=== PATIENT | male | born 1980 | race American Indian/Alaskan Native ===

== ENCOUNTER 2019-02-04 11:15 | Emergency (ER) | payer MEDICARE ==
[2019-02-04 11:25] VITALS: BP 133/70
--- NOTE | 2019-02-04 11:25 | Emergency Department Report ---
Blank Doc - Documentation Documentation: This is a 38-year-old male that presents with sore throat. Exam: ertyhema with thrush noted. This initial assessment/diagnostic orders/clinical plan/treatment(s) is/are subject to change based on patient's health status, clinical progression and re- assessment by fellow clinical providers in the ED. Further treatment and workup at subsequent clinical providers discretion. Patient/guardians urged not to elope from the ED as their condition may be serious if not clinically assessed and managed. Initial orders include: 1- Patient sent to [facility] for further evaluation and treatment 2- strep swab
--- NOTE | 2019-02-04 11:51 | Emergency Department Report ---
ED ENT HPI - General Chief complaint: Sore Throat Stated complaint: THROAT PAIN Time Seen by Provider: 02/04/19 11:23 Source: patient Mode of arrival: Ambulatory Limitations: No Limitations - History of Present Illness Initial comments: This is a 38-year-old male nontoxic, well in appearnce with no signs of distress presents to the ED with c/o sore throat. Patient denies any hoarness or drooling. Denies any fever, chills, headache, nausea, vomiting, chest pain or shortness of breathe. Denies any allergies or PMH. MD complaint: sore throat -: days(s) Location: throat Severity: mild Severity scale (0 -10): 8 Quality: aching Consistency: constant Improves with: none Worsens with: none Associated Symptoms: pain with swallowing, sore throat. denies: fever, cough, gum swelling, toothache, tinnitus, hearing loss, discharge from ear, rhinorrhea - Related Data Previous Rx's Medication Instructions Recorded Last Taken Type Amoxicillin [Amoxicillin TAB] 875 mg PO BID #20 tablet 02/04/19 Unknown Rx Nystatin 400,000 unit PO 4XD 7 Days 02/04/19 Unknown Rx oral.susp Allergies Allergy/AdvReac Type Severity Reaction Status Date / Time No Known Allergies Allergy Verified 02/04/19 11:19 ED Dental HPI - General Chief complaint: Sore Throat Stated complaint: THROAT PAIN Time Seen by Provider: 02/04/19 11:23 Source: patient Mode of arrival: Ambulatory Limitations: No Limitations - Related Data Previous Rx's Medication Instructions Recorded Last Taken Type Amoxicillin [Amoxicillin TAB] 875 mg PO BID #20 tablet 02/04/19 Unknown Rx Nystatin 400,000 unit PO 4XD 7 Days 02/04/19 Unknown Rx oral.susp Allergies Allergy/AdvReac Type Severity Reaction Status Date / Time No Known Allergies Allergy Verified 02/04/19 11:19 ED Review of Systems ROS: Stated complaint: THROAT PAIN Other details as noted in HPI Constitutional: denies: chills, fever Eyes: denies: eye pain, eye discharge, vision change ENT: throat pain. denies: ear pain Respiratory: denies: cough, shortness of breath, wheezing Cardiovascular: denies: chest pain, palpitations Endocrine: no symptoms reported Gastrointestinal: denies: abdominal pain, nausea, diarrhea Genitourinary: denies: urgency, dysuria Musculoskeletal: denies: back pain, joint swelling, arthralgia Skin: denies: rash, lesions Neurological: denies: headache, weakness, paresthesias Psychiatric: denies: anxiety, depression Hematological/Lymphatic: denies: easy bleeding, easy bruising ED Past Medical Hx - Past Medical History Previous Medical History?: No - Surgical History Past Surgical History?: No - Social History Smoking Status: Former Smoker Substance Use Type: None - Medications Home Medications: Home Medications Medication Instructions Recorded Confirmed Last Taken Type Amoxicillin [Amoxicillin TAB] 875 mg PO BID #20 tablet 02/04/19 Unknown Rx Nystatin 400,000 unit PO 4XD 7 Days 02/04/19 Unknown Rx oral.susp ED Physical Exam - General Limitations: No Limitations General appearance: alert, in no apparent distress - Head Head exam: Present: atraumatic, normocephalic - Expanded ENT Exam Expanded Ear exam: Present: normal external inspection Mouth exam: Present: normal external inspection, tongue normal. Absent: drooling, trismus, muffled voice Teeth exam: Present: normal inspection Throat exam: Positive: tonsillar erythema, other (Uvula midline. no abscess. Oral thrush noted.). Negative: tonsillomegaly, tonsillar exudate, R peritonsillar mass, L peritonsillar mass - Neck Neck exam: Present: normal inspection, full ROM. Absent: tenderness, meningismus, lymphadenopathy - Extremities Exam Extremities exam: Present: normal inspection, full ROM - Back Exam Back exam: Present: normal inspection, full ROM - Neurological Exam Neurological exam: Present: alert, oriented X3 - Psychiatric Psychiatric exam: Present: normal affect, normal mood - Skin Skin exam: Present: warm, dry, intact, normal color. Absent: rash ED Course Vital Signs 02/04/19 11:23 Temperature 98.5 F Pulse Rate 78 Blood Pressure 133/70 O2 Sat by Pulse 97 Oximetry - Reevaluation(s) Reevaluation #1: 02/04/19 11:48 Patient is speaking in full sentences with no signs of distress noted. ED Medical Decision Making - Medical Decision Making Patient was instructed to Follow-up with a primary care doctor in 3-5 days or if symptoms worsen and continue return to emergency room as soon as possible. At time of discharge, the patient does not seem toxic or ill in appearance. No acute signs of distress noted. Patient agrees to discharge treatment plan of care. No further questions noted by the patient. Critical care attestation.: If time is entered above; I have spent that time in minutes in the direct care of this critically ill patient, excluding procedure time. ED Disposition Clinical Impression: Oral thrush Pharyngitis Qualifiers: Pharyngitis/tonsillitis etiology: unspecified etiology Qualified Code(s): J02.9 - Acute pharyngitis, unspecified Disposition: TO HOME OR SELFCARE Is pt being admited?: No Does the pt Need Aspirin: No Condition: Stable Instructions: Nystatin (By mouth) Additional Instructions: Follow-up with a primary care doctor in 3-5 days or if symptoms worsen and continue return to emergency room as soon as possible. Prescriptions: Amoxicillin [Amoxicillin TAB] 875 mg PO BID #20 tablet Nystatin 400,000 unit PO 4XD 7 Days oral.susp Referrals: PRIMARY CARE, [Referring] - 3-5 Days EDY VILLA MD [Staff Physician] - 3-5 Days ANNABELLE SKINNER MD [Staff Physician] - 3-5 Days [facility] [Outside] - 3-5 Days [facility] [Outside] - 3-5 Days Forms: Work/School Release Form(ED)
== END 2019-02-04 12:08 | disposition home or self-care (01) ==
LOC: ED 11:15
DX: J02.9 Acute pharyngitis, unspecified (principal); B37.0 Candidal stomatitis
CPT/HCPCS: 87116; 87430; 99283

== ENCOUNTER 2019-04-30 10:46 | Inpatient (IN) | payer MEDICARE, OTHER ==
[2019-04-30] MEDS ORDERED: NACL 0.9% 1000 ML IV ONE (10:56)
--- NOTE | 2019-04-30 10:56 | Event Note ---
ED Screening Note ED Screening Note: hit l foot on dresser last week now with large wound chills now with severe r foot pain pmh none psh none rx none This initial assessment/diagnostic orders/clinical plan/treatment(s) is/are subject to change based on patients health status, clinical progression and re- assessment by fellow clinical providers in the ED. Further treatment and workup at subsequent clinical providers discretion. Patient/guardian urged not to elope from the ED as their condition may be serious if not clinically assessed and managed. Initial orders include:
[2019-04-30] MEDS ORDERED: BOOSTRIX IM ONE (10:59)
[2019-04-30] MEDS ORDERED: NORCO 5/325 PO ONE (11:00)
[2019-04-30] MEDS ORDERED: VANCOMYCIN PHARMACY TO DOSE IV SCH (11:00)
--- NOTE | 2019-04-30 11:20 | Emergency Department Report ---
ED Extremity Problem HPI - General Chief complaint: Extremity Injury, Lower Stated complaint: RT FOOT INJURY Time Seen by Provider: 04/30/19 10:54 Source: patient, family Mode of arrival: Ambulatory Limitations: No Limitations - History of Present Illness Initial comments: 38-year-old male presents to the ED with complaint of right foot injury. Patient states he hit his right foot on the dresser 1 week ago. He reports the foot became swollen, however did not notice any cuts on his foot. States there was no redness. Denies fever. Patient states he has been soaking the foot in Epsom salt but it has gotten worse. Patient has necrosis of the foot. Denies history of diabetes. Has no PCP. MD Complaint: extremity pain, extremity swelling -: week(s) (1) Location: right, other (foot) History of Same: No Quality: aching Consistency: constant Improves with: nothing Worsens with: weight bearing, walking, palpation Associated Symptoms: denies: fever - Related Data Home Medications Medication Instructions Recorded Confirmed Last Taken No Known Home Medications [No 04/30/19 04/30/19 Unknown Reported Home Medications] Allergies Allergy/AdvReac Type Severity Reaction Status Date / Time No Known Allergies Allergy Verified 02/04/19 11:19 ED Review of Systems ROS: Stated complaint: RT FOOT INJURY Other details as noted in HPI Comment: All other systems reviewed and negative Constitutional: denies: chills, fever Musculoskeletal: as per HPI, joint swelling ED Past Medical Hx - Past Medical History Previous Medical History?: No - Surgical History Past Surgical History?: No - Social History Smoking Status: Never Smoker Substance Use Type: None - Medications Home Medications: Home Medications Medication Instructions Recorded Confirmed Last Taken Type No Known Home Medications [No 04/30/19 04/30/19 Unknown History Reported Home Medications] ED Physical Exam - General Limitations: No Limitations General appearance: alert, in no apparent distress - Head Head exam: Present: atraumatic, normocephalic - Eye Eye exam: Present: normal appearance - ENT ENT exam: Present: mucous membranes moist - Neck Neck exam: Present: normal inspection - Respiratory Respiratory exam: Present: normal lung sounds bilaterally. Absent: respiratory distress - Cardiovascular Cardiovascular Exam: Present: normal rhythm, tachycardia - GI/Abdominal GI/Abdominal exam: Absent: distended - Extremities Exam Extremities exam: Present: other (right foot is swollen; anterior, lateral, and plantar aspects of 5th toe is black and necrotic; surrounding area that is boggy with fluid subcutaneously on plantar aspect; 4th toe is swollen with purulent discharge on the plantar aspect of the toe; foul smell present;DP pulse palpable and strong) - Neurological Exam Neurological exam: Present: alert, oriented X3 - Psychiatric Psychiatric exam: Present: normal affect, normal mood - Skin Skin exam: Present: warm, dry ED Course Vital Signs 04/30/19 04/30/19 04/30/19 10:54 11:54 13:00 Temperature 96.7 F L Pulse Rate 102 H 70 79 Respiratory 18 18 18 Rate Blood Pressure 119/75 Blood Pressure 133/70 122/74 [Left] O2 Sat by Pulse 95 97 97 Oximetry - Consultations Consultation #1: 04/30/19 12:45 Spoke w/ Dr Moreira fooot/ankle specialist. Aware of pt, will see. Consultation #2: 04/30/19 13:09 Dr Bingham, vascular, at bedside evaluating patient. ED Medical Decision Making - Lab Data Result diagrams: 04/30/19 11:20 04/30/19 11:20 - Radiology Data Radiology results: report reviewed, image reviewed - Medical Decision Making 38-year-old male who presents to ED with discoloration of right foot. Patient reports he hit his foot on a dresser one week ago, and it progressively turned dark. Patient has combination of dry gangrene and wet gangrene to the fourth and fifth toes, lateral right foot and plantar aspect of the right foot. Dr. Moreira, foot and ankle specialist, was consulted and is aware of the patient. He asked me to obtain vascular surgery consult. Dr. Bingham came down to see the patient. Vital signs normal. Patient is afebrile, wbc's normal, lactic acid is normal. Vancomycin and cefepime given. Labs unremarkable except for hyponatremia. Glucose is normal. Patient admitted to hospitalist, Dr. Pérez, for further management. - Differential Diagnosis gangrene, osteomyelitis Critical Care Time: Yes Critical care time in (mins) excluding proc time.: 35 Critical care attestation.: If time is entered above; I have spent that time in minutes in the direct care of this critically ill patient, excluding procedure time. Critical Care Time: 35 minutes ED Disposition Clinical Impression: Gangrene of right foot Disposition: -09 OP ADMIT IP TO THIS HOSP Is pt being admited?: Yes Condition: Stable Time of Disposition: 13:10
--- NOTE | 2019-04-30 11:32 | XRay Report ---
RIGHT FOOT, 3 views: History: Status post trauma to right fifth toe, draining, concern for osteopenia in There is moderate subcutaneous gas surrounding the right fifth toe. A cellulitis is certainly suspected. No obvious periostitis or bony destruction is identified on x-ray to confirm osteomyelitis. The remaining bony structures are within normal limits. No erosive joint pathology. IMPRESSION: Subcutaneous gas throughout the right fifth toe consistent with a cellulitis. No definitive findings of osteomyelitis on x-ray. If further evaluation is required, MRI right foot with contrast or triple phase bone scan could be considered.
[2019-04-30 11:42] LABS: Hematocrit 28.1 % (35.5-45.6); Hemoglobin 9.5 gm/dl (11.8-15.2); Mean Corpuscular HGB Conc 34 % (32-34); Mean Corpuscular Volume 84 fl (84-94); Platelet Count 402 K/mm3 (140-440); Red Blood Count 3.36 M/mm3 (3.65-5.03); Red Cell Distribution Width 15.3 % (13.2-15.2)
[2019-04-30] MEDS ORDERED: VANCOMYCIN 1,750 MG in NACL 0.9% 500 ML 500 ML IV ONE (12:00)
[2019-04-30 12:02] LABS: Alanine Aminotransferase 22 units/L (7-56); BUN/Creatinine Ratio 17; Blood Urea Nitrogen 17 mg/dL (9-20); Calcium 8.7 mg/dL (8.4-10.2); Hemolysis Index 0
[2019-04-30] MEDS ORDERED: MAXIPIME/NS 1 GM/100 ML 1 GM/100 ML BAG IV ONE (12:06)
[2019-04-30 12:20] LABS: Anisocytosis 1+; Eosinophils % (Manual) 0 % (0.0-4.3); Ovalocytes 1+; Platelet Estimate Consistent w Auto; Poikilocytosis 1+; Tear Drop Cells Few; Total Cells Counted 100
--- NOTE | 2019-04-30 13:27 | Consultation ---
History of Present Illness - Reason for Consult Consult date: 04/30/19 Right 5th toe gangrene - History of Present Illness Patient with a history of hitting toe on an end table 1 week ago with p rogression of discoloration presents to the ER with gangrene of the right fifth toe as well as the lateral aspect of the right fourth toe extending to the metatarsal heads. Dry gangrene distally with wet gangrene proximally. The margins are well demarcated. The patient has an easily palpable dorsalis pedis and posterior tibial artery on both feet. His right foot is diffusely edematous and warm without exudates. The patient states that he has no history of IV drug abuse. Medications and Allergies Allergies Allergy/AdvReac Type Severity Reaction Status Date / Time No Known Allergies Allergy Verified 02/04/19 11:19 Home Medications Medication Instructions Recorded Confirmed Last Taken Type No Known Home Medications [No 04/30/19 04/30/19 Unknown History Reported Home Medications] Active Meds: Active Medications Vancomycin HCl 1,750 mg/ (Sodium Chloride) 535 mls @ 333 mls/hr IV ONCE ONE; Protocol Stop: 04/30/19 13:36 Last Admin: 04/30/19 12:22 Dose: 333 mls/hr Documented by: Vancomycin HCl 1,250 mg/ (Sodium Chloride) 275 mls @ 166.667 mls/hr IV Q12HR S Review of Systems All systems: negative Exam - Constitutional Vitals: Temp Pulse Resp BP Pulse Ox 96.7 F L 102 H 18 119/75 95 04/30/19 10:54 04/30/19 10:54 04/30/19 10:54 04/30/19 10:54 04/30/19 10:54 General appearance: Present: no acute distress - EENT Eyes: Present: PERRL, EOM intact ENT: hearing intact - Neck Neck: Present: supple, normal ROM - Respiratory Respiratory effort: normal - Cardiovascular Rhythm: regular - Extremities Extremities: abnormal - Abdominal General gastrointestinal: Present: deferred Male genitourinary: Present: deferred - Rectal Rectal Exam: deferred - Psychiatric Psychiatric: appropriate mood/affect, cooperative Results - Labs CBC & Chem 7: 04/30/19 11:20 04/30/19 11:20 Labs: Abnormal lab results 04/30/19 04/30/19 Range/Units 11:20 11:20 WBC 3.7 L (4.5-11.0) K/mm3 RBC 3.36 L (3.65-5.03) M/mm3 Hgb 9.5 L (11.8-15.2) gm/dl Hct 28.1 L (35.5-45.6) % RDW 15.3 H (13.2-15.2) % Monocytes % (Manual) 12.0 H (0.0-7.3) % Basophils % (Manual) 2.0 H (0.0-1.8) % Lymphocytes # (Manual) 0.6 L (1.2-5.4) K/mm3 Sodium 130 L (137-145) mmol/L Chloride 90.4 L (98-107) mmol/L Glucose 116 H (75-100) mg/dL Alkaline Phosphatase 720 H (35-129) units/L Albumin 3.0 L (3.9-5) g/dL Assessment and Plan Patient presenting with right fifth and lateral right fourth toe gangrene. He has no underlying diabetes or disease state consistent with microvascular disease. His x-ray demonstrates no fracture of his toe however, subcutaneous emphysema is present involving the right fifth phalanx. The gas does not appear to extend to the metatarsal. Would recommend arterial duplex with ABIs however, would expect this to be normal. Additionally, will order a CTA of the abdomen and pelvis with runoff to the feet. Given the distribution of the gangrene, it appears to be embolic in nature. The patient will most likely require surgical amputation of the fifth toe. It is uncertain at the fourth toe is viable given the distribution of the gangrene along the lateral aspect. ER consulted Dr. Moreira.
--- NOTE | 2019-04-30 15:27 | Vascular Lab Report ---
PROCEDURE: VL ARTERIAL DUPLEX LE BILAT TECHNIQUE: Duplex Doppler ultrasound of either bilateral lower extremity arteries or arterial bypass grafts was performed with image documentation. HISTORY: gangrenous foot COMPARISONS: None . FINDINGS: RIGHT LOWER EXTREMITY: Arterial waveforms: Triphasic . Thrombus: None . Stenosis: None . Color signal: Normal . Significant segmental velocity differential: None . Arterial bypass graft: Not present .Stenosis: None . LEFT LOWER EXTREMITY: Arterial waveforms: Triphasic . Thrombus: None . Stenosis: None . Color signal: Normal . Significant segmental velocity differential: None . Arterial bypass graft: Not present .Stenosis: None . IMPRESSION: No evidence of significant arterial insufficiency in the lower extremities. This document is electronically signed by Josselin Taylor MD., April 30 2019 03:24:50 PM ET
--- NOTE | 2019-04-30 16:28 | Cat Scan Report ---
PROCEDURE: CT ANGIO ABD/FEMORAL ABD AORTA HISTORY: right 5th toe gangrene FINDINGS: Contrast-enhanced CT angiography of the abdomen, pelvis and both legs was performed following the int ravenous administration of iodinated contrast. Data was reformatted into sagittal and coronal planes. ABDOMEN: The abdominal aorta is normal in size. The celiac axis, superior mesenteric artery and inferior mesen teric artery are all patent. There are 2 left renal arteries and single right renal artery, all of which are widely patent. The visualized portion of the liver appears unremarkable. Most the spleen is excluded from the exam. No focal pancreatic lesion is seen. The gallbladder is distended but is otherwise unremarkable. The kidneys are not included in their entirety on the examination. The visualized portion of the kidn eys is unremarkable. Both kidneys excrete the injected contrast. The adrenal glands are excluded from the exam. CTA PELVIS: The right and left common iliac, external iliac, internal iliac and common femoral arteries are widel y patent. There is a normal appendix. There is no evidence of diverticulitis. The urinary bladder is within nor mal limits. CTA right leg: The right superficial femoral, deep femoral, popliteal, anterior tibial, posterior tibial and peronea l arteries appear widely patent. There is a patent dorsalis pedis and a patent medial plantar arch. CTA left leg: The left superficial femoral, deep femoral, popliteal, anterior tibial, posterior tibia l and peroneal arteries are widely patent. There is a patent dorsalis pedis and patent medial plantar arch. IMPRESSION: CTA ABDOMEN: The mesenteric arterial vasculature and renal arterial vasculature are widely patent Pelvis: The pelvic arterial vasculature is widely patent CTA right le vessel runoff to the right ankle CTA left le vessel runoff to the left ankle This document is electronically signed by Tulio Gee MD., April 30 2019 04:27:03 PM ET
[2019-04-30] MEDS ORDERED: IBUPROFEN PO PRN (20:03)
[2019-04-30] MEDS ORDERED: REGLAN IV PRN (20:03)
[2019-04-30] MEDS ORDERED: SODIUM CHLORIDE FLUSH SYRINGE 10 ML IV PRN (20:03)
[2019-04-30] MEDS ORDERED: ZOFRAN IV PRN (20:03)
[2019-04-30] MEDS: NACL 0.9% 1000 ML 1,000 ML IV SCH (20:38)
[2019-04-30] MEDS: SODIUM CHLORIDE FLUSH SYRINGE 10 ML IV SCH ×2 (20:39→22:54)
[2019-04-30] MEDS ORDERED: VANCOMYCIN 1,250 MG in NACL 0.9% 250ML 250 ML IV SCH (22:00)
[2019-04-30] MEDS: CLEOCIN 900 MG/50 mL 900 MG/50 ML BAG IV SCH (22:49)
[2019-04-30] MEDS: PEPCID IV SCH (22:51)
[2019-04-30 23:12] LABS: Bilirubin,Urine NEG (Negative); Blood,Urine SM (Negative); Color,Urine Yellow (Yellow); Mucus,Urine FEW /HPF
[2019-04-30 23:20] LABS: Amphetamine Screen,Urine PRESUMPTIVE NEGATIVE; Benzodiazepines Screen,Urine PRESUMPTIVE NEGATIVE; Cocaine Screen,Urine PRESUMPTIVE NEGATIVE; Methadone Screen,Urine PRESUMPTIVE NEGATIVE; Opiate Screen,Urine PRESUMPTIVE NEGATIVE
[2019-04-30 23:52] LABS: Cannabinoid Screen,Urine PRESUMPTIVE POSITIVE
[2019-05-01] MEDS: CLEOCIN 900 MG/50 mL 900 MG/50 ML BAG IV SCH ×2 (05:16→13:14)
--- NOTE | 2019-05-01 07:31 | History and Physical Report ---
History of Present Illness Date of examination: 04/30/19 Date of admission: 04/30/19 13:11 Chief complaint: Rt foot discoloration History of present illness: 38-year-old male presents to the ED with complaint of right foot injury. Patient states he hit his right foot on the dresser 1 week ago with progression of discoloration presents to the ER with gangrene of the right fifth toe as well as the lateral aspect of the right fourth toe extending to the distal foot. Dry gangrene distally with wet gangrene proximally. The margins are well demarcated. His right foot is diffusely edematous and warm without exudates. The patient states that he has no history of IV drug abuse.Not a smoker Past Medical History Previous Medical History?: No Surgical History Past Surgical History?: No Social History Smoking Status: Never Smoker Substance Use Type: None Medications Home Medications: Home Medications Medication Instructions Recorded Confirmed Last Taken Type No Known Home Medications [No 04/30/19 04/30/19 Unknown History Reported Home Medications] Review of Systems ROS: Stated complaint: RT FOOT INJURY Other details as noted in HPI Comment: All other systems reviewed and negative Constitutional: denies: chills, fever Musculoskeletal: as per HPI, joint swelling Medications and Allergies Allergies Allergy/AdvReac Type Severity Reaction Status Date / Time No Known Allergies Allergy Verified 02/04/19 11:19 Home Medications Medication Instructions Recorded Confirmed Last Taken Type No Known Home Medications [No 04/30/19 04/30/19 Unknown History Reported Home Medications] Active Meds: Active Medications Acetaminophen (Tylenol) 650 mg PO Q4H PRN PRN Reason: Pain MILD(1-3)/Fever >100.5/TERRY Famotidine (Pepcid) 20 mg IV BID MARIPOSA Last Admin: 04/30/19 22:51 Dose: 20 mg Documented by: Hydromorphone HCl (Dilaudid) 0.5 mg IV Q3H PRN PRN Reason: Pain , Severe (7-10) Sodium Chloride (Nacl 0.9% 1000 Ml) 1,000 mls @ 75 mls/hr IV DIRECT MARIPOSA Last Admin: 04/30/19 20:38 Dose: 75 mls/hr Documented by: Clindamycin HCl (Cleocin 900 Mg/50 Ml) 900 mg in 50 mls @ 100 mls/hr IV Q8HR MARIPOSA; Protocol Last Admin: 05/01/19 05:16 Dose: 100 mls/hr Documented by: Ibuprofen (Ibuprofen) 600 mg PO Q6H PRN PRN Reason: Pain, Mild (1-3) Metoclopramide HCl (Reglan) 10 mg IV Q6H PRN PRN Reason: Nausea And Vomiting Ondansetron HCl (Zofran) 4 mg IV Q8H PRN PRN Reason: Nausea And Vomiting Oxycodone/Acetaminophen (Percocet 5/325) 1 tab PO Q6H PRN PRN Reason: Pain, Moderate (4-6) Sodium Chloride (Sodium Chloride Flush Syringe 10 Ml) 10 ml IV BID [facility] Last Admin: 04/30/19 22:54 Dose: Not Given Documented by: Sodium Chloride (Sodium Chloride Flush Syringe 10 Ml) 10 ml IV PRN PRN PRN Reason: LINE FLUSH Exam - Constitutional Vitals: Temp Pulse Resp BP Pulse Ox 97.5 F L 91 H 18 128/79 93 05/01/19 05:48 05/01/19 05:48 05/01/19 05:48 05/01/19 05:48 05/01/19 05:48 General appearance: Present: no acute distress, well-nourished - EENT Eyes: Present: PERRL ENT: hearing intact, clear oral mucosa - Neck Neck: Present: supple, normal ROM - Respiratory Respiratory effort: normal Respiratory: bilateral: CTA - Cardiovascular Heart rate: 78 Rhythm: regular Heart Sounds: Present: S1 & S2. Absent: rub, click - Extremities Extremities: no ischemia, pulses intact, pulses symmetrical, No edema, abnormal (Rt foot gangrene changes involving Rt 5th toe and Rt 4th toe partially.) Peripheral Pulses: within normal limits - Abdominal General gastrointestinal: Present: soft, non-tender, non-distended, normal bowel sounds Male genitourinary: Present: normal - Rectal Rectal Exam: deferred - Integumentary Integumentary: Present: clear, warm, dry - Musculoskeletal Musculoskeletal: gait normal, strength equal bilaterally - Psychiatric Psychiatric: appropriate mood/affect, intact judgment & insight - Neurologic Neurologic: CNII-XII intact, moves all extremities - Allied Health Allied health notes reviewed: nursing, case management Results - Labs CBC & Chem 7: 04/30/19 11:20 04/30/19 11:20 Labs: Laboratory Last Values WBC 3.7 K/mm3 (4.5-11.0) L 04/30/19 11:20 RBC 3.36 M/mm3 (3.65-5.03) L 04/30/19 11:20 Hgb 9.5 gm/dl (11.8-15.2) L 04/30/19 11:20 Hct 28.1 % (35.5-45.6) L 04/30/19 11:20 MCV 84 fl (84-94) 04/30/19 11:20 MCH 28 pg (28-32) 04/30/19 11:20 MCHC 34 % (32-34) 04/30/19 11:20 RDW 15.3 % (13.2-15.2) H 04/30/19 11:20 Plt Count 402 K/mm3 (140-440) 04/30/19 11:20 Add Manual Diff Complete 04/30/19 11:20 Total Counted 100 04/30/19 11:20 Seg Neuts % (Manual) 70.0 % (40.0-70.0) 04/30/19 11:20 1.0 % 04/30/19 11:20 15.0 % (13.4-35.0) 04/30/19 11:20 Reactive Lymphs % (Man) 0 % 04/30/19 11:20 12.0 % (0.0-7.3) H 04/30/19 11:20 0 % (0.0-4.3) 04/30/19 11:20 2.0 % (0.0-1.8) H 04/30/19 11:20 0 % 04/30/19 11:20 0 % 04/30/19 11:20 0 % 04/30/19 11:20 0 % 04/30/19 11:20 Nucleated RBC % Not Reportable 04/30/19 11:20 Seg Neutrophils # Man 2.6 K/mm3 (1.8-7.7) 04/30/19 11:20 Band Neutrophils # 0.0 K/mm3 04/30/19 11:20 0.6 K/mm3 (1.2-5.4) L 04/30/19 11:20 Abs React Lymphs (Man) 0.0 K/mm3 04/30/19 11:20 0.4 K/mm3 (0.0-0.8) 04/30/19 11:20 0.0 K/mm3 (0.0-0.4) 04/30/19 11:20 0.1 K/mm3 (0.0-0.1) 04/30/19 11:20 0.0 K/mm3 04/30/19 11:20 0.0 K/mm3 04/30/19 11:20 0.0 K/mm3 04/30/19 11:20 Blast Cells # 0.0 K/mm3 04/30/19 11:20 WBC Morphology Not Reportable 04/30/19 11:20 Hypersegmented Neuts Not Reportable 04/30/19 11:20 Hyposegmented Neuts Not Reportable 04/30/19 11:20 Hypogranular Neuts Not Reportable 04/30/19 11:20 Not Reportable 04/30/19 11:20 Not Reportable 04/30/19 11:20 Not Reportable 04/30/19 11:20 Not Reportable 04/30/19 11:20 Not Reportable 04/30/19 11:20 Not Reportable 04/30/19 11:20 Consistent w auto 04/30/19 11:20 Not Reportable 04/30/19 11:20 Plt Clumps, EDTA Not Reportable 04/30/19 11:20 Not Reportable 04/30/19 11:20 Not Reportable 04/30/19 11:20 Not Reportable 04/30/19 11:20 Plt Morphology Comment Not Reportable 04/30/19 11:20 RBC Morphology Not Reportable 04/30/19 11:20 Dimorphic RBCs Not Reportable 04/30/19 11:20 Not Reportable 04/30/19 11:20 Not Reportable 04/30/19 11:20 1+ 04/30/19 11:20 1+ 04/30/19 11:20 Not Reportable 04/30/19 11:20 Not Reportable 04/30/19 11:20 Not Reportable 04/30/19 11:20 Not Reportable 04/30/19 11:20 Not Reportable 04/30/19 11:20 Not Reportable 04/30/19 11:20 Few 04/30/19 11:20 1+ 04/30/19 11:20 Not Reportable 04/30/19 11:20 Not Reportable 04/30/19 11:20 Not Reportable 04/30/19 11:20 Not Reportable 04/30/19 11:20 Not Reportable 04/30/19 11:20 Not Reportable 04/30/19 11:20 Not Reportable 04/30/19 11:20 Acanthocytes (Spur) Not Reportable 04/30/19 11:20 Rouleaux Not Reportable 04/30/19 11:20 Not Reportable 04/30/19 11:20 Not Reportable 04/30/19 11:20 Not Reportable 04/30/19 11:20 Not Reportable 04/30/19 11:20 Hem Pathologist Commnt No 04/30/19 11:20 Sodium 130 mmol/L (137-145) L 04/30/19 11:20 Potassium 4.3 mmol/L (3.6-5.0) 04/30/19 11:20 Chloride 90.4 mmol/L (98-107) L 04/30/19 11:20 Carbon Dioxide 25 mmol/L (22-30) 04/30/19 11:20 19 mmol/L 04/30/19 11:20 BUN 17 mg/dL (9-20) 04/30/19 11:20 1.0 mg/dL (0.8-1.5) 04/30/19 11:20 Estimated GFR > 60 ml/min 04/30/19 11:20 17 % 04/30/19 11:20 Glucose 116 mg/dL (75-100) H 04/30/19 11:20 5.8 % (4-6) 04/30/19 11:20 Lactic Acid 0.70 mmol/L (0.7-2.0) 04/30/19 16:19 Calcium 8.7 mg/dL (8.4-10.2) 04/30/19 11:20 0.40 mg/dL (0.1-1.2) 04/30/19 11:20 AST 37 units/L (5-40) 04/30/19 11:20 ALT 22 units/L (7-56) 04/30/19 11:20 720 units/L (35-129) H 04/30/19 11:20 8.1 g/dL (6.3-8.2) 04/30/19 11:20 3.0 g/dL (3.9-5) L 04/30/19 11:20 0.6 % 04/30/19 11:20 Yellow (Yellow) 04/30/19 23:00 Clear (Clear) 04/30/19 23:00 6.0 (5.0-7.0) 04/30/19 23:00 Ur Specific [place] 1.032 (1.003-1.030) H 04/30/19 23:00 100 mg/dl mg/dL (Negative) 04/30/19 23:00 Neg mg/dL (Negative) 04/30/19 23:00 Neg mg/dL (Negative) 04/30/19 23:00 Sm (Negative) 04/30/19 23:00 Neg (Negative) 04/30/19 23:00 Neg (Negative) 04/30/19 23:00 4.0 mg/dL (<2.0) 04/30/19 23:00 Ur Leukocyte Esterase Neg (Negative) 04/30/19 23:00 4.0 /HPF (0.0-6.0) 04/30/19 23:00 10.0 /HPF (0.0-6.0) 04/30/19 23:00 Few /HPF 04/30/19 23:00 Presumptive negative 04/30/19 23:00 Presumptive negative 04/30/19 23:00 Ur Barbiturates Screen Presumptive negative 04/30/19 23:00 Ur Phencyclidine Scrn Presumptive negative 04/30/19 23:00 Ur Amphetamines Screen Presumptive negative 04/30/19 23:00 U Benzodiazepines Scrn Presumptive negative 04/30/19 23:00 Presumptive negative 04/30/19 23:00 U Marijuana (THC) Screen Presumptive positive 04/30/19 23:00 Disclamer 04/30/19 23:00 - Imaging and Cardiology Imaging and Cardiology: Rt Foot xray IMPRESSION: Subcutaneous gas throughout the right fifth toe consistent with a cellulitis. No definitive findings of osteomyelitis on x-ray. If further evaluation is required, MRI right foot with contrast or triple phase bone scan could be considered. CTA Abdomen with run off IMPRESSION: CTA ABDOMEN: The mesenteric arterial vasculature and renal arterial vasculature are widely patent Pelvis: The pelvic arterial vasculature is widely patent CTA right le vessel runoff to the right ankle CTA left le vessel runoff to the left ankle This document is electronically signed by Tulio Gee MD., April 30 2019 04:27:03 PM ET Transcribed By: MIKA Arterial duplex Mike IMPRESSION: No evidence of significant arterial insufficiency in the lower extremities. Assessment and Plan Advance Directives: Yes (Full code) VTE prophylaxis?: Chemical Plan of care discussed with patient/family: Yes - Patient Problems (1) Gangrene of right foot Current Visit: Yes Status: Acute Plan to address problem: IV Clindamycin started ID consult requested IR consult requested Patient is not a smoker Embolic in nature?? (2) Cellulitis and abscess of foot Current Visit: Yes Status: Acute Plan to address problem: IV abx for now (3) Anemia Current Visit: Yes Status: Chronic Qualifiers: Anemia type: unspecified type Qualified Code(s): D64.9 - Anemia, unspecified Plan to address problem: Anemia w/u (4) Mild tetrahydrocannabinol (THC) abuse Current Visit: Yes Status: Chronic Plan to address problem: Counselled (5) DVT prophylaxis Current Visit: Yes Status: Acute Plan to address problem: On Lovenox
[2019-05-01 07:52] LABS: Hematocrit 23.5 % (35.5-45.6); Hemoglobin 7.9 gm/dl (11.8-15.2); Mean Corpuscular HGB Conc 34 % (32-34); Mean Corpuscular Volume 82 fl (84-94); Platelet Count 326 K/mm3 (140-440); Red Blood Count 2.85 M/mm3 (3.65-5.03); Red Cell Distribution Width 14.8 % (13.2-15.2)
[2019-05-01 08:17] LABS: Alanine Aminotransferase 22 units/L (7-56); Albumin 2.5 g/dL (3.9-5); BUN/Creatinine Ratio 14; Blood Urea Nitrogen 13 mg/dL (9-20); Calcium 7.9 mg/dL (8.4-10.2); Hemolysis Index 0
--- NOTE | 2019-05-01 09:12 | Progress Note ---
Assessment and Plan We will obtain a CTA of the chest to determine if there is any additional source. If none is found, the patient may need a cardiac consult and echocardiogram. The patient has excellent arterial flow in to his foot and will heal any surgical procedure. Subjective Date of service: 05/01/19 Principal diagnosis: right fourth and fifth toe gangrene Interval history: Patient with right fourth and fifth toe gangrene. A CTA of the abdomen and pelvis and vascular ultrasound review. The patient is essentially wide open arterial vasculature. There is no flow to the fifth digit with continuous emphysema around the fifth phalanges. Objective - Constitutional Vitals: Vital Signs - 12hr 04/30/19 05/01/19 23:49 05:48 Temperature 102.9 F H 97.5 F L Pulse Rate 87 91 H Respiratory 18 18 Rate Blood Pressure 129/72 128/79 O2 Sat by Pulse 95 93 Oximetry General appearance: Present: no acute distress - EENT Eyes: EOM intact ENT: hearing intact - Neck Neck: supple, normal ROM - Respiratory Respiratory effort: normal - Breasts Breasts: deferred Extremities: abnormal - Gastrointestinal General gastrointestinal: Present: deferred Rectal Exam: deferred - Genitourinary Male genitourinary: deferred - Neurologic Neurologic: no focal deficits - Psychiatric Psychiatric: appropriate mood/affect, cooperative - Labs CBC & Chem 7: 05/01/19 07:15 05/01/19 07:15 Labs: Abnormal lab results 04/30/19 04/30/19 04/30/19 Range/Units 11:20 11:20 23:00 WBC 3.7 L (4.5-11.0) K/mm3 RBC 3.36 L (3.65-5.03) M/mm3 Hgb 9.5 L (11.8-15.2) gm/dl Hct 28.1 L (35.5-45.6) % MCV (84-94) fl RDW 15.3 H (13.2-15.2) % Monocytes % (Manual) 12.0 H (0.0-7.3) % Basophils % (Manual) 2.0 H (0.0-1.8) % Lymphocytes # (Manual) 0.6 L (1.2-5.4) K/mm3 Sodium 130 L (137-145) mmol/L Chloride 90.4 L (98-107) mmol/L Glucose 116 H (75-100) mg/dL Calcium (8.4-10.2) mg/dL Alkaline Phosphatase 720 H (35-129) units/L Albumin 3.0 L (3.9-5) g/dL Ur Specific [place] 1.032 H (1.003-1.030) 05/01/19 05/01/19 Range/Units 07:15 07:15 WBC 3.5 L (4.5-11.0) K/mm3 RBC 2.85 L (3.65-5.03) M/mm3 Hgb 7.9 L (11.8-15.2) gm/dl Hct 23.5 L (35.5-45.6) % MCV 82 L (84-94) fl RDW (13.2-15.2) % Monocytes % (Manual) (0.0-7.3) % Basophils % (Manual) (0.0-1.8) % Lymphocytes # (Manual) (1.2-5.4) K/mm3 Sodium 133 L (137-145) mmol/L Chloride 96.0 L (98-107) mmol/L Glucose 102 H (75-100) mg/dL Calcium 7.9 L (8.4-10.2) mg/dL Alkaline Phosphatase 568 H (35-129) units/L Albumin 2.5 L (3.9-5) g/dL Ur Specific [place] (1.003-1.030) Medications & Allergies - Medications Allergies/Adverse Reactions: Allergies No Known Allergies Allergy (Verified 02/04/19 11:19) Home Medications: Home Medications Medication Instructions Recorded Confirmed Last Taken Type No Known Home Medications [No 04/30/19 04/30/19 Unknown History Reported Home Medications] Active Medications: Generic Name Dose Route Start Last Admin Trade Name Freq PRN Reason Stop Dose Admin Acetaminophen 650 mg 04/30/19 20:03 Tylenol PO Q4H PRN Pain MILD(1-3)/Fever >100.5/TERRY Famotidine 20 mg 04/30/19 22:00 04/30/19 22:51 Pepcid IV 20 mg BID MARIPOSA Administration Hydromorphone HCl 0.5 mg 04/30/19 20:03 Dilaudid IV Q3H PRN Pain , Severe (7-10) Sodium Chloride 1,000 mls @ 75 mls/hr 04/30/19 21:00 04/30/19 20:38 Nacl 0.9% 1000 Ml IV 75 mls/hr DIRECT MARIPOSA Administration Clindamycin HCl 900 mg in 50 mls @ 100 mls/hr 04/30/19 22:00 05/01/19 05:16 Cleocin 900 Mg/50 Ml IV 100 mls/hr Q8HR MARIPOSA Administration Protocol Ibuprofen 600 mg 04/30/19 20:03 Ibuprofen PO Q6H PRN Pain, Mild (1-3) Metoclopramide HCl 10 mg 04/30/19 20:03 Reglan IV Q6H PRN Nausea And Vomiting Ondansetron HCl 4 mg 04/30/19 20:03 Zofran IV Q8H PRN Nausea And Vomiting Oxycodone/Acetaminophen 1 tab 04/30/19 20:03 Percocet 5/325 PO Q6H PRN Pain, Moderate (4-6) Sodium Chloride 10 ml 04/30/19 22:00 04/30/19 22:54 Sodium Chloride Flush Syringe 10 Ml IV Not Given BID MARIPOSA Sodium Chloride 10 ml 04/30/19 20:03 Sodium Chloride Flush Syringe 10 Ml IV PRN PRN LINE FLUSH
--- NOTE | 2019-05-01 09:12 | Progress Note ---
Assessment and Plan Assessment and plan: patient is 38-year-old male presents to the ED with complaint of right foot injury. Patient states he hit his right foot on the dresser 1 week ago with progression of discoloration presents to the ER with gangrene of the right fifth toe as well as the lateral aspect of the right fourth toe extending to the distal foot. Dry gangrene distally with wet gangrene proximally. The margins are well demarcated. His right foot is diffusely edematous and warm without exudates. The patient states that he has no history of IV drug abuse.Not a smoker Right foot cellulitis, gangrene On iv Abx Consult ID Gangrene toes right foot Bilat infiltrates on CXR Pneumonia versus pulm edema will get BNP, Echo Hyponatremia Repeat in am marijuana use Full code status History Interval history: Right foot swelling, pain, discoloration Hospitalist Physical - Physical exam Narrative exam: Gen: Not in acute distress, lying in bed, HEENT: Normocephalic, atraumatic Neck: supple, no JVD Heart: S1 and S2 reg, no murmurs, rubs or gallop Lungs: Bilateral crackles, no wheeze Abd: soft, mild tender lower abdomen, normal BS Ext: Right foot covered with dressing, Neuro: Awake,alert, oriented x 3, moves all ext, non focal Psych:Normal mood - Constitutional Vitals: Temp Pulse Resp BP Pulse Ox 97.5 F L 91 H 18 128/79 93 05/01/19 05:48 05/01/19 05:48 05/01/19 05:48 05/01/19 05:48 05/01/19 05:48 General appearance: Present: no acute distress Results - Labs CBC & Chem 7: 05/02/19 07:14 05/02/19 07:14 Labs: Laboratory Last Values WBC 3.5 K/mm3 (4.5-11.0) L 05/01/19 07:15 RBC 2.85 M/mm3 (3.65-5.03) L 05/01/19 07:15 Hgb 7.9 gm/dl (11.8-15.2) L 05/01/19 07:15 Hct 23.5 % (35.5-45.6) L 05/01/19 07:15 MCV 82 fl (84-94) L 05/01/19 07:15 MCH 28 pg (28-32) 05/01/19 07:15 MCHC 34 % (32-34) 05/01/19 07:15 RDW 14.8 % (13.2-15.2) 05/01/19 07:15 Plt Count 326 K/mm3 (140-440) 05/01/19 07:15 Add Manual Diff Complete 04/30/19 11:20 Total Counted 100 04/30/19 11:20 Seg Neuts % (Manual) 70.0 % (40.0-70.0) 04/30/19 11:20 1.0 % 04/30/19 11:20 15.0 % (13.4-35.0) 04/30/19 11:20 Reactive Lymphs % (Man) 0 % 04/30/19 11:20 12.0 % (0.0-7.3) H 04/30/19 11:20 0 % (0.0-4.3) 04/30/19 11:20 2.0 % (0.0-1.8) H 04/30/19 11:20 0 % 04/30/19 11:20 0 % 04/30/19 11:20 0 % 04/30/19 11:20 0 % 04/30/19 11:20 Nucleated RBC % Not Reportable 04/30/19 11:20 Seg Neutrophils # Man 2.6 K/mm3 (1.8-7.7) 04/30/19 11:20 Band Neutrophils # 0.0 K/mm3 04/30/19 11:20 0.6 K/mm3 (1.2-5.4) L 04/30/19 11:20 Abs React Lymphs (Man) 0.0 K/mm3 04/30/19 11:20 0.4 K/mm3 (0.0-0.8) 04/30/19 11:20 0.0 K/mm3 (0.0-0.4) 04/30/19 11:20 0.1 K/mm3 (0.0-0.1) 04/30/19 11:20 0.0 K/mm3 04/30/19 11:20 0.0 K/mm3 04/30/19 11:20 0.0 K/mm3 04/30/19 11:20 Blast Cells # 0.0 K/mm3 04/30/19 11:20 WBC Morphology Not Reportable 04/30/19 11:20 Hypersegmented Neuts Not Reportable 04/30/19 11:20 Hyposegmented Neuts Not Reportable 04/30/19 11:20 Hypogranular Neuts Not Reportable 04/30/19 11:20 Not Reportable 04/30/19 11:20 Not Reportable 04/30/19 11:20 Not Reportable 04/30/19 11:20 Not Reportable 04/30/19 11:20 Not Reportable 04/30/19 11:20 Not Reportable 04/30/19 11:20 Consistent w auto 04/30/19 11:20 Not Reportable 04/30/19 11:20 Plt Clumps, EDTA Not Reportable 04/30/19 11:20 Not Reportable 04/30/19 11:20 Not Reportable 04/30/19 11:20 Not Reportable 04/30/19 11:20 Plt Morphology Comment Not Reportable 04/30/19 11:20 RBC Morphology Not Reportable 04/30/19 11:20 Dimorphic RBCs Not Reportable 04/30/19 11:20 Not Reportable 04/30/19 11:20 Not Reportable 04/30/19 11:20 1+ 04/30/19 11:20 1+ 04/30/19 11:20 Not Reportable 04/30/19 11:20 Not Reportable 04/30/19 11:20 Not Reportable 04/30/19 11:20 Not Reportable 04/30/19 11:20 Not Reportable 04/30/19 11:20 Not Reportable 04/30/19 11:20 Few 04/30/19 11:20 1+ 04/30/19 11:20 Not Reportable 04/30/19 11:20 Not Reportable 04/30/19 11:20 Not Reportable 04/30/19 11:20 Not Reportable 04/30/19 11:20 Not Reportable 04/30/19 11:20 Not Reportable 04/30/19 11:20 Not Reportable 04/30/19 11:20 Acanthocytes (Spur) Not Reportable 04/30/19 11:20 Rouleaux Not Reportable 04/30/19 11:20 Not Reportable 04/30/19 11:20 Not Reportable 04/30/19 11:20 Not Reportable 04/30/19 11:20 Not Reportable 04/30/19 11:20 Hem Pathologist Commnt No 04/30/19 11:20 Sodium 133 mmol/L (137-145) L 05/01/19 07:15 Potassium 3.9 mmol/L (3.6-5.0) 05/01/19 07:15 Chloride 96.0 mmol/L (98-107) L 05/01/19 07:15 Carbon Dioxide 24 mmol/L (22-30) 05/01/19 07:15 17 mmol/L 05/01/19 07:15 BUN 13 mg/dL (9-20) 05/01/19 07:15 0.9 mg/dL (0.8-1.5) 05/01/19 07:15 Estimated GFR > 60 ml/min 05/01/19 07:15 14 % 05/01/19 07:15 Glucose 102 mg/dL (75-100) H 05/01/19 07:15 5.8 % (4-6) 04/30/19 11:20 Lactic Acid 0.70 mmol/L (0.7-2.0) 04/30/19 16:19 Calcium 7.9 mg/dL (8.4-10.2) L 05/01/19 07:15 0.40 mg/dL (0.1-1.2) 05/01/19 07:15 AST 34 units/L (5-40) 05/01/19 07:15 ALT 22 units/L (7-56) 05/01/19 07:15 568 units/L (35-129) H 05/01/19 07:15 6.6 g/dL (6.3-8.2) 05/01/19 07:15 2.5 g/dL (3.9-5) L 05/01/19 07:15 0.6 % 05/01/19 07:15 Yellow (Yellow) 04/30/19 23:00 Clear (Clear) 04/30/19 23:00 6.0 (5.0-7.0) 04/30/19 23:00 Ur Specific [place] 1.032 (1.003-1.030) H 04/30/19 23:00 100 mg/dl mg/dL (Negative) 04/30/19 23:00 Neg mg/dL (Negative) 04/30/19 23:00 Neg mg/dL (Negative) 04/30/19 23:00 Sm (Negative) 04/30/19 23:00 Neg (Negative) 04/30/19 23:00 Neg (Negative) 04/30/19 23:00 4.0 mg/dL (<2.0) 04/30/19 23:00 Ur Leukocyte Esterase Neg (Negative) 04/30/19 23:00 4.0 /HPF (0.0-6.0) 04/30/19 23:00 10.0 /HPF (0.0-6.0) 04/30/19 23:00 Few /HPF 04/30/19 23:00 Presumptive negative 04/30/19 23:00 Presumptive negative 04/30/19 23:00 Ur Barbiturates Screen Presumptive negative 04/30/19 23:00 Ur Phencyclidine Scrn Presumptive negative 04/30/19 23:00 Ur Amphetamines Screen Presumptive negative 04/30/19 23:00 U Benzodiazepines Scrn Presumptive negative 04/30/19 23:00 Presumptive negative 04/30/19 23:00 U Marijuana (THC) Screen Presumptive positive 04/30/19 23:00 Disclamer 04/30/19 23:00 Active Medications - Current Medications Current Medications: Generic Name Dose Route Start Last Admin Trade Name Freq PRN Reason Stop Dose Admin Acetaminophen 650 mg 04/30/19 20:03 Tylenol PO Q4H PRN Pain MILD(1-3)/Fever >100.5/TERRY Famotidine 20 mg 04/30/19 22:00 04/30/19 22:51 Pepcid IV 20 mg BID MARIPOSA Administration Hydromorphone HCl 0.5 mg 04/30/19 20:03 Dilaudid IV Q3H PRN Pain , Severe (7-10) Sodium Chloride 1,000 mls @ 75 mls/hr 04/30/19 21:00 04/30/19 20:38 Nacl 0.9% 1000 Ml IV 75 mls/hr DIRECT MARIPOSA Administration Clindamycin HCl 900 mg in 50 mls @ 100 mls/hr 04/30/19 22:00 05/01/19 05:16 Cleocin 900 Mg/50 Ml IV 100 mls/hr Q8HR MARIPOSA Administration Protocol Ibuprofen 600 mg 04/30/19 20:03 Ibuprofen PO Q6H PRN Pain, Mild (1-3) Metoclopramide HCl 10 mg 04/30/19 20:03 Reglan IV Q6H PRN Nausea And Vomiting Ondansetron HCl 4 mg 04/30/19 20:03 Zofran IV Q8H PRN Nausea And Vomiting Oxycodone/Acetaminophen 1 tab 04/30/19 20:03 Percocet 5/325 PO Q6H PRN Pain, Moderate (4-6) Sodium Chloride 10 ml 04/30/19 22:00 04/30/19 22:54 Sodium Chloride Flush Syringe 10 Ml IV Not Given BID [facility] Sodium Chloride 10 ml 04/30/19 20:03 Sodium Chloride Flush Syringe 10 Ml IV PRN PRN LINE FLUSH
[2019-05-01 09:53] LABS: Eosinophils # (Auto) 0.1 K/mm3 (0.0-0.4); Eosinophils % (Auto) 1.8 % (0.0-4.3); Monocytes # (Auto) 0.2 K/mm3 (0.0-0.8); Monocytes % (Auto) 5.6 % (0.0-7.3)
[2019-05-01] MEDS: PEPCID IV SCH ×2 (09:53→21:46)
[2019-05-01] MEDS: SODIUM CHLORIDE FLUSH SYRINGE 10 ML IV SCH (09:54)
[2019-05-01] MEDS: TYLENOL PO PRN (10:14)
[2019-05-01] MEDS: DILAUDID IV PRN ×2 (10:16→22:09)
[2019-05-01] MEDS: NACL 0.9% 1000 ML 1,000 ML IV SCH ×2 (10:22→21:58)
[2019-05-01 12:06] LABS: Band Neutrophils # (Manual) 0.1 K/mm3; Basophils % (Manual) 0 % (0.0-1.8); Eosinophils % (Manual) 0 % (0.0-4.3); Hypochromasia 1+; Total Cells Counted 100
[2019-05-01 12:07] LABS: Platelet Estimate Consistent w Auto; Tear Drop Cells Few
--- NOTE | 2019-05-01 14:48 | XRay Report ---
PROCEDURE: XR CHEST 1V AP TECHNIQUE: Chest radiograph, AP portable upright view. HISTORY: Cough. COMPARISONS: None currently available. FINDINGS: Cardiac silhouette is within normal limits. Prominent bilateral pulmonary markings with airspace opacities. Worse on the left. Focal ill-defined opacity in the left retrocardiac region. No pneumothorax. No effusion. There are no suspicious osseous lesions. IMPRESSION: * Suspect pulmonary vascular congestion with edema. Differential diagnosis includes acute pneumonia and pneumonitis. This document is electronically signed by Waldo Hart MD., May 01 2019 02:47:07 PM ET
[2019-05-01] MEDS: HEPARIN SUB-Q SCH ×2 (16:36→21:46)
--- NOTE | 2019-05-01 17:22 | Consultation ---
History of Present Illness - Reason for Consult Consult date: 05/01/19 R foot cellulitis and gangrene Requesting physician: YADI JACKSON - History of Present Illness The patient is a 38-year-old male with no significant past medical history. He states that he hit his right foot to the dresser about a week ago. Following this, the foot started getting swollen as well and his is fourth and fifth toe started turning dark. He tried to self treat this by soaking the foot in Epsom salts and also applying some kind of alcohol solution that he obtained from [place]. With it getting worse with fevers and pain, he came to the emergency room yesterday and was hospitalized. He was noted to have findings concerning for gangrene of the fifth toe. Vascular surgery was consulted, CTA abdomen with bilateral lower extremity runoff was ordered and was unremarkable. Surgery is also been consulted for possible amputation. ID was consulted for antibiotic recommendations. He has been having fever along with pain in his right foot. MAXIMUM TEMPERATURE here has been 103.1F. Occasionally smokes some illicit substances, denies any IV drug use. Denies any MSM behavior. Refusing HIV test. History of STD. Drinks alcohol occasionally Review of Systems: General: + for fever HEENT: no new visual disturbance Respiratory: No cough, sputum, hemoptysis or shortness of breath Cardiovascular: No chest pain, syncope Gastrointestinal: No nausea, vomiting or diarrhea Genitourinary: No dysuria or hematuria Musculoskeletal: No new or worsening neck pain or back pain Neurologic: No headaches, seizures Hematologic: No easy bruising or bleeding Endocrine: No night sweats or acute weight loss Skin: negative for rash, jaundice Psychiatric: No suicidal or homicidal ideation Past History Past Medical History: No medical history Family history: no significant family history Medications and Allergies Allergies Allergy/AdvReac Type Severity Reaction Status Date / Time No Known Allergies Allergy Verified 02/04/19 11:19 Home Medications Medication Instructions Recorded Confirmed Last Taken Type No Known Home Medications [No 04/30/19 04/30/19 Unknown History Reported Home Medications] Active Meds: Active Medications Acetaminophen (Tylenol) 650 mg PO Q4H PRN PRN Reason: Pain MILD(1-3)/Fever >100.5/TERRY Last Admin: 05/01/19 10:14 Dose: 650 mg Documented by: Famotidine (Pepcid) 20 mg IV BID [facility] Last Admin: 05/01/19 09:53 Dose: 20 mg Documented by: Heparin Sodium (Porcine) (Heparin) 5,000 unit SUB-Q Q8HR [facility] Last Admin: 05/01/19 16:36 Dose: 5,000 unit Documented by: Hydromorphone HCl (Dilaudid) 0.5 mg IV Q3H PRN PRN Reason: Pain , Severe (7-10) Last Admin: 05/01/19 10:16 Dose: 0.5 mg Documented by: Sodium Chloride (Nacl 0.9% 1000 Ml) 1,000 mls @ 75 mls/hr IV DIRECT [facility] Last Admin: 05/01/19 10:22 Dose: 75 mls/hr Documented by: Clindamycin HCl (Cleocin 900 Mg/50 Ml) 900 mg in 50 mls @ 100 mls/hr IV Q8HR [facility]; Protocol Last Admin: 05/01/19 13:14 Dose: 100 mls/hr Documented by: Ibuprofen (Ibuprofen) 600 mg PO Q6H PRN PRN Reason: Pain, Mild (1-3) Metoclopramide HCl (Reglan) 10 mg IV Q6H PRN PRN Reason: Nausea And Vomiting Ondansetron HCl (Zofran) 4 mg IV Q8H PRN PRN Reason: Nausea And Vomiting Oxycodone/Acetaminophen (Percocet 5/325) 1 tab PO Q6H PRN PRN Reason: Pain, Moderate (4-6) Sodium Chloride (Sodium Chloride Flush Syringe 10 Ml) 10 ml IV BID [facility] Last Admin: 05/01/19 09:54 Dose: 10 ml Documented by: Sodium Chloride (Sodium Chloride Flush Syringe 10 Ml) 10 ml IV PRN PRN PRN Reason: LINE FLUSH Physical Examination - Physical Exam Narrative exam: Physical Exam: Constitutional: Alert, cooperative. No acute distress Head, Ears, Nose: Normocephalic, atraumatic. External ears, nose normal Eyes: Conjunctivae/corneas clear. No icterus. No ptosis. Neck: Supple, no meningeal signs Oral: dentition fair, no thrush Cardiovascular: S1, S2 normal. Respiratory: Good air entry, clear to auscultation bilaterally GI: Soft, non-tender; bowel sounds normal. No peritoneal signs Musculoskeletal: R foot with swelling, warmth and tenderness, 5th toe with gangrene and foul smell, 4th toe with swelling. Skin: No rash or abscess Hem/Lymphatic: No palpable cervical or supraclavicular nodes. No lymphangitis Psych: Mood ok. Affect normal Neurological: Awake, alert, oriented. No gross abnormality - Constitutional Vitals: Vital Signs Temp Pulse Resp BP Pulse Ox 99.3 F 74 20 122/74 95 05/01/19 12:05 05/01/19 12:05 05/01/19 12:05 05/01/19 12:05 05/01/19 12:05 Temperature -Last 24 Hours Temperature 99.3 F Temperature 103.1 F Temperature 97.5 F Temperature 102.9 F Results - Labs CBC & Chem 7: 05/01/19 07:15 05/01/19 07:15 Labs: Abnormal lab results 04/30/19 05/01/19 05/01/19 Range/Units 23:00 07:15 07:15 WBC 3.5 L (4.5-11.0) K/mm3 RBC 2.85 L (3.65-5.03) M/mm3 Hgb 7.9 L (11.8-15.2) gm/dl Hct 23.5 L (35.5-45.6) % MCV 82 L (84-94) fl Seg Neutrophils % 79.3 H (40.0-70.0) % Monocytes % (Manual) 20.0 H (0.0-7.3) % Lymphocytes # (Manual) 0.5 L (1.2-5.4) K/mm3 Sodium 133 L (137-145) mmol/L Chloride 96.0 L (98-107) mmol/L Glucose 102 H (75-100) mg/dL Calcium 7.9 L (8.4-10.2) mg/dL Alkaline Phosphatase 568 H (35-129) units/L Albumin 2.5 L (3.9-5) g/dL Ur Specific [place] 1.032 H (1.003-1.030) - Imaging and Cardiology Chest x-ray: report reviewed, image reviewed (Chest x-ray shows diffuse bilateral air space opacities) Assessment and Plan Imaging: Arterial duplex was negative for significant arterial insufficiency X-ray of the right foot showed subcutaneous gas throughout the right fifth toe. Cultures: 04/30/2019 blood culture: Negative A/P: 38-year-old male with no significant past medical history, admitted with: 1) Right foot cellulitis with gangrene of the 5th toe: ?traumatic in etiology. Xray with evidence of gas. Surgery has been consulted for possible amputation. Patient not diabetic. Vascular surgery also evaluated, no arterial insufficiency noted on imaging studies. 2) Sepsis secondary to above. 3) CXR with b/l airspace disease: no respiratory symptoms. ?pneumonia. Continue abx. Recs: Treat empirically with IV cefepime, Flagyl and vancomycin Clinically, no concern for necrotizing fasciitis Agree with surgical consultation to eval for amputation of the toe Cooper Smith MD [facility] C: [phone] O: [phone] F: [phone]
[2019-05-01] MEDS: FLAGYL 500 MG/100 ML 500 MG/100 ML BAG IV SCH ×2 (19:29→21:58)
[2019-05-01] MEDS: PERCOCET 5/325 PO PRN (19:33)
--- NOTE | 2019-05-01 20:32 | Cat Scan Report ---
PROCEDURE: CT ANGIO CHEST TECHNIQUE: Computerized tomographic angiography of the chest was performed after the IV injection of iodinated nonionic contrast including image processing. The image data was postprocessed using 2-di mensional multiplanar reformatted (MPR) and 3-dimensional (MIP and/or volume rendered) techniques. Au tomated exposure control, adjustment of mA and/or kV according to patient size, or iterative reconstr uction dose optimization techniques were utilized. CT DOSE LENGTH PRODUCT: 534.1 mGycm HISTORY: 5th toe embolism COMPARISONS: CXR 05/01/2019 . FINDINGS: Heart and pericardium: Normal. Thoracic aorta: Normal. Pulmonary vasculature: Normal. Lymph nodes: No enlarged thoracic lymph nodes. Lungs: There are numerous diffuse patchy groundglass infiltrates present in all lobes of both lungs. The right middle lobe is partially spared. Areas of tree-in-bud formation are noted. Findings sugges t infection, likely atypical infection such as viral or atypical bacterial. Bacterial is not entirely excluded. Hypersensitivity pneumonitis is also not excluded. Pleural space: No effusion, thickening, or pneumothorax. Musculoskeletal structures: No significant abnormality. Upper abdominal structures: No significant abnormality. IMPRESSION: 1. No evidence for pulmonary embolism 2. Diffuse patchy asymmetric groundglass opacities bilaterally. Findings are strongly suggestive of i nfection. Bacterial, atypical bacterial, viral be considered. This document is electronically signed by Chelsea Victoria MD., May 01 2019 08:31:11 PM ET
[2019-05-01] MEDS: MAXIPIME/NS 2 GM/100 ML 2 GM/100 ML BAG IV SCH (21:49)
[2019-05-02] MEDS: PERCOCET 5/325 PO PRN ×2 (00:25→10:42)
[2019-05-02] MEDS: SODIUM CHLORIDE FLUSH SYRINGE 10 ML IV SCH ×3 (00:25→21:49)
[2019-05-02] MEDS: DILAUDID IV PRN ×3 (05:39→21:56)
[2019-05-02] MEDS: HEPARIN SUB-Q SCH ×3 (05:44→21:49)
[2019-05-02] MEDS: FLAGYL 500 MG/100 ML 500 MG/100 ML BAG IV SCH ×3 (05:48→21:48)
[2019-05-02 07:43] LABS: Hematocrit 23.4 % (35.5-45.6); Mean Corpuscular HGB Conc 34 % (32-34); Mean Corpuscular Volume 82 fl (84-94); Platelet Count 341 K/mm3 (140-440); Red Blood Count 2.85 M/mm3 (3.65-5.03); Red Cell Distribution Width 14.8 % (13.2-15.2)
[2019-05-02 08:03] LABS: BUN/Creatinine Ratio 15; Blood Urea Nitrogen 12 mg/dL (9-20); Calcium 7.9 mg/dL (8.4-10.2); Hemolysis Index 0
[2019-05-02] MEDS: PEPCID IV SCH ×2 (10:36→21:49)
[2019-05-02] MEDS: MAXIPIME/NS 2 GM/100 ML 2 GM/100 ML BAG IV SCH ×2 (10:36→21:48)
--- NOTE | 2019-05-02 11:20 | Progress Note ---
Assessment and Plan Cultures: 04/30/2019 blood culture: Negative A/P: 38-year-old male with no significant past medical history, admitted with: 1) Right foot cellulitis with gangrene of the 5th toe: ?traumatic in etiology. Xray with evidence of gas. Surgery has been consulted for possible amputation. Patient not diabetic. Arterial duplex was negative for significant arterial insufficiency. Vascular on board. X-ray of the right foot showed subcutaneous gas throughout the right fifth toe. 2) Sepsis secondary to above. 3) CXR with b/l airspace disease: no respiratory symptoms. ?pneumonia. Continue abx. 4) Elevated alk phos: ?bone related. Monitor for now. AST, ALT and bilirubin are normal. 5) New fever: Fever noted on 05/01/19 103.1. etiology most likely 5th toe gangrene. low grade fever continuing Recs: Continue Cefepime 2 gm IV every 12 hours, D2 Contiinue Flagyl 500mg every 8 hours, D2 Continue Vancomycin PK consult follow-up surgical evaluation for 5th toe amputation [facility] M: [phone] O:[phone] Subjective Date of service: 05/02/19 Principal diagnosis: right fourth and fifth toe gangrene Interval history: Patient seen and examined. Sitting up in bed. Denies right 5th toe pain. low grade fever. Objective - Exam Narrative Exam: Constitutional: Alert, cooperative. No acute distress Head, Ears, Nose: Normocephalic, atraumatic. External ears, nose normal Eyes: Conjunctivae/corneas clear. No icterus. No ptosis. Neck: Supple, no meningeal signs Oral: dentition fair, no thrush Cardiovascular: S1, S2 normal. Respiratory: Good air entry, clear to auscultation bilaterally GI: Soft, non-tender; bowel sounds normal. No peritoneal signs Musculoskeletal: R foot with swelling, warmth and tenderness, 5th toe with gangrene and foul smell, 4th toe with swelling. Skin: No rash or abscess Hem/Lymphatic: No palpable cervical or supraclavicular nodes. No lymphangitis Psych: Mood ok. Affect normal Neurological: Awake, alert, oriented. No gross abnormality - Constitutional Vitals: Vital Signs Temp Pulse Resp BP Pulse Ox 100.2 F H 80 18 130/80 97 05/02/19 04:49 05/02/19 04:49 05/02/19 04:49 05/02/19 04:49 05/02/19 04:49 Temperature -Last 24 Hours Temperature 100.2 F Temperature 99.6 F Temperature 100.0 F Temperature 99.3 F - Labs CBC & Chem 7: 05/02/19 07:14 05/02/19 07:14 Labs: Abnormal lab results 05/01/19 05/02/19 05/02/19 Range/Units 07:15 07:14 07:14 WBC 3.2 L (4.5-11.0) K/mm3 RBC 2.85 L (3.65-5.03) M/mm3 Hgb 8.0 L (11.8-15.2) gm/dl Hct 23.4 L (35.5-45.6) % MCV 82 L (84-94) fl Monocytes % (Manual) 20.0 H (0.0-7.3) % Lymphocytes # (Manual) 0.5 L (1.2-5.4) K/mm3 Sodium 132 L (137-145) mmol/L Chloride 94.5 L (98-107) mmol/L Glucose 114 H (75-100) mg/dL Calcium 7.9 L (8.4-10.2) mg/dL
[2019-05-02] MEDS ORDERED: VANCOMYCIN PHARMACY TO DOSE IV SCH (12:00)
[2019-05-02] MEDS: ROBITUSSIN PO PRN (12:05)
[2019-05-02] MEDS ORDERED: VANCOMYCIN 1,750 MG in NACL 0.9% 500 ML 500 ML IV ONE (12:15)
--- NOTE | 2019-05-02 16:06 | Progress Note ---
Assessment and Plan Assessment and plan: patient is 38-year-old male presents to the ED with complaint of right foot injury. Patient states he hit his right foot on the dresser 1 week ago with progression of discoloration presents to the ER with gangrene of the right fifth toe as well as the lateral aspect of the right fourth toe extending to the distal foot. Dry gangrene distally with wet gangrene proximally. The margins are well demarcated. His right foot is diffusely edematous and warm without exudates. The patient states that he has no history of IV drug abuse.Not a smoker Sepsis due to right foot cellulitis, gangrene and bilateral pneumonia. present on admission Now on Cefepime and Vancomycin Right foot cellulitis, gangrene On iv Abx- Cefepime and Vancomycin ID Physician following Gangrene toes right foot On iv Abx Dr. Bingham following fever due to sepsis Leukopenia Follow Bilat infiltrates on CXR, ground glass appearance on CT Most likely Pneumonia versus pulm edema BNP normal Echo EF 45-50%. Will consult cardiology consulted Pulm Hyponatremia Repeat in am marijuana use Full code status History Interval history: Right foot swelling, pain, discoloration cough Hospitalist Physical - Physical exam Narrative exam: Gen: Not in acute distress, lying in bed, HEENT: Normocephalic, atraumatic Neck: supple, no JVD Heart: S1 and S2 reg, no murmurs, rubs or gallop Lungs: Bilateral crackles, no wheeze Abd: soft, mild tender lower abdomen, normal BS Ext: Right foot covered with dressing, Neuro: Awake,alert, oriented x 3, moves all ext, non focal Psych:Normal mood - Constitutional Vitals: Temp Pulse Resp BP Pulse Ox 102.8 F H 85 20 129/77 96 05/02/19 11:55 05/02/19 11:55 05/02/19 11:55 05/02/19 11:55 05/02/19 11:55 General appearance: Present: no acute distress Results - Labs CBC & Chem 7: 05/02/19 07:14 05/02/19 07:14 Labs: Laboratory Last Values WBC 3.2 K/mm3 (4.5-11.0) L 05/02/19 07:14 RBC 2.85 M/mm3 (3.65-5.03) L 05/02/19 07:14 Hgb 8.0 gm/dl (11.8-15.2) L 05/02/19 07:14 Hct 23.4 % (35.5-45.6) L 05/02/19 07:14 MCV 82 fl (84-94) L 05/02/19 07:14 MCH 28 pg (28-32) 05/02/19 07:14 MCHC 34 % (32-34) 05/02/19 07:14 RDW 14.8 % (13.2-15.2) 05/02/19 07:14 Plt Count 341 K/mm3 (140-440) 05/02/19 07:14 Gates % (Auto) 5.6 % (0.0-7.3) 05/01/19 07:15 Eos % (Auto) 1.8 % (0.0-4.3) 05/01/19 07:15 [place] # 0.2 K/mm3 (0.0-0.8) 05/01/19 07:15 Eos # 0.1 K/mm3 (0.0-0.4) 05/01/19 07:15 Baso # 0.0 K/mm3 (0.0-0.1) 05/01/19 07:15 Add Manual Diff Complete 05/01/19 07:15 Total Counted 100 05/01/19 07:15 Seg Neutrophils % 79.3 % (40.0-70.0) H 05/01/19 07:15 Seg Neuts % (Manual) 64.0 % (40.0-70.0) 05/01/19 07:15 2.0 % 05/01/19 07:15 14.0 % (13.4-35.0) 05/01/19 07:15 Reactive Lymphs % (Man) 0 % 05/01/19 07:15 20.0 % (0.0-7.3) H 05/01/19 07:15 0 % (0.0-4.3) 05/01/19 07:15 0 % (0.0-1.8) 05/01/19 07:15 0 % 05/01/19 07:15 0 % 05/01/19 07:15 0 % 05/01/19 07:15 0 % 05/01/19 07:15 Nucleated RBC % Not Reportable 05/01/19 07:15 Seg Neutrophils # 2.5 K/mm3 (1.8-7.7) 05/01/19 07:15 Seg Neutrophils # Man 2.2 K/mm3 (1.8-7.7) 05/01/19 07:15 Band Neutrophils # 0.1 K/mm3 05/01/19 07:15 0.5 K/mm3 (1.2-5.4) L 05/01/19 07:15 Abs React Lymphs (Man) 0.0 K/mm3 05/01/19 07:15 0.7 K/mm3 (0.0-0.8) 05/01/19 07:15 0.0 K/mm3 (0.0-0.4) 05/01/19 07:15 0.0 K/mm3 (0.0-0.1) 05/01/19 07:15 0.0 K/mm3 05/01/19 07:15 0.0 K/mm3 05/01/19 07:15 0.0 K/mm3 05/01/19 07:15 Blast Cells # 0.0 K/mm3 05/01/19 07:15 WBC Morphology Not Reportable 05/01/19 07:15 Hypersegmented Neuts Not Reportable 05/01/19 07:15 Hyposegmented Neuts Not Reportable 05/01/19 07:15 Hypogranular Neuts Not Reportable 05/01/19 07:15 Not Reportable 05/01/19 07:15 Not Reportable 05/01/19 07:15 Not Reportable 05/01/19 07:15 Not Reportable 05/01/19 07:15 Not Reportable 05/01/19 07:15 Not Reportable 05/01/19 07:15 Consistent w auto 05/01/19 07:15 Not Reportable 05/01/19 07:15 Plt Clumps, EDTA Not Reportable 05/01/19 07:15 Not Reportable 05/01/19 07:15 Not Reportable 05/01/19 07:15 Not Reportable 05/01/19 07:15 Plt Morphology Comment Not Reportable 05/01/19 07:15 RBC Morphology Not Reportable 05/01/19 07:15 Dimorphic RBCs Not Reportable 05/01/19 07:15 Not Reportable 05/01/19 07:15 1+ 05/01/19 07:15 Not Reportable 05/01/19 07:15 Not Reportable 05/01/19 07:15 Not Reportable 05/01/19 07:15 Not Reportable 05/01/19 07:15 Not Reportable 05/01/19 07:15 Not Reportable 05/01/19 07:15 Not Reportable 05/01/19 07:15 Not Reportable 05/01/19 07:15 Few 05/01/19 07:15 Not Reportable 05/01/19 07:15 Not Reportable 05/01/19 07:15 Not Reportable 05/01/19 07:15 Not Reportable 05/01/19 07:15 Not Reportable 05/01/19 07:15 Not Reportable 05/01/19 07:15 Not Reportable 05/01/19 07:15 Few 05/01/19 07:15 Acanthocytes (Spur) Not Reportable 05/01/19 07:15 Rouleaux Not Reportable 05/01/19 07:15 Not Reportable 05/01/19 07:15 Not Reportable 05/01/19 07:15 Not Reportable 05/01/19 07:15 Not Reportable 05/01/19 07:15 Hem Pathologist Commnt No 05/01/19 07:15 Sodium 132 mmol/L (137-145) L 05/02/19 07:14 Potassium 3.8 mmol/L (3.6-5.0) 05/02/19 07:14 Chloride 94.5 mmol/L (98-107) L 05/02/19 07:14 Carbon Dioxide 25 mmol/L (22-30) 05/02/19 07:14 16 mmol/L 05/02/19 07:14 BUN 12 mg/dL (9-20) 05/02/19 07:14 0.8 mg/dL (0.8-1.5) 05/02/19 07:14 Estimated GFR > 60 ml/min 05/02/19 07:14 15 % 05/02/19 07:14 Glucose 114 mg/dL (75-100) H 05/02/19 07:14 5.8 % (4-6) 04/30/19 11:20 Lactic Acid 0.70 mmol/L (0.7-2.0) 04/30/19 16:19 Calcium 7.9 mg/dL (8.4-10.2) L 05/02/19 07:14 0.40 mg/dL (0.1-1.2) 05/01/19 07:15 AST 34 units/L (5-40) 05/01/19 07:15 ALT 22 units/L (7-56) 05/01/19 07:15 568 units/L (35-129) H 05/01/19 07:15 NT-Pro-B Natriuret Pep 297.9 pg/mL (0-450) 05/01/19 15:48 6.6 g/dL (6.3-8.2) 05/01/19 07:15 2.5 g/dL (3.9-5) L 05/01/19 07:15 0.6 % 05/01/19 07:15 Yellow (Yellow) 04/30/19 23:00 Clear (Clear) 04/30/19 23:00 6.0 (5.0-7.0) 04/30/19 23:00 Ur Specific [place] 1.032 (1.003-1.030) H 04/30/19 23:00 100 mg/dl mg/dL (Negative) 04/30/19 23:00 Neg mg/dL (Negative) 04/30/19 23:00 Neg mg/dL (Negative) 04/30/19 23:00 Sm (Negative) 04/30/19 23:00 Neg (Negative) 04/30/19 23:00 Neg (Negative) 04/30/19 23:00 4.0 mg/dL (<2.0) 04/30/19 23:00 Ur Leukocyte Esterase Neg (Negative) 04/30/19 23:00 4.0 /HPF (0.0-6.0) 04/30/19 23:00 10.0 /HPF (0.0-6.0) 04/30/19 23:00 Few /HPF 04/30/19 23:00 Presumptive negative 04/30/19 23:00 Presumptive negative 04/30/19 23:00 Ur Barbiturates Screen Presumptive negative 04/30/19 23:00 Ur Phencyclidine Scrn Presumptive negative 04/30/19 23:00 Ur Amphetamines Screen Presumptive negative 04/30/19 23:00 U Benzodiazepines Scrn Presumptive negative 04/30/19 23:00 Presumptive negative 04/30/19 23:00 U Marijuana (THC) Screen Presumptive positive 04/30/19 23:00 Disclamer 04/30/19 23:00 Active Medications - Current Medications Current Medications: Generic Name Dose Route Start Last Admin Trade Name Freq PRN Reason Stop Dose Admin Acetaminophen 650 mg 04/30/19 20:03 05/01/19 10:14 Tylenol PO 650 mg Q4H PRN Administration Pain MILD(1-3)/Fever >100.5/TERRY Famotidine 20 mg 04/30/19 22:00 05/02/19 10:36 Pepcid IV 20 mg BID [facility] Administration Guaifenesin 200 mg 05/02/19 09:15 05/02/19 12:05 Robitussin PO 200 mg Q4H PRN Administration Cough Heparin Sodium (Porcine) 5,000 unit 05/01/19 16:00 05/02/19 13:01 Heparin SUB-Q 5,000 unit Q8HR [facility] Administration Hydromorphone HCl 0.5 mg 04/30/19 20:03 05/02/19 14:51 Dilaudid IV 0.5 mg Q3H PRN Administration Pain , Severe (7-10) Sodium Chloride 1,000 mls @ 75 mls/hr 04/30/19 21:00 05/01/19 21:58 Nacl 0.9% 1000 Ml IV 75 mls/hr DIRECT [facility] Administration Cefepime HCl 2 gm in 100 mls @ 200 mls/hr 05/01/19 22:00 05/02/19 10:36 Maxipime/Ns 2 Gm/100 Ml IV 200 mls/hr Q12HR [facility] Administration Protocol Metronidazole 500 mg in 100 mls @ 100 mls/hr 05/01/19 18:00 05/02/19 13:01 Flagyl 500 Mg/100 Ml IV 100 mls/hr Q8HR [facility] Administration Protocol Vancomycin HCl 1,250 mg/ 275 mls @ 166.667 mls/hr 05/03/19 01:00 Sodium Chloride IV Q12H [facility] Ibuprofen 600 mg 04/30/19 20:03 05/02/19 12:16 Ibuprofen PO 600 mg Q6H PRN Administration Pain, Mild (1-3) Metoclopramide HCl 10 mg 04/30/19 20:03 Reglan IV Q6H PRN Nausea And Vomiting Ondansetron HCl 4 mg 04/30/19 20:03 Zofran IV Q8H PRN Nausea And Vomiting Oxycodone/Acetaminophen 1 tab 04/30/19 20:03 05/02/19 10:42 Percocet 5/325 PO 1 tab Q6H PRN Administration Pain, Moderate (4-6) Sodium Chloride 10 ml 04/30/19 22:00 05/02/19 10:37 Sodium Chloride Flush Syringe 10 Ml IV 10 ml BID [facility] Administration Sodium Chloride 10 ml 04/30/19 20:03 Sodium Chloride Flush Syringe 10 Ml IV PRN PRN LINE FLUSH
[2019-05-03] MEDS: VANCOMYCIN 1,250 MG in NACL 0.9% 250ML 250 ML IV SCH ×2 (01:23→13:12)
[2019-05-03] MEDS: ROBITUSSIN PO PRN ×2 (01:27→18:05)
[2019-05-03] MEDS: DILAUDID IV PRN ×3 (03:59→22:07)
[2019-05-03] MEDS: HEPARIN SUB-Q SCH ×3 (05:22→21:18)
[2019-05-03] MEDS: FLAGYL 500 MG/100 ML 500 MG/100 ML BAG IV SCH ×3 (05:22→21:18)
[2019-05-03] MEDS: TYLENOL PO PRN (05:31)
[2019-05-03 07:22] LABS: Hematocrit 24.6 % (35.5-45.6); Hemoglobin 8.4 gm/dl (11.8-15.2); Mean Corpuscular HGB Conc 34 % (32-34); Mean Corpuscular Volume 82 fl (84-94); Platelet Count 345 K/mm3 (140-440); Red Blood Count 3.01 M/mm3 (3.65-5.03); Red Cell Distribution Width 14.8 % (13.2-15.2)
[2019-05-03 07:53] LABS: BUN/Creatinine Ratio 17; Blood Urea Nitrogen 12 mg/dL (9-20); Calcium 7.9 mg/dL (8.4-10.2); Hemolysis Index 0
[2019-05-03] MEDS: MAXIPIME/NS 2 GM/100 ML 2 GM/100 ML BAG IV SCH ×2 (09:36→21:19)
[2019-05-03] MEDS: PEPCID IV SCH ×2 (09:36→21:18)
[2019-05-03] MEDS: SODIUM CHLORIDE FLUSH SYRINGE 10 ML IV SCH ×2 (09:37→21:18)
--- NOTE | 2019-05-03 10:42 | Progress Note ---
Assessment and Plan Cultures: 04/30/2019 blood: no growth 05/01/2019 sputum : contaminated A/P: 38-year-old male with no significant past medical history, admitted with: 1) Right foot cellulitis with gangrene of the 5th toe: ?traumatic in etiology. Xray with evidence of gas. Surgery has been consulted for possible amputation. Patient not diabetic. Arterial duplex was negative for significant arterial in sufficiency. Vascular on board. X-ray of the right foot showed subcutaneous gas throughout the right fifth toe. 2) Sepsis secondary to above. 3) CXR with b/l airspace disease: no respiratory symptoms. ?pneumonia. Continue abx. 4) Elevated alk phos: ?bone related. Monitor for now. AST, ALT and bilirubin are normal. 5) New fever: continuing. etiology most likely 5th toe gangrene. low grade fe marce continuing Recs: Continue Cefepime 2 gm IV every 12 hours, D3 Contiinue Flagyl 500mg every 8 hours, D3 Continue Vancomycin PK consult follow-up surgical evaluation for 5th toe amputation [facility] M: [phone] O:[phone] Subjective Date of service: 05/03/19 Principal diagnosis: right fourth and fifth toe gangrene Interval history: Patient seen and examined. Sitting up in bed. Denies right 5th toe pain. +Fever Objective - Exam Narrative Exam: Constitutional: Alert, cooperative. No acute distress Head, Ears, Nose: Normocephalic, atraumatic. External ears, nose normal Eyes: Conjunctivae/corneas clear. No icterus. No ptosis. Neck: Supple, no meningeal signs Oral: dentition fair, no thrush Cardiovascular: S1, S2 normal. Respiratory: Good air entry, clear to auscultation bilaterally GI: Soft, non-tender; bowel sounds normal. No peritoneal signs Musculoskeletal: R foot with swelling, warmth and tenderness, 5th toe with gangrene and foul smell, 4th toe with swelling. Skin: No rash or abscess Hem/Lymphatic: No palpable cervical or supraclavicular nodes. No lymphangitis Psych: Mood ok. Affect normal Neurological: Awake, alert, oriented. No gross abnormality - Constitutional Vitals: Vital Signs Temp Pulse Resp BP Pulse Ox 102.0 F H 94 H 18 140/73 84 05/03/19 04:24 05/03/19 04:24 05/03/19 05:31 05/03/19 04:24 05/03/19 04:24 Temperature -Last 24 Hours Temperature 102.0 F Temperature 98.3 F Temperature 102.8 F - Labs CBC & Chem 7: 05/03/19 06:56 05/03/19 06:56 Labs: Abnormal lab results 05/03/19 05/03/19 Range/Units 06:56 06:56 WBC 2.6 L (4.5-11.0) K/mm3 RBC 3.01 L (3.65-5.03) M/mm3 Hgb 8.4 L (11.8-15.2) gm/dl Hct 24.6 L (35.5-45.6) % MCV 82 L (84-94) fl Sodium 134 L (137-145) mmol/L Chloride 96.4 L (98-107) mmol/L Creatinine 0.7 L (0.8-1.5) mg/dL Glucose 102 H (75-100) mg/dL Calcium 7.9 L (8.4-10.2) mg/dL
--- NOTE | 2019-05-03 11:16 | Consultation ---
History of Present Illness Consult date: 05/03/19 Requesting physician: CLARISA AGUIRRE Consult reason: other (cardiomyopathy ) History of present illness: The pt is a 38-year-old male with no significant past medical history who presented on 04/30 with c/o right 5th toe pain after stumping his toe on a night stand. He was subsequently found to have right foot cellulitis with gangrene of the 5th toe and suspected sepsis. He underwent tte which showed EF 45-50%, mild LVH, LA mildly dilated, RV mild to mod dilated, RA mod to severely dilated, mild MR, mild to mod TR. Cardiology has been consulted for further evaluation of mild LV dysfunction. Pt denies any cardiac complaints, including chest pain, palpitations, n/v, diaphoresis, dizziness or syncope. He denies any prior cardiac issues. Past History Past Medical History: No medical history Family history: no significant family history Medications and Allergies Allergies Allergy/AdvReac Type Severity Reaction Status Date / Time No Known Allergies Allergy Verified 02/04/19 11:19 Home Medications Medication Instructions Recorded Confirmed Last Taken Type No Known Home Medications [No 04/30/19 04/30/19 Unknown History Reported Home Medications] Active Meds: Active Medications Acetaminophen (Tylenol) 650 mg PO Q4H PRN PRN Reason: Pain MILD(1-3)/Fever >100.5/TERRY Last Admin: 05/03/19 05:31 Dose: 650 mg Documented by: Famotidine (Pepcid) 20 mg IV BID [facility] Last Admin: 05/03/19 09:36 Dose: 20 mg Documented by: Guaifenesin (Robitussin) 200 mg PO Q4H PRN PRN Reason: Cough Last Admin: 05/03/19 01:27 Dose: 200 mg Documented by: Heparin Sodium (Porcine) (Heparin) 5,000 unit SUB-Q Q8HR [facility] Last Admin: 05/03/19 05:22 Dose: 5,000 unit Documented by: Hydromorphone HCl (Dilaudid) 0.5 mg IV Q3H PRN PRN Reason: Pain , Severe (7-10) Last Admin: 05/03/19 03:59 Dose: 0.5 mg Documented by: Sodium Chloride (Nacl 0.9% 1000 Ml) 1,000 mls @ 75 mls/hr IV DIRECT [facility] Last Admin: 05/01/19 21:58 Dose: 75 mls/hr Documented by: Cefepime HCl (Maxipime/Ns 2 Gm/100 Ml) 2 gm in 100 mls @ 200 mls/hr IV Q12HR [facility]; Protocol Last Admin: 05/03/19 09:36 Dose: 200 mls/hr Documented by: Metronidazole (Flagyl 500 Mg/100 Ml) 500 mg in 100 mls @ 100 mls/hr IV Q8HR [facility]; Protocol Last Admin: 05/03/19 05:22 Dose: 100 mls/hr Documented by: Vancomycin HCl 1,250 mg/ (Sodium Chloride) 275 mls @ 166.667 mls/hr IV Q12H [facility] Last Admin: 05/03/19 01:23 Dose: 166.667 mls/hr Documented by: Ibuprofen (Ibuprofen) 600 mg PO Q6H PRN PRN Reason: Pain, Mild (1-3) Last Admin: 05/02/19 12:16 Dose: 600 mg Documented by: Metoclopramide HCl (Reglan) 10 mg IV Q6H PRN PRN Reason: Nausea And Vomiting Ondansetron HCl (Zofran) 4 mg IV Q8H PRN PRN Reason: Nausea And Vomiting Oxycodone/Acetaminophen (Percocet 5/325) 1 tab PO Q6H PRN PRN Reason: Pain, Moderate (4-6) Last Admin: 05/02/19 10:42 Dose: 1 tab Documented by: Sodium Chloride (Sodium Chloride Flush Syringe 10 Ml) 10 ml IV BID [facility] Last Admin: 05/03/19 09:37 Dose: 10 ml Documented by: Sodium Chloride (Sodium Chloride Flush Syringe 10 Ml) 10 ml IV PRN PRN PRN Reason: LINE FLUSH Review of Systems Constitutional: no weight loss, no weight gain Ears, nose, mouth and throat: no ear pain, no nose pain, no sinus pressure, no sinus pain Cardiovascular: no chest pain, no orthopnea, no palpitations, no rapid/irregular heart beat, no edema, no syncope, no lightheadedness, no shortness of breath, no dyspnea on exertion, no high blood pressure, no leg edema, no decreased exercise tolerance Respiratory: no cough, no shortness of breath, no dyspnea on exertion, no congestion, no pain on inspiration Gastrointestinal: no abdominal pain, no nausea, no vomiting, no diarrhea, no constipation, no change in bowel habits Genitourinary Male: no dysuria, no hematuria, no flank pain, no discharge, no urinary frequency, no urinary hesitancy Musculoskeletal: no neck stiffness, no neck pain, no shooting arm pain, no arm numbness/tingling, no low back pain, no shooting leg pain Integumentary: other (right foot cellulitis, right toe wound) Neurological: no head injury, no paralysis, no weakness, no parathesias, no numbness, no tingling, no seizures, no syncope Psychiatric: no anxiety Endocrine: no cold intolerance, no heat intolerance Hematologic/Lymphatic: no easy bruising, no easy bleeding Allergic/Immunologic: no urticaria, no wheezing Physical Examination Vital Signs Temp Pulse Resp BP Pulse Ox 96.7 F L 102 H 18 119/75 95 04/30/19 10:54 04/30/19 10:54 04/30/19 10:54 04/30/19 10:54 04/30/19 10:54 General appearance: no acute distress HEENT: Positive: PERRL, Normocephaly, Mucus Membranes Moist Neck: Positive: neck supple, trachea midline Cardiac: Positive: Reg Rate and Rhythm, S1/S2 Lungs: Positive: Decreased Breath Sounds Neuro: Positive: Grossly Intact Abdomen: Positive: Soft. Negative: Tender Extremities: Present: Other (RLE in dressing) Results 05/03/19 06:56 05/03/19 06:56 CBC 05/03/19 Range/Units 06:56 WBC 2.6 L (4.5-11.0) K/mm3 RBC 3.01 L (3.65-5.03) M/mm3 Hgb 8.4 L (11.8-15.2) gm/dl Hct 24.6 L (35.5-45.6) % Plt Count 345 (140-440) K/mm3 Comprehensive Metabolic Panel 05/03/19 Range/Units 06:56 Sodium 134 L (137-145) mmol/L Potassium 3.7 (3.6-5.0) mmol/L Chloride 96.4 L (98-107) mmol/L Carbon Dioxide 24 (22-30) mmol/L BUN 12 (9-20) mg/dL Creatinine 0.7 L (0.8-1.5) mg/dL Glucose 102 H (75-100) mg/dL Calcium 7.9 L (8.4-10.2) mg/dL - Imaging and Cardiology Echo: report reviewed EKG: report reviewed, image reviewed EKG interpretations - Telemetry EKG Rhythm: Sinus Rhythm - EKG Sinus rhythms and dysrhythmias: sinus rhythm Assessment and Plan Pt with RLE cellulitis and gangrene. He underwent tte which showed EF 45-50%, mild LVH, LA mildly dilated, RV mild to mod dilated, RA mod to severely dilated, mild MR, mild to mod TR. He has no current cardiac complaints and no known prior cardiac issues. No current apparent acute cardiac issues. Cont to monitor on telemetry. No plans for any additional cardiac w/u at this time. The patient has been seen in conjunction with Dr. Dick who agrees with the assessment and plan of care. - Patient Problems (1) Cellulitis and abscess of foot Current Visit: Yes Status: Acute (2) Gangrene of right foot Current Visit: Yes Status: Acute (3) Asymptomatic LV dysfunction Current Visit: Yes Status: Acute (4) Tricuspid regurgitation Current Visit: Yes Status: Chronic
[2019-05-03] MEDS: PERCOCET 5/325 PO PRN (13:21)
--- NOTE | 2019-05-03 14:05 | Progress Note ---
Assessment and Plan - Patient Problems (1) Acute respiratory failure Current Visit: Yes Status: Acute Plan to address problem: Acute respiratory failure at present unsure of exact etiology. Patient has CT scan which showed groundglass appearance. Chest x-ray showed pulmonary edema versus infection. At this time will give short trial of Lasix. Does not appear to be secondary to pneumonia. We'll follow-up chest x-ray after short trial of Lasix 20 mg IV every 12. Pulmonology consult pending. She'll be secondary to underlying sepsis as well. (2) Cellulitis and abscess of foot Current Visit: Yes Status: Acute (3) Gangrene of right foot Current Visit: Yes Status: Acute Plan to address problem: Surgical evaluation of gangrene. (4) Sepsis Current Visit: Yes Status: Acute Plan to address problem: Patient's septic secondary to gangrene and ischemia right foot. Patient currently on cefepime and Vanco. Blood cultures no growth so far. History Interval history: 38-year-old male status post right foot injury found to have gangrene of the fifth digit and lateral expect the right foot. Patient Hospital course complicated by acute hypoxic respiratory failure over p.m. requiring oxygen. Since that's stable after 2 L O2. Hospitalist Physical - Constitutional Vitals: Temp Pulse Resp BP Pulse Ox 98.4 F 76 20 139/83 100 05/03/19 13:10 05/03/19 13:10 05/03/19 13:10 05/03/19 13:10 05/03/19 13:10 General appearance: Present: no acute distress - EENT Eyes: Present: PERRL, EOM intact ENT: hearing intact, clear oral mucosa, dentition normal, no oropharyngeal erythema, no poor dentition, no thrush, no edentulous - Neck Neck: Present: supple, normal ROM. Absent: rigidity, enlarged thyroid, masses or JVD, cervical LAD - Respiratory Respiratory: negative: rhonchi (bilateral rhonchi.) - Cardiovascular Rhythm: regular - Extremities Extremities: no ischemia, pulses intact, pulses symmetrical, No edema, normal temperature, normal color, Full ROM Peripheral Pulses: within normal limits - Abdominal General gastrointestinal: soft, non-tender, non-distended, normal bowel sounds, no hepatomegaly, no splenomegaly, no mass - Integumentary Integumentary: Present: clear, warm, dry - Psychiatric Psychiatric: appropriate mood/affect, intact judgment & insight, memory intact - Neurologic Neurologic: CNII-XII intact Results - Labs CBC & Chem 7: 05/03/19 06:56 05/03/19 06:56 Labs: Laboratory Last Values WBC 2.6 K/mm3 (4.5-11.0) L 05/03/19 06:56 RBC 3.01 M/mm3 (3.65-5.03) L 05/03/19 06:56 Hgb 8.4 gm/dl (11.8-15.2) L 05/03/19 06:56 Hct 24.6 % (35.5-45.6) L 05/03/19 06:56 MCV 82 fl (84-94) L 05/03/19 06:56 MCH 28 pg (28-32) 05/03/19 06:56 MCHC 34 % (32-34) 05/03/19 06:56 RDW 14.8 % (13.2-15.2) 05/03/19 06:56 Plt Count 345 K/mm3 (140-440) 05/03/19 06:56 [place] % (Auto) 5.6 % (0.0-7.3) 05/01/19 07:15 Eos % (Auto) 1.8 % (0.0-4.3) 05/01/19 07:15 [place] # 0.2 K/mm3 (0.0-0.8) 05/01/19 07:15 Eos # 0.1 K/mm3 (0.0-0.4) 05/01/19 07:15 Baso # 0.0 K/mm3 (0.0-0.1) 05/01/19 07:15 Add Manual Diff Complete 05/01/19 07:15 Total Counted 100 05/01/19 07:15 Seg Neutrophils % 79.3 % (40.0-70.0) H 05/01/19 07:15 Seg Neuts % (Manual) 64.0 % (40.0-70.0) 05/01/19 07:15 2.0 % 05/01/19 07:15 14.0 % (13.4-35.0) 05/01/19 07:15 Reactive Lymphs % (Man) 0 % 05/01/19 07:15 20.0 % (0.0-7.3) H 05/01/19 07:15 0 % (0.0-4.3) 05/01/19 07:15 0 % (0.0-1.8) 05/01/19 07:15 0 % 05/01/19 07:15 0 % 05/01/19 07:15 0 % 05/01/19 07:15 0 % 05/01/19 07:15 Nucleated RBC % Not Reportable 05/01/19 07:15 Seg Neutrophils # 2.5 K/mm3 (1.8-7.7) 05/01/19 07:15 Seg Neutrophils # Man 2.2 K/mm3 (1.8-7.7) 05/01/19 07:15 Band Neutrophils # 0.1 K/mm3 05/01/19 07:15 0.5 K/mm3 (1.2-5.4) L 05/01/19 07:15 Abs React Lymphs (Man) 0.0 K/mm3 05/01/19 07:15 0.7 K/mm3 (0.0-0.8) 05/01/19 07:15 0.0 K/mm3 (0.0-0.4) 05/01/19 07:15 0.0 K/mm3 (0.0-0.1) 05/01/19 07:15 0.0 K/mm3 05/01/19 07:15 0.0 K/mm3 05/01/19 07:15 0.0 K/mm3 05/01/19 07:15 Blast Cells # 0.0 K/mm3 05/01/19 07:15 WBC Morphology Not Reportable 05/01/19 07:15 Hypersegmented Neuts Not Reportable 05/01/19 07:15 Hyposegmented Neuts Not Reportable 05/01/19 07:15 Hypogranular Neuts Not Reportable 05/01/19 07:15 Not Reportable 05/01/19 07:15 Not Reportable 05/01/19 07:15 Not Reportable 05/01/19 07:15 Not Reportable 05/01/19 07:15 Not Reportable 05/01/19 07:15 Not Reportable 05/01/19 07:15 Consistent w auto 05/01/19 07:15 Not Reportable 05/01/19 07:15 Plt Clumps, EDTA Not Reportable 05/01/19 07:15 Not Reportable 05/01/19 07:15 Not Reportable 05/01/19 07:15 Not Reportable 05/01/19 07:15 Plt Morphology Comment Not Reportable 05/01/19 07:15 RBC Morphology Not Reportable 05/01/19 07:15 Dimorphic RBCs Not Reportable 05/01/19 07:15 Not Reportable 05/01/19 07:15 1+ 05/01/19 07:15 Not Reportable 05/01/19 07:15 Not Reportable 05/01/19 07:15 Not Reportable 05/01/19 07:15 Not Reportable 05/01/19 07:15 Not Reportable 05/01/19 07:15 Not Reportable 05/01/19 07:15 Not Reportable 05/01/19 07:15 Not Reportable 05/01/19 07:15 Few 05/01/19 07:15 Not Reportable 05/01/19 07:15 Not Reportable 05/01/19 07:15 Not Reportable 05/01/19 07:15 Not Reportable 05/01/19 07:15 Not Reportable 05/01/19 07:15 Not Reportable 05/01/19 07:15 Not Reportable 05/01/19 07:15 Few 05/01/19 07:15 Acanthocytes (Spur) Not Reportable 05/01/19 07:15 Rouleaux Not Reportable 05/01/19 07:15 Not Reportable 05/01/19 07:15 Not Reportable 05/01/19 07:15 Not Reportable 05/01/19 07:15 Not Reportable 05/01/19 07:15 Hem Pathologist Commnt No 05/01/19 07:15 Sodium 134 mmol/L (137-145) L 05/03/19 06:56 Potassium 3.7 mmol/L (3.6-5.0) 05/03/19 06:56 Chloride 96.4 mmol/L (98-107) L 05/03/19 06:56 Carbon Dioxide 24 mmol/L (22-30) 05/03/19 06:56 17 mmol/L 05/03/19 06:56 BUN 12 mg/dL (9-20) 05/03/19 06:56 0.7 mg/dL (0.8-1.5) L 05/03/19 06:56 Estimated GFR > 60 ml/min 05/03/19 06:56 17 % 05/03/19 06:56 Glucose 102 mg/dL (75-100) H 05/03/19 06:56 POC Glucose 92 (70-105) 05/03/19 07:52 5.8 % (4-6) 04/30/19 11:20 Lactic Acid 0.70 mmol/L (0.7-2.0) 04/30/19 16:19 Calcium 7.9 mg/dL (8.4-10.2) L 05/03/19 06:56 0.40 mg/dL (0.1-1.2) 05/01/19 07:15 AST 34 units/L (5-40) 05/01/19 07:15 ALT 22 units/L (7-56) 05/01/19 07:15 568 units/L (35-129) H 05/01/19 07:15 NT-Pro-B Natriuret Pep 297.9 pg/mL (0-450) 05/01/19 15:48 6.6 g/dL (6.3-8.2) 05/01/19 07:15 2.5 g/dL (3.9-5) L 05/01/19 07:15 0.6 % 05/01/19 07:15 Yellow (Yellow) 04/30/19 23:00 Clear (Clear) 04/30/19 23:00 6.0 (5.0-7.0) 04/30/19 23:00 Ur Specific [place] 1.032 (1.003-1.030) H 04/30/19 23:00 100 mg/dl mg/dL (Negative) 04/30/19 23:00 Neg mg/dL (Negative) 04/30/19 23:00 Neg mg/dL (Negative) 04/30/19 23:00 Sm (Negative) 04/30/19 23:00 Neg (Negative) 04/30/19 23:00 Neg (Negative) 04/30/19 23:00 4.0 mg/dL (<2.0) 04/30/19 23:00 Ur Leukocyte Esterase Neg (Negative) 04/30/19 23:00 4.0 /HPF (0.0-6.0) 04/30/19 23:00 10.0 /HPF (0.0-6.0) 04/30/19 23:00 Few /HPF 04/30/19 23:00 Presumptive negative 04/30/19 23:00 Presumptive negative 04/30/19 23:00 Ur Barbiturates Screen Presumptive negative 04/30/19 23:00 Ur Phencyclidine Scrn Presumptive negative 04/30/19 23:00 Ur Amphetamines Screen Presumptive negative 04/30/19 23:00 U Benzodiazepines Scrn Presumptive negative 04/30/19 23:00 Presumptive negative 04/30/19 23:00 U Marijuana (THC) Screen Presumptive positive 04/30/19 23:00 Disclamer 04/30/19 23:00 - Imaging and Cardiology Chest x-ray: image reviewed CT scan - chest: image reviewed Active Medications - Current Medications Current Medications: Generic Name Dose Route Start Last Admin Trade Name Freq PRN Reason Stop Dose Admin Acetaminophen 650 mg 04/30/19 20:03 05/03/19 05:31 Tylenol PO 650 mg Q4H PRN Administration Pain MILD(1-3)/Fever >100.5/TERRY Famotidine 20 mg 04/30/19 22:00 05/03/19 09:36 Pepcid IV 20 mg BID [facility] Administration Furosemide 20 mg 05/03/19 18:00 Lasix IV 0600,1800 [facility] Guaifenesin 200 mg 05/02/19 09:15 05/03/19 01:27 Robitussin PO 200 mg Q4H PRN Administration Cough Heparin Sodium (Porcine) 5,000 unit 05/01/19 16:00 05/03/19 13:22 Heparin SUB-Q 5,000 unit Q8HR [facility] Administration Hydromorphone HCl 0.5 mg 04/30/19 20:03 05/03/19 03:59 Dilaudid IV 0.5 mg Q3H PRN Administration Pain , Severe (7-10) Sodium Chloride 1,000 mls @ 75 mls/hr 04/30/19 21:00 05/01/19 21:58 Nacl 0.9% 1000 Ml IV 75 mls/hr DIRECT [facility] Administration Cefepime HCl 2 gm in 100 mls @ 200 mls/hr 05/01/19 22:00 05/03/19 09:36 Maxipime/Ns 2 Gm/100 Ml IV 200 mls/hr Q12HR [facility] Administration Protocol Metronidazole 500 mg in 100 mls @ 100 mls/hr 05/01/19 18:00 05/03/19 13:21 Flagyl 500 Mg/100 Ml IV 100 mls/hr Q8HR [facility] Administration Protocol Vancomycin HCl 1,250 mg/ 275 mls @ 166.667 mls/hr 05/03/19 01:00 05/03/19 13:12 Sodium Chloride IV 166.667 mls/hr Q12H [facility] Administration Ibuprofen 600 mg 04/30/19 20:03 05/02/19 12:16 Ibuprofen PO 600 mg Q6H PRN Administration Pain, Mild (1-3) Metoclopramide HCl 10 mg 04/30/19 20:03 Reglan IV Q6H PRN Nausea And Vomiting Ondansetron HCl 4 mg 04/30/19 20:03 Zofran IV Q8H PRN Nausea And Vomiting Oxycodone/Acetaminophen 1 tab 04/30/19 20:03 05/03/19 13:21 Percocet 5/325 PO 1 tab Q6H PRN Administration Pain, Moderate (4-6) Sodium Chloride 10 ml 04/30/19 22:00 05/03/19 09:37 Sodium Chloride Flush Syringe 10 Ml IV 10 ml BID [facility] Administration Sodium Chloride 10 ml 04/30/19 20:03 Sodium Chloride Flush Syringe 10 Ml IV PRN PRN LINE FLUSH
[2019-05-03] MEDS: K-DUR PO SCH (18:03)
[2019-05-03] MEDS: LASIX IV SCH (18:03)
[2019-05-04 00:58] LABS: Hematocrit 23.5 % (35.5-45.6); Hemoglobin 7.9 gm/dl (11.8-15.2); Mean Corpuscular HGB Conc 34 % (32-34); Mean Corpuscular Volume 82 fl (84-94); Platelet Count 377 K/mm3 (140-440); Red Blood Count 2.86 M/mm3 (3.65-5.03); Red Cell Distribution Width 14.9 % (13.2-15.2)
[2019-05-04] MEDS: VANCOMYCIN 1,250 MG in NACL 0.9% 250ML 250 ML IV SCH ×3 (01:14→19:02)
[2019-05-04] MEDS: PERCOCET 5/325 PO PRN ×2 (01:22→20:28)
[2019-05-04 01:53] LABS: Basophils % (Manual) 0 % (0.0-1.8); Eosinophils % (Manual) 0 % (0.0-4.3); Total Cells Counted 100
[2019-05-04 01:56] LABS: Hypochromasia 1+; Large Platelets 1+; Ovalocytes 1+
[2019-05-04 01:57] LABS: Anisocytosis 1+; Platelet Estimate Consistent w Auto
[2019-05-04] MEDS: HEPARIN SUB-Q SCH ×3 (05:03→23:00)
[2019-05-04] MEDS: FLAGYL 500 MG/100 ML 500 MG/100 ML BAG IV SCH ×3 (05:03→23:00)
[2019-05-04] MEDS: TYLENOL PO PRN ×2 (05:16→13:15)
[2019-05-04] MEDS: LASIX IV SCH ×2 (06:56→19:13)
[2019-05-04 10:01] LABS: Hematocrit 24.9 % (35.5-45.6); Hemoglobin 8.3 gm/dl (11.8-15.2); Mean Corpuscular HGB Conc 34 % (32-34); Mean Corpuscular Volume 83 fl (84-94); Platelet Count 427 K/mm3 (140-440); Red Blood Count 3.01 M/mm3 (3.65-5.03); Red Cell Distribution Width 14.9 % (13.2-15.2)
[2019-05-04] MEDS: MAXIPIME/NS 2 GM/100 ML 2 GM/100 ML BAG IV SCH ×2 (10:05→23:00)
[2019-05-04 10:16] LABS: BUN/Creatinine Ratio 17; Blood Urea Nitrogen 12 mg/dL (9-20); Calcium 8.5 mg/dL (8.4-10.2); Hemolysis Index 2
--- NOTE | 2019-05-04 10:34 | Consultation ---
History of Present Illness Consult date: 05/04/19 Chief complaint: Gangrenous right 5th toe - History of present illness History of present illness: 38 yo non-diabetic male who recently hit his right foot on some furniture. He has no h/o PVD or IVDA. He has no h/o cardiac disease or arrhythmias. Pt has been evaluated by Vascular surgery and Cardiology and no source of his right 5th toe gangrene has been identified. Past History Past Medical History: No medical history Family history: no significant family history Medications and Allergies Allergies Allergy/AdvReac Type Severity Reaction Status Date / Time No Known Allergies Allergy Verified 02/04/19 11:19 Home Medications Medication Instructions Recorded Confirmed Last Taken Type No Known Home Medications [No 04/30/19 04/30/19 Unknown History Reported Home Medications] Active Meds: Active Medications Acetaminophen (Tylenol) 650 mg PO Q4H PRN PRN Reason: Pain MILD(1-3)/Fever >100.5/TERRY Last Admin: 05/04/19 05:16 Dose: 650 mg Documented by: Famotidine (Pepcid) 20 mg IV BID [facility] Last Admin: 05/03/19 21:18 Dose: 20 mg Documented by: Furosemide (Lasix) 20 mg IV 0600,1800 [facility] Last Admin: 05/04/19 06:56 Dose: 20 mg Documented by: Guaifenesin (Robitussin) 200 mg PO Q4H PRN PRN Reason: Cough Last Admin: 05/03/19 18:05 Dose: 200 mg Documented by: Heparin Sodium (Porcine) (Heparin) 5,000 unit SUB-Q Q8HR [facility] Last Admin: 05/04/19 05:03 Dose: 5,000 unit Documented by: Hydromorphone HCl (Dilaudid) 0.5 mg IV Q3H PRN PRN Reason: Pain , Severe (7-10) Last Admin: 05/03/19 22:07 Dose: 0.5 mg Documented by: Sodium Chloride (Nacl 0.9% 1000 Ml) 1,000 mls @ 75 mls/hr IV DIRECT [facility] Last Admin: 05/01/19 21:58 Dose: 75 mls/hr Documented by: Cefepime HCl (Maxipime/Ns 2 Gm/100 Ml) 2 gm in 100 mls @ 200 mls/hr IV Q12HR [facility]; Protocol Last Admin: 05/03/19 21:19 Dose: 200 mls/hr Documented by: Metronidazole (Flagyl 500 Mg/100 Ml) 500 mg in 100 mls @ 100 mls/hr IV Q8HR [facility]; Protocol Last Admin: 05/04/19 05:03 Dose: 100 mls/hr Documented by: Vancomycin HCl 1,250 mg/ (Sodium Chloride) 275 mls @ 166.667 mls/hr IV Q12H [facility] Last Admin: 05/04/19 01:14 Dose: 166.667 mls/hr Documented by: Ibuprofen (Ibuprofen) 600 mg PO Q6H PRN PRN Reason: Pain, Mild (1-3) Last Admin: 05/02/19 12:16 Dose: 600 mg Documented by: Metoclopramide HCl (Reglan) 10 mg IV Q6H PRN PRN Reason: Nausea And Vomiting Ondansetron HCl (Zofran) 4 mg IV Q8H PRN PRN Reason: Nausea And Vomiting Oxycodone/Acetaminophen (Percocet 5/325) 1 tab PO Q6H PRN PRN Reason: Pain, Moderate (4-6) Last Admin: 05/04/19 01:22 Dose: 1 tab Documented by: Potassium Chloride (K-Dur) 20 meq PO QDAY [facility] Last Admin: 05/03/19 18:03 Dose: 20 meq Documented by: Sodium Chloride (Sodium Chloride Flush Syringe 10 Ml) 10 ml IV BID [facility] Last Admin: 05/03/19 21:18 Dose: 10 ml Documented by: Sodium Chloride (Sodium Chloride Flush Syringe 10 Ml) 10 ml IV PRN PRN PRN Reason: LINE FLUSH Trimethoprim/Sulfamethoxazole (Bactrim Ds) 2 each PO Q8HR [facility] Review of Systems All systems: negative (none) Exam Vital Signs Temp Pulse Resp BP Pulse Ox 96.7 F L 102 H 18 119/75 95 04/30/19 10:54 04/30/19 10:54 04/30/19 10:54 04/30/19 10:54 04/30/19 10:54 - General physical appearance Positive: well developed, well nourished, no distress - Eyes Positive: PERRL, normal occular movement - ENT Positive: normal pinna, normal nares, normal mucosa, no hearing loss, no congestion - Neck Positive: no masses, no bruits, trachea midline, no venous distension - Respiratory Positive: normal expansion, normal respiratory effort, clear to auscultation - Cardiovascular Rhythm: regular Heart Sounds: Present: S1 & S2. Absent: rub, click - Extremities Extremity abnormal: other (Right distal 5th toe with dry gangrene. Right proximal 5th toe and foot with slightly wet gangrene. The gangrenous process also involves the lateral aspect of the right 4th toe.) - Breasts Breasts: deferred - Abdomen Abdomen: Present: soft, bowel sounds normal. Absent: tender, distended Hernia: none - Genitourinary Male Genitourinary: deferred - Neurologic Neurologic: alert and oriented to time, place and person, motor strength and sensation are grossly intact - Musculoskeletal normal gait, normal posture - Psychiatric Psychiatric: appropriate mood/affect, intact judgment & insight Results - Labs 05/04/19 09:30 05/04/19 09:30 Abnormal lab results 05/04/19 05/04/19 05/04/19 Range/Units 00:23 09:30 09:30 WBC 3.2 L 2.8 L (4.5-11.0) K/mm3 RBC 2.86 L 3.01 L (3.65-5.03) M/mm3 Hgb 7.9 L 8.3 L (11.8-15.2) gm/dl Hct 23.5 L 24.9 L (35.5-45.6) % MCV 82 L 83 L (84-94) fl Seg Neuts % (Manual) 80.0 H (40.0-70.0) % Lymphocytes % (Manual) 12.0 L (13.4-35.0) % Nucleated RBC % 1.0 H (0.0-0.9) % Lymphocytes # (Manual) 0.4 L (1.2-5.4) K/mm3 Sodium 135 L (137-145) mmol/L Potassium 3.5 L (3.6-5.0) mmol/L Chloride 94.6 L (98-107) mmol/L Creatinine 0.7 L (0.8-1.5) mg/dL Glucose 101 H (75-100) mg/dL Diabetes panel 05/04/19 Range/Units 09:30 Sodium 135 L (137-145) mmol/L Potassium 3.5 L (3.6-5.0) mmol/L Chloride 94.6 L (98-107) mmol/L Carbon Dioxide 29 (22-30) mmol/L BUN 12 (9-20) mg/dL Creatinine 0.7 L (0.8-1.5) mg/dL Glucose 101 H (75-100) mg/dL Calcium 8.5 (8.4-10.2) mg/dL Calcium panel 05/04/19 Range/Units 09:30 Calcium 8.5 (8.4-10.2) mg/dL Pituitary panel 05/04/19 Range/Units 09:30 Sodium 135 L (137-145) mmol/L Potassium 3.5 L (3.6-5.0) mmol/L Chloride 94.6 L (98-107) mmol/L Carbon Dioxide 29 (22-30) mmol/L BUN 12 (9-20) mg/dL Creatinine 0.7 L (0.8-1.5) mg/dL Glucose 101 H (75-100) mg/dL Calcium 8.5 (8.4-10.2) mg/dL Adrenal panel 05/04/19 Range/Units 09:30 Sodium 135 L (137-145) mmol/L Potassium 3.5 L (3.6-5.0) mmol/L Chloride 94.6 L (98-107) mmol/L Carbon Dioxide 29 (22-30) mmol/L BUN 12 (9-20) mg/dL Creatinine 0.7 L (0.8-1.5) mg/dL Glucose 101 H (75-100) mg/dL Calcium 8.5 (8.4-10.2) mg/dL Assessment and Plan 1) Gangrene of right 5th toe/distal foot and lateral aspect of right 4th toe as well. 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
--- NOTE | 2019-05-04 10:39 | Progress Note ---
Assessment and Plan Cultures: 04/30/2019 blood: no growth 05/01/2019 sputum : contaminated A/P: 38-year-old male with no significant past medical history, admitted with: 1) Right foot cellulitis with gangrene of the 5th toe: ?traumatic in etiology. likely wet gangrene after trauma. Suspect polymicrobial infection including Pseudomonas and anaerobes. Wound culture in progress. Xray with evidence of gas. Surgery has been consulted for possible amputation. Patient not diabetic. Arterial duplex was negative for significant arterial insufficiency. Vascular on board. X-ray of the right foot showed subcutaneous gas throughout the right fifth toe. 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 Will obtain deep wound cultures. Dr. Sharma following. 2) Sepsis secondary to above. 3) CXR with b/l airspace disease: no respiratory symptoms. ?pneumonia. Continue abx. 4) Elevated alk phos: ?bone related. Monitor for now. AST, ALT and bilirubin are normal. 5) Fever: continuing. Noted fever spike 102.2. etiology most likely 5th toe gangrene vs early stage HIV. 6) ?HIV: preliminary screening for HIV reactive, patient currently refusing confirmatory test. ?Stated that he would think about it. Fully educated at bedside regarding preliminary screening and HIV disease process. Recs: Continue Cefepime 2 gm IV every 12 hours, D3 Contiinue Flagyl 500mg every 8 hours, D3 Continue Vancomycin PK consult, D2 Continue Bactrim DS 2 tabs PO TID -Preliminary screen for HIV reactive, patient currently refusing confirmatory test. follow up LDH and PJP DFA appreciate Dr. Sharma obtaining wound cultures [facility] M: [phone] O:[phone] Subjective Date of service: 05/04/19 Principal diagnosis: right fourth and fifth toe gangrene Interval history: Patient seen and examined. Sitting up in bed. Denies right 5th toe pain. Fevers continuing. Objective - Exam Narrative Exam: Constitutional: Alert, cooperative. No acute distress Head, Ears, Nose: Normocephalic, atraumatic. External ears, nose normal Eyes: Conjunctivae/corneas clear. No icterus. No ptosis. Neck: Supple, no meningeal signs Oral: dentition fair, no thrush Cardiovascular: S1, S2 normal. Respiratory: Good air entry, clear to auscultation bilaterally GI: Soft, non-tender; bowel sounds normal. No peritoneal signs Musculoskeletal: R foot with swelling, warmth and tenderness, 5th toe with gangrene and foul smell, 4th toe with swelling. Skin: No rash or abscess Hem/Lymphatic: No palpable cervical or supraclavicular nodes. No lymphangitis Psych: Mood ok. Affect normal Neurological: Awake, alert, oriented. No gross abnormality - Constitutional Vitals: Vital Signs Temp Pulse Resp BP Pulse Ox 98.8 F 64 24 139/81 96 05/04/19 05:32 05/04/19 05:32 05/04/19 05:32 05/04/19 05:32 05/04/19 08:32 Temperature -Last 24 Hours Temperature 98.8 F Temperature 100.1 F Temperature 99.7 F Temperature 98.4 F - Labs CBC & Chem 7: 05/04/19 09:30 05/04/19 09:30 Labs: Abnormal lab results 05/04/19 05/04/19 05/04/19 Range/Units 00:23 09:30 09:30 WBC 3.2 L 2.8 L (4.5-11.0) K/mm3 RBC 2.86 L 3.01 L (3.65-5.03) M/mm3 Hgb 7.9 L 8.3 L (11.8-15.2) gm/dl Hct 23.5 L 24.9 L (35.5-45.6) % MCV 82 L 83 L (84-94) fl Seg Neuts % (Manual) 80.0 H (40.0-70.0) % Lymphocytes % (Manual) 12.0 L (13.4-35.0) % Nucleated RBC % 1.0 H (0.0-0.9) % Lymphocytes # (Manual) 0.4 L (1.2-5.4) K/mm3 Sodium 135 L (137-145) mmol/L Potassium 3.5 L (3.6-5.0) mmol/L Chloride 94.6 L (98-107) mmol/L Creatinine 0.7 L (0.8-1.5) mg/dL Glucose 101 H (75-100) mg/dL
--- NOTE | 2019-05-04 10:57 | Progress Note ---
Assessment and Plan Pt with RLE cellulitis and gangrene. He underwent tte which showed EF 45-50%, mild LVH, LA mildly dilated, RV mild to mod dilated, RA mod to severely dilated, mild MR, mild to mod TR. He has no current cardiac complaints and no known prior cardiac issues. No current apparent acute cardiac issues. Cont to monitor on telemetry. No plans for any additional cardiac w/u at this time. The patient has been seen in conjunction with Dr. Dick who agrees with the assessment and plan of care. - Patient Problems (1) Cellulitis and abscess of foot Current Visit: Yes Status: Acute (2) Gangrene of right foot Current Visit: Yes Status: Acute (3) Asymptomatic LV dysfunction Current Visit: Yes Status: Acute (4) Tricuspid regurgitation Current Visit: Yes Status: Chronic Subjective Date of service: 05/04/19 Principal diagnosis: toe gangrene Interval history: pt resting comfortably in bed, no current cardiac complaints. tele reviewed - in SR. Objective Last Vital Signs Temp 98.8 F 05/04/19 05:32 Pulse 64 05/04/19 05:32 Resp 24 05/04/19 05:32 BP 139/81 05/04/19 05:32 Pulse Ox 96 05/04/19 08:32 - Physical Examination General: No Apparent Distress HEENT: Positive: PERRL, Normocephaly, Mucus Membranes Moist Neck: Positive: neck supple, trachea midline Cardiac: Positive: Reg Rate and Rhythm, S1/S2 Lungs: Positive: Decreased Breath Sounds Neuro: Positive: Grossly Intact Abdomen: Positive: Soft. Negative: Tender Extremities: Present: Other (RLE in dressing) - Labs and Meds CBC 05/04/19 Range/Units 00:23 WBC 3.2 L (4.5-11.0) K/mm3 RBC 2.86 L (3.65-5.03) M/mm3 Hgb 7.9 L (11.8-15.2) gm/dl Hct 23.5 L (35.5-45.6) % Plt Count 377 (140-440) K/mm3 Comprehensive Metabolic Panel 05/04/19 Range/Units 09:30 Sodium 135 L (137-145) mmol/L Potassium 3.5 L (3.6-5.0) mmol/L Chloride 94.6 L (98-107) mmol/L Carbon Dioxide 29 (22-30) mmol/L BUN 12 (9-20) mg/dL Creatinine 0.7 L (0.8-1.5) mg/dL Glucose 101 H (75-100) mg/dL Calcium 8.5 (8.4-10.2) mg/dL - Imaging and Cardiology EKG: report reviewed, image reviewed Echo: report reviewed - EKG Sinus rhythms and dysrhythmias: sinus rhythm
[2019-05-04 11:09] LABS: Band Neutrophils # (Manual) 0.2 K/mm3; Basophils % (Manual) 0 % (0.0-1.8); Eosinophils % (Manual) 0 % (0.0-4.3); Total Cells Counted 100
[2019-05-04 11:10] LABS: Anisocytosis 1+
[2019-05-04 11:11] LABS: Dohle Bodies Few
[2019-05-04] MEDS: BACTRIM DS PO SCH ×3 (11:13→23:00)
[2019-05-04 11:14] LABS: Macrocytosis Few
[2019-05-04 11:15] LABS: Platelet Estimate Consistent w Auto; Spherocytes Rare
--- NOTE | 2019-05-04 11:40 | Progress Note ---
Assessment and Plan Assessment and plan: Sepsis due to right foot cellulitis, gangrene and bilateral pneumonia. present on admission Now on Cefepime and Vancomycin Right foot cellulitis, gangrene On iv Abx- Cefepime and Vancomycin X-ray of the right foot showed subcutaneous gas throughout the right fifth toe. 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 Dr. Sharma following. ID Physician following Gangrene toes right foot On iv Abx Dr. Bingham following fever due to sepsis Leukopenia Follow Bilateral pneumonia Bilat infiltrates on CXR, ground glass appearance on CT ?PJP--check HIV BNP normal Echo EF 45-50%. consulted Pulm Hyponatremia Repeat in am marijuana use Full code status History Interval history: patient is 38-year-old male presents to the ED with complaint of right foot injury. Patient states he hit his right foot on the dresser 1 week ago with progression of discoloration presents to the ER with gangrene of the right fifth toe as well as the lateral aspect of the right fourth toe extending to the distal foot. Dry gangrene distally with wet gangrene proximally. The margins are well demarcated. His right foot is diffusely edematous and warm without exudates. The patient states that he has no history of IV drug abuse. No new issues overnight. Hospitalist Physical - Constitutional Vitals: Temp Pulse Resp BP Pulse Ox 98.8 F 64 24 139/81 96 05/04/19 05:32 05/04/19 05:32 05/04/19 05:32 05/04/19 05:32 05/04/19 08:32 General appearance: Present: no acute distress - EENT Eyes: Present: PERRL, EOM intact ENT: hearing intact, clear oral mucosa, dentition normal - Neck Neck: Present: supple, normal ROM - Respiratory Respiratory effort: normal Respiratory: bilateral: CTA - Cardiovascular Rhythm: regular Heart Sounds: Present: S1 & S2. Absent: gallop, rub - Extremities Extremities: no ischemia, No edema, Full ROM - Abdominal General gastrointestinal: soft, non-tender, non-distended, normal bowel sounds - Integumentary Integumentary: Present: clear, warm, dry - Neurologic Neurologic: CNII-XII intact, moves all extremities Results - Labs CBC & Chem 7: 05/04/19 09:30 05/04/19 09:30 Labs: Laboratory Last Values WBC 2.8 K/mm3 (4.5-11.0) L 05/04/19 09:30 RBC 3.01 M/mm3 (3.65-5.03) L 05/04/19 09:30 Hgb 8.3 gm/dl (11.8-15.2) L 05/04/19 09:30 Hct 24.9 % (35.5-45.6) L 05/04/19 09:30 MCV 83 fl (84-94) L 05/04/19 09:30 MCH 28 pg (28-32) 05/04/19 09:30 MCHC 34 % (32-34) 05/04/19 09:30 RDW 14.9 % (13.2-15.2) 05/04/19 09:30 Plt Count 427 K/mm3 (140-440) 05/04/19 09:30 [place] % (Auto) Chemist Water Purification 05/04/19 00:23 Eos % (Auto) 1.8 % (0.0-4.3) 05/01/19 07:15 [place] # 0.2 K/mm3 (0.0-0.8) 05/01/19 07:15 Eos # 0.1 K/mm3 (0.0-0.4) 05/01/19 07:15 Baso # 0.0 K/mm3 (0.0-0.1) 05/01/19 07:15 Add Manual Diff Complete 05/04/19 09:30 Total Counted 100 05/04/19 09:30 Seg Neutrophils % Chemist Water Purification 05/04/19 00:23 Seg Neuts % (Manual) 83.0 % (40.0-70.0) H 05/04/19 09:30 7.0 % 05/04/19 09:30 4.0 % (13.4-35.0) L 05/04/19 09:30 Reactive Lymphs % (Man) 1.0 % 05/04/19 09:30 5.0 % (0.0-7.3) 05/04/19 09:30 0 % (0.0-4.3) 05/04/19 09:30 0 % (0.0-1.8) 05/04/19 09:30 0 % 05/04/19 09:30 0 % 05/04/19 09:30 0 % 05/04/19 09:30 0 % 05/04/19 09:30 Nucleated RBC % Not Reportable 05/04/19 09:30 Seg Neutrophils # 2.5 K/mm3 (1.8-7.7) 05/01/19 07:15 Seg Neutrophils # Man 2.3 K/mm3 (1.8-7.7) 05/04/19 09:30 Band Neutrophils # 0.2 K/mm3 05/04/19 09:30 0.1 K/mm3 (1.2-5.4) L 05/04/19 09:30 Abs React Lymphs (Man) 0.0 K/mm3 05/04/19 09:30 0.1 K/mm3 (0.0-0.8) 05/04/19 09:30 0.0 K/mm3 (0.0-0.4) 05/04/19 09:30 0.0 K/mm3 (0.0-0.1) 05/04/19 09:30 0.0 K/mm3 05/04/19 09:30 0.0 K/mm3 05/04/19 09:30 0.0 K/mm3 05/04/19 09:30 Blast Cells # 0.0 K/mm3 05/04/19 09:30 WBC Morphology Not Reportable 05/04/19 09:30 Hypersegmented Neuts Not Reportable 05/04/19 09:30 Hyposegmented Neuts Not Reportable 05/04/19 09:30 Hypogranular Neuts Not Reportable 05/04/19 09:30 Not Reportable 05/04/19 09:30 Not Reportable 05/04/19 09:30 Not Reportable 05/04/19 09:30 Few 05/04/19 09:30 Not Reportable 05/04/19 09:30 Not Reportable 05/04/19 09:30 Consistent w auto 05/04/19 09:30 Not Reportable 05/04/19 09:30 Plt Clumps, EDTA Not Reportable 05/04/19 09:30 Not Reportable 05/04/19 09:30 Not Reportable 05/04/19 09:30 Not Reportable 05/04/19 09:30 Plt Morphology Comment Not Reportable 05/04/19 09:30 RBC Morphology Not Reportable 05/04/19 09:30 Dimorphic RBCs Not Reportable 05/04/19 09:30 Rare 05/04/19 09:30 Not Reportable 05/04/19 09:30 Not Reportable 05/04/19 09:30 1+ 05/04/19 09:30 Not Reportable 05/04/19 09:30 Few 05/04/19 09:30 Rare 05/04/19 09:30 Not Reportable 05/04/19 09:30 Not Reportable 05/04/19 09:30 Not Reportable 05/04/19 09:30 Not Reportable 05/04/19 09:30 Not Reportable 05/04/19 09:30 Not Reportable 05/04/19 09:30 Not Reportable 05/04/19 09:30 Not Reportable 05/04/19 09:30 Not Reportable 05/04/19 09:30 Not Reportable 05/04/19 09:30 Not Reportable 05/04/19 09:30 Few 05/04/19 09:30 Acanthocytes (Spur) Not Reportable 05/04/19 09:30 Rouleaux Not Reportable 05/04/19 09:30 Not Reportable 05/04/19 09:30 Not Reportable 05/04/19 09:30 Not Reportable 05/04/19 09:30 Not Reportable 05/04/19 09:30 Hem Pathologist Commnt No 05/04/19 09:30 Sodium 135 mmol/L (137-145) L 05/04/19 09:30 Potassium 3.5 mmol/L (3.6-5.0) L 05/04/19 09:30 Chloride 94.6 mmol/L (98-107) L 05/04/19 09:30 Carbon Dioxide 29 mmol/L (22-30) 05/04/19 09:30 15 mmol/L 05/04/19 09:30 BUN 12 mg/dL (9-20) 05/04/19 09:30 0.7 mg/dL (0.8-1.5) L 05/04/19 09:30 Estimated GFR > 60 ml/min 05/04/19 09:30 17 % 05/04/19 09:30 Glucose 101 mg/dL (75-100) H 05/04/19 09:30 POC Glucose 92 (70-105) 05/03/19 07:52 5.8 % (4-6) 04/30/19 11:20 Lactic Acid 0.70 mmol/L (0.7-2.0) 04/30/19 16:19 Calcium 8.5 mg/dL (8.4-10.2) 05/04/19 09:30 0.40 mg/dL (0.1-1.2) 05/01/19 07:15 AST 34 units/L (5-40) 05/01/19 07:15 ALT 22 units/L (7-56) 05/01/19 07:15 568 units/L (35-129) H 05/01/19 07:15 NT-Pro-B Natriuret Pep 297.9 pg/mL (0-450) 05/01/19 15:48 6.6 g/dL (6.3-8.2) 05/01/19 07:15 2.5 g/dL (3.9-5) L 05/01/19 07:15 0.6 % 05/01/19 07:15 Yellow (Yellow) 04/30/19 23:00 Clear (Clear) 04/30/19 23:00 6.0 (5.0-7.0) 04/30/19 23:00 Ur Specific [place] 1.032 (1.003-1.030) H 04/30/19 23:00 100 mg/dl mg/dL (Negative) 04/30/19 23:00 Neg mg/dL (Negative) 04/30/19 23:00 Neg mg/dL (Negative) 04/30/19 23:00 Sm (Negative) 04/30/19 23:00 Neg (Negative) 04/30/19 23:00 Neg (Negative) 04/30/19 23:00 4.0 mg/dL (<2.0) 04/30/19 23:00 Ur Leukocyte Esterase Neg (Negative) 04/30/19 23:00 4.0 /HPF (0.0-6.0) 04/30/19 23:00 10.0 /HPF (0.0-6.0) 04/30/19 23:00 Few /HPF 04/30/19 23:00 Presumptive negative 04/30/19 23:00 Presumptive negative 04/30/19 23:00 Ur Barbiturates Screen Presumptive negative 04/30/19 23:00 Ur Phencyclidine Scrn Presumptive negative 04/30/19 23:00 Ur Amphetamines Screen Presumptive negative 04/30/19 23:00 U Benzodiazepines Scrn Presumptive negative 04/30/19 23:00 Presumptive negative 04/30/19 23:00 U Marijuana (THC) Screen Presumptive positive 04/30/19 23:00 Disclamer 04/30/19 23:00 HIV 1&2 Antibody Rapid Reactive (Non React) 05/04/19 09:30 Non react (Non React) 05/04/19 09:30 Active Medications - Current Medications Current Medications: Generic Name Dose Route Start Last Admin Trade Name Freq PRN Reason Stop Dose Admin Acetaminophen 650 mg 04/30/19 20:03 05/04/19 05:16 Tylenol PO 650 mg Q4H PRN Administration Pain MILD(1-3)/Fever >100.5/TERRY Famotidine 20 mg 04/30/19 22:00 05/03/19 21:18 Pepcid IV 20 mg BID MARIPOSA Administration Furosemide 20 mg 05/03/19 18:00 05/04/19 06:56 Lasix IV 20 mg 0600,1800 MARIPOSA Administration Guaifenesin 200 mg 05/02/19 09:15 05/03/19 18:05 Robitussin PO 200 mg Q4H PRN Administration Cough Heparin Sodium (Porcine) 5,000 unit 05/01/19 16:00 05/04/19 05:03 Heparin SUB-Q 5,000 unit Q8HR MARIPOSA Administration Hydromorphone HCl 0.5 mg 04/30/19 20:03 05/03/19 22:07 Dilaudid IV 0.5 mg Q3H PRN Administration Pain , Severe (7-10) Sodium Chloride 1,000 mls @ 75 mls/hr 04/30/19 21:00 05/01/19 21:58 Nacl 0.9% 1000 Ml IV 75 mls/hr DIRECT MARIPOSA Administration Cefepime HCl 2 gm in 100 mls @ 200 mls/hr 05/01/19 22:00 05/03/19 21:19 Maxipime/Ns 2 Gm/100 Ml IV 200 mls/hr Q12HR MARIPOSA Administration Protocol Metronidazole 500 mg in 100 mls @ 100 mls/hr 05/01/19 18:00 05/04/19 05:03 Flagyl 500 Mg/100 Ml IV 100 mls/hr Q8HR MARIPOSA Administration Protocol Vancomycin HCl 1,250 mg/ 275 mls @ 166.667 mls/hr 05/03/19 01:00 05/04/19 01:14 Sodium Chloride IV 166.667 mls/hr Q12H MARIPOSA Administration Ibuprofen 600 mg 04/30/19 20:03 05/02/19 12:16 Ibuprofen PO 600 mg Q6H PRN Administration Pain, Mild (1-3) Metoclopramide HCl 10 mg 04/30/19 20:03 Reglan IV Q6H PRN Nausea And Vomiting Ondansetron HCl 4 mg 04/30/19 20:03 Zofran IV Q8H PRN Nausea And Vomiting Oxycodone/Acetaminophen 1 tab 04/30/19 20:03 05/04/19 01:22 Percocet 5/325 PO 1 tab Q6H PRN Administration Pain, Moderate (4-6) Potassium Chloride 20 meq 05/03/19 15:00 05/03/19 18:03 K-Dur PO 20 meq QDAY MARIPOSA Administration Sodium Chloride 10 ml 04/30/19 22:00 05/03/19 21:18 Sodium Chloride Flush Syringe 10 Ml IV 10 ml BID MARIPOSA Administration Sodium Chloride 10 ml 04/30/19 20:03 Sodium Chloride Flush Syringe 10 Ml IV PRN PRN LINE FLUSH Trimethoprim/Sulfamethoxazole 2 each 05/04/19 09:00 Bactrim Ds PO Q8HR MARIPOSA
[2019-05-04] MEDS: DILAUDID IV PRN (13:09)
[2019-05-04] MEDS: PEPCID IV SCH ×2 (13:13→23:00)
[2019-05-04] MEDS: K-DUR PO SCH (13:15)
[2019-05-04] MEDS: SODIUM CHLORIDE FLUSH SYRINGE 10 ML IV SCH ×2 (13:15→23:00)
--- NOTE | 2019-05-04 15:03 | XRay Report ---
AP CHEST: HISTORY: Pulmonary congestion Bilateral interstitial infiltrates of decreased by 10-20% since 05/01/19. No evidence for pleural effusion or pneumothorax. Heart and mediastinal structures remain within normal limits. The bony structures are intact. IMPRESSION: Minimal improvement in the bilateral infiltrates since the exam 3 days ago.
[2019-05-04] MEDS: ROBITUSSIN PO PRN (20:27)
[2019-05-05] MEDS: VANCOMYCIN 1,250 MG in NACL 0.9% 250ML 250 ML IV SCH ×3 (00:55→16:18)
[2019-05-05] MEDS: PERCOCET 5/325 PO PRN ×2 (02:03→16:22)
[2019-05-05] MEDS: FLAGYL 500 MG/100 ML 500 MG/100 ML BAG IV SCH ×3 (06:36→21:38)
[2019-05-05] MEDS: LASIX IV SCH ×2 (06:37→17:04)
[2019-05-05] MEDS: BACTRIM DS PO SCH ×3 (06:37→21:39)
[2019-05-05] MEDS: HEPARIN SUB-Q SCH ×3 (06:40→21:36)
[2019-05-05 08:33] LABS: Hematocrit 25.7 % (35.5-45.6); Hemoglobin 8.5 gm/dl (11.8-15.2); Mean Corpuscular HGB Conc 33 % (32-34); Mean Corpuscular Volume 83 fl (84-94); Platelet Count 478 K/mm3 (140-440); Red Blood Count 3.11 M/mm3 (3.65-5.03); Red Cell Distribution Width 15.1 % (13.2-15.2)
[2019-05-05 08:52] LABS: BUN/Creatinine Ratio 15; Blood Urea Nitrogen 12 mg/dL (9-20); Calcium 8.1 mg/dL (8.4-10.2); Hemolysis Index 0
[2019-05-05 09:58] LABS: Basophils % (Manual) 0 % (0.0-1.8); Total Cells Counted 100
[2019-05-05 10:00] LABS: Anisocytosis 1+; Macrocytosis Few; Poikilocytosis Few
[2019-05-05 10:01] LABS: Platelet Estimate Consistent w Auto
--- NOTE | 2019-05-05 10:17 | Progress Note ---
Assessment and Plan Cultures: 04/30/2019 blood: no growth 05/01/2019 sputum : contaminated A/P: 38-year-old male with no significant past medical history, admitted with: 1) Right foot cellulitis with gangrene of the 5th toe: ?traumatic in etiology. likely wet gangrene after trauma. Suspect polymicrobial infection including Pseudomonas and anaerobes. Wound culture in progress. Xray with evidence of gas. Surgery has been consulted for possible amputation. Patient not diabetic. Arterial duplex was negative for significant arterial insufficiency. Vascular on board. X-ray of the right foot showed subcutaneous gas throughout the right fifth toe. 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 Will obtain deep wound cultures. Dr. Sharma following. 2) Sepsis secondary to above. 3) CXR with b/l airspace disease: no respiratory symptoms. ?pneumonia. repeat CXR shows Minimal improvement in the bilateral infiltrates. 4) Elevated alk phos: ?bone related. Monitor for now. AST, ALT and bilirubin are normal. 5) Fever: continuing. Noted fever spike 102.2. etiology most likely 5th toe gangrene vs PJP. 6) ?HIV: preliminary screening for HIV reactive, patient refusing confirmatory test. Wants to get it done in [place] with family? Fully educated at bedside regarding confirmatory testing, practicing safe sex and ART therapy. 7)Leukopenia: worsening, etiology most likely HIV/AIDS. Continue Bactrim. Continue to monitor. Recs: Continue Cefepime 2 gm IV every 12 hours, D4 Contiinue Flagyl 500mg every 8 hours, D4 Continue Vancomycin PK consult, D3 Continue Bactrim DS 2 tabs PO TID -Preliminary screen for HIV reactive, patient currently refusing confirmatory test. follow up LDH and PJP DFA appreciate Dr. Sharma obtaining wound cultures order cyrpto antigen CBC ordered for tomorrow [facility] M: [phone] O:[phone] Subjective Date of service: 05/05/19 Principal diagnosis: right fourth and fifth toe gangrene Interval history: Patient seen and examined. Sitting up in bed. No pain or generalized weakness reported. Fevers continuing. Objective - Exam Narrative Exam: Constitutional: Alert, cooperative. No acute distress Head, Ears, Nose: Normocephalic, atraumatic. External ears, nose normal Eyes: Conjunctivae/corneas clear. No icterus. No ptosis. Neck: Supple, no meningeal signs Oral: dentition fair, no thrush Cardiovascular: S1, S2 normal. Respiratory: Good air entry, clear to auscultation bilaterally GI: Soft, non-tender; bowel sounds normal. No peritoneal signs Musculoskeletal: R foot with swelling, warmth and tenderness, 5th toe with gangrene and foul smell, 4th toe with swelling. Skin: No rash or abscess Hem/Lymphatic: No palpable cervical or supraclavicular nodes. No lymphangitis Psych: Mood ok. Affect normal Neurological: Awake, alert, oriented. No gross abnormality - Constitutional Vitals: Vital Signs Temp Pulse Resp BP Pulse Ox 98.6 F 66 20 114/64 96 05/05/19 05:04 05/05/19 05:04 05/05/19 05:04 05/05/19 05:04 05/05/19 08:35 Temperature -Last 24 Hours Temperature 98.6 F Temperature 98.6 F Temperature 98.8 F Temperature 98.6 F Temperature 99.0 F Temperature 102.2 F Temperature 102.2 F - Labs CBC & Chem 7: 05/05/19 08:10 05/05/19 08:10 Labs: Abnormal lab results 05/04/19 05/04/19 05/05/19 Range/Units 09:30 09:30 08:10 WBC 2.8 L 2.0 L (4.5-11.0) K/mm3 RBC 3.01 L 3.11 L (3.65-5.03) M/mm3 Hgb 8.3 L 8.5 L (11.8-15.2) gm/dl Hct 24.9 L 25.7 L (35.5-45.6) % MCV 83 L 83 L (84-94) fl MCH 27 L (28-32) pg Plt Count 478 H (140-440) K/mm3 Seg Neuts % (Manual) 83.0 H 87.0 H (40.0-70.0) % Lymphocytes % (Manual) 4.0 L 11.0 L (13.4-35.0) % Seg Neutrophils # Man 1.7 L (1.8-7.7) K/mm3 Lymphocytes # (Manual) 0.1 L 0.2 L (1.2-5.4) K/mm3 Glucose (75-100) mg/dL Calcium (8.4-10.2) mg/dL Lactate Dehydrogenase 486 H (91-180) units/L 05/05/19 Range/Units 08:10 WBC (4.5-11.0) K/mm3 RBC (3.65-5.03) M/mm3 Hgb (11.8-15.2) gm/dl Hct (35.5-45.6) % MCV (84-94) fl MCH (28-32) pg Plt Count (140-440) K/mm3 Seg Neuts % (Manual) (40.0-70.0) % Lymphocytes % (Manual) (13.4-35.0) % Seg Neutrophils # Man (1.8-7.7) K/mm3 Lymphocytes # (Manual) (1.2-5.4) K/mm3 Glucose 115 H (75-100) mg/dL Calcium 8.1 L (8.4-10.2) mg/dL Lactate Dehydrogenase (91-180) units/L
--- NOTE | 2019-05-05 12:04 | Progress Note ---
Assessment and Plan Assessment and plan: Sepsis due to right foot cellulitis, gangrene and bilateral pneumonia. present on admission. Patient continues to have fever and leukopenia. Continue antibiotics per ID Right foot cellulitis, gangrene X-ray of the right foot showed subcutaneous gas throughout the right fifth toe. 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 Dr. Sharma following. Surgery has been consulted for possible amputation. Gangrene toes right foot On iv Abx Dr. Bingham following Bilateral pneumonia Bilat infiltrates on CXR, ground glass appearance on CT Follow-up chest x-ray shows minimal improvement. ?PJP--follow up LDH and PJP DFA Continue Bactrim DS 2 tabs PO TID BNP normal Echo EF 45-50%. consulted Pulm ?HIV: preliminary screening for HIV reactive, patient currently refusing confirmatory test. Follow-up crypto antigen Hyponatremia Repeat in am marijuana use Full code status History Interval history: patient is 38-year-old male presents to the ED with complaint of right foot injury. Patient states he hit his right foot on the dresser 1 week ago with progression of discoloration presents to the ER with gangrene of the right fifth toe as well as the lateral aspect of the right fourth toe extending to the distal foot. Dry gangrene distally with wet gangrene proximally. The margins are well demarcated. His right foot is diffusely edematous and warm without exudates. The patient states that he has no history of IV drug abuse. No new issues overnight. Hospitalist Physical - Constitutional Vitals: Temp Pulse Resp BP Pulse Ox 98.6 F 78 20 114/64 96 05/05/19 05:04 05/05/19 08:00 05/05/19 08:00 05/05/19 05:04 05/05/19 08:35 General appearance: Present: no acute distress - EENT Eyes: Present: PERRL, EOM intact ENT: hearing intact, clear oral mucosa, dentition normal - Neck Neck: Present: supple, normal ROM - Respiratory Respiratory effort: normal Respiratory: bilateral: CTA - Cardiovascular Rhythm: regular Heart Sounds: Present: S1 & S2. Absent: gallop, rub - Extremities Extremities: no ischemia, No edema, Full ROM - Abdominal General gastrointestinal: soft, non-tender, non-distended, normal bowel sounds - Integumentary Integumentary: Present: clear, warm, dry - Neurologic Neurologic: CNII-XII intact, moves all extremities Results - Labs CBC & Chem 7: 05/05/19 08:10 05/05/19 08:10 Labs: Laboratory Last Values WBC 2.0 K/mm3 (4.5-11.0) L 05/05/19 08:10 RBC 3.11 M/mm3 (3.65-5.03) L 05/05/19 08:10 Hgb 8.5 gm/dl (11.8-15.2) L 05/05/19 08:10 Hct 25.7 % (35.5-45.6) L 05/05/19 08:10 MCV 83 fl (84-94) L 05/05/19 08:10 MCH 27 pg (28-32) L 05/05/19 08:10 MCHC 33 % (32-34) 05/05/19 08:10 RDW 15.1 % (13.2-15.2) 05/05/19 08:10 Plt Count 478 K/mm3 (140-440) H 05/05/19 08:10 [place] % (Auto) Rubber Off 05/05/19 08:10 Eos % (Auto) 1.8 % (0.0-4.3) 05/01/19 07:15 [place] # 0.2 K/mm3 (0.0-0.8) 05/01/19 07:15 Eos # 0.1 K/mm3 (0.0-0.4) 05/01/19 07:15 Baso # 0.0 K/mm3 (0.0-0.1) 05/01/19 07:15 Add Manual Diff Complete 05/05/19 08:10 Total Counted 100 05/05/19 08:10 Seg Neutrophils % Rubber Off 05/05/19 08:10 Seg Neuts % (Manual) 87.0 % (40.0-70.0) H 05/05/19 08:10 0 % 05/05/19 08:10 11.0 % (13.4-35.0) L 05/05/19 08:10 Reactive Lymphs % (Man) 0 % 05/05/19 08:10 1.0 % (0.0-7.3) 05/05/19 08:10 1.0 % (0.0-4.3) 05/05/19 08:10 0 % (0.0-1.8) 05/05/19 08:10 0 % 05/05/19 08:10 0 % 05/05/19 08:10 0 % 05/05/19 08:10 0 % 05/05/19 08:10 Nucleated RBC % Not Reportable 05/05/19 08:10 Seg Neutrophils # 2.5 K/mm3 (1.8-7.7) 05/01/19 07:15 Seg Neutrophils # Man 1.7 K/mm3 (1.8-7.7) L 05/05/19 08:10 Band Neutrophils # 0.0 K/mm3 05/05/19 08:10 0.2 K/mm3 (1.2-5.4) L 05/05/19 08:10 Abs React Lymphs (Man) 0.0 K/mm3 05/05/19 08:10 0.0 K/mm3 (0.0-0.8) 05/05/19 08:10 0.0 K/mm3 (0.0-0.4) 05/05/19 08:10 0.0 K/mm3 (0.0-0.1) 05/05/19 08:10 0.0 K/mm3 05/05/19 08:10 0.0 K/mm3 05/05/19 08:10 0.0 K/mm3 05/05/19 08:10 Blast Cells # 0.0 K/mm3 05/05/19 08:10 WBC Morphology Not Reportable 05/05/19 08:10 Hypersegmented Neuts Not Reportable 05/05/19 08:10 Hyposegmented Neuts Not Reportable 05/05/19 08:10 Hypogranular Neuts Not Reportable 05/05/19 08:10 Not Reportable 05/05/19 08:10 Not Reportable 05/05/19 08:10 Not Reportable 05/05/19 08:10 Not Reportable 05/05/19 08:10 Not Reportable 05/05/19 08:10 Not Reportable 05/05/19 08:10 Consistent w auto 05/05/19 08:10 Not Reportable 05/05/19 08:10 Plt Clumps, EDTA Not Reportable 05/05/19 08:10 Not Reportable 05/05/19 08:10 Not Reportable 05/05/19 08:10 Not Reportable 05/05/19 08:10 Plt Morphology Comment Not Reportable 05/05/19 08:10 RBC Morphology Not Reportable 05/05/19 08:10 Dimorphic RBCs Not Reportable 05/05/19 08:10 Not Reportable 05/05/19 08:10 Not Reportable 05/05/19 08:10 Few 05/05/19 08:10 1+ 05/05/19 08:10 Not Reportable 05/05/19 08:10 Few 05/05/19 08:10 Not Reportable 05/05/19 08:10 Not Reportable 05/05/19 08:10 Not Reportable 05/05/19 08:10 Not Reportable 05/05/19 08:10 Not Reportable 05/05/19 08:10 Not Reportable 05/05/19 08:10 Not Reportable 05/05/19 08:10 Not Reportable 05/05/19 08:10 Not Reportable 05/05/19 08:10 Not Reportable 05/05/19 08:10 Not Reportable 05/05/19 08:10 Not Reportable 05/05/19 08:10 Few 05/05/19 08:10 Acanthocytes (Spur) Not Reportable 05/05/19 08:10 Rouleaux Not Reportable 05/05/19 08:10 Not Reportable 05/05/19 08:10 Not Reportable 05/05/19 08:10 Not Reportable 05/05/19 08:10 Not Reportable 05/05/19 08:10 Hem Pathologist Commnt No 05/05/19 08:10 Sodium 137 mmol/L (137-145) 05/05/19 08:10 Potassium 4.2 mmol/L (3.6-5.0) 05/05/19 08:10 Chloride 98.3 mmol/L (98-107) 05/05/19 08:10 Carbon Dioxide 30 mmol/L (22-30) 05/05/19 08:10 13 mmol/L 05/05/19 08:10 BUN 12 mg/dL (9-20) 05/05/19 08:10 0.8 mg/dL (0.8-1.5) 05/05/19 08:10 Estimated GFR > 60 ml/min 05/05/19 08:10 15 % 05/05/19 08:10 Glucose 115 mg/dL (75-100) H 05/05/19 08:10 POC Glucose 92 (70-105) 05/03/19 07:52 5.8 % (4-6) 04/30/19 11:20 Lactic Acid 0.70 mmol/L (0.7-2.0) 04/30/19 16:19 Calcium 8.1 mg/dL (8.4-10.2) L 05/05/19 08:10 0.40 mg/dL (0.1-1.2) 05/01/19 07:15 AST 34 units/L (5-40) 05/01/19 07:15 ALT 22 units/L (7-56) 05/01/19 07:15 568 units/L (35-129) H 05/01/19 07:15 486 units/L (91-180) H 05/04/19 09:30 NT-Pro-B Natriuret Pep 297.9 pg/mL (0-450) 05/01/19 15:48 6.6 g/dL (6.3-8.2) 05/01/19 07:15 2.5 g/dL (3.9-5) L 05/01/19 07:15 0.6 % 05/01/19 07:15 Yellow (Yellow) 04/30/19 23:00 Clear (Clear) 04/30/19 23:00 6.0 (5.0-7.0) 04/30/19 23:00 Ur Specific [place] 1.032 (1.003-1.030) H 04/30/19 23:00 100 mg/dl mg/dL (Negative) 04/30/19 23:00 Neg mg/dL (Negative) 04/30/19 23:00 Neg mg/dL (Negative) 04/30/19 23:00 Sm (Negative) 04/30/19 23:00 Neg (Negative) 04/30/19 23:00 Neg (Negative) 04/30/19 23:00 4.0 mg/dL (<2.0) 04/30/19 23:00 Ur Leukocyte Esterase Neg (Negative) 04/30/19 23:00 4.0 /HPF (0.0-6.0) 04/30/19 23:00 10.0 /HPF (0.0-6.0) 04/30/19 23:00 Few /HPF 04/30/19 23:00 Vancomycin Trough 6.2 ug/mL (5.0-20.0) 05/04/19 12:56 Presumptive negative 04/30/19 23:00 Presumptive negative 04/30/19 23:00 Ur Barbiturates Screen Presumptive negative 04/30/19 23:00 Ur Phencyclidine Scrn Presumptive negative 04/30/19 23:00 Ur Amphetamines Screen Presumptive negative 04/30/19 23:00 U Benzodiazepines Scrn Presumptive negative 04/30/19 23:00 Presumptive negative 04/30/19 23:00 U Marijuana (THC) Screen Presumptive positive 04/30/19 23:00 Disclamer 04/30/19 23:00 HIV 1&2 Antibody Rapid Reactive (Non React) 05/04/19 09:30 Non react (Non React) 05/04/19 09:30 Active Medications - Current Medications Current Medications: Generic Name Dose Route Start Last Admin Trade Name Freq PRN Reason Stop Dose Admin Acetaminophen 650 mg 04/30/19 20:03 05/04/19 13:15 Tylenol PO 650 mg Q4H PRN Administration Pain MILD(1-3)/Fever >100.5/TERRY Famotidine 20 mg 04/30/19 22:00 05/04/19 23:00 Pepcid IV 20 mg BID MARIPOSA Administration Furosemide 20 mg 05/03/19 18:00 05/05/19 06:37 Lasix IV 20 mg 0600,1800 MARIPOSA Administration Guaifenesin 200 mg 05/02/19 09:15 05/04/19 20:27 Robitussin PO 200 mg Q4H PRN Administration Cough Heparin Sodium (Porcine) 5,000 unit 05/01/19 16:00 05/05/19 06:40 Heparin SUB-Q Not Given Q8HR MARIPOSA Hydromorphone HCl 0.5 mg 04/30/19 20:03 05/04/19 13:09 Dilaudid IV 0.5 mg Q3H PRN Administration Pain , Severe (7-10) Sodium Chloride 1,000 mls @ 75 mls/hr 04/30/19 21:00 05/01/19 21:58 Nacl 0.9% 1000 Ml IV 75 mls/hr DIRECT MARIPOSA Administration Cefepime HCl 2 gm in 100 mls @ 200 mls/hr 05/01/19 22:00 05/04/19 23:00 Maxipime/Ns 2 Gm/100 Ml IV 200 mls/hr Q12HR MARIPOSA Administration Protocol Metronidazole 500 mg in 100 mls @ 100 mls/hr 05/01/19 18:00 05/05/19 06:36 Flagyl 500 Mg/100 Ml IV 100 mls/hr Q8HR MARIPOSA Administration Protocol Vancomycin HCl 1,250 mg/ 275 mls @ 166.667 mls/hr 05/04/19 16:00 05/05/19 08:54 Sodium Chloride IV 166.667 mls/hr Q8HR@0000,0800,1600 MARIPOSA Administration Ibuprofen 600 mg 04/30/19 20:03 05/02/19 12:16 Ibuprofen PO 600 mg Q6H PRN Administration Pain, Mild (1-3) Metoclopramide HCl 10 mg 04/30/19 20:03 Reglan IV Q6H PRN Nausea And Vomiting Ondansetron HCl 4 mg 04/30/19 20:03 Zofran IV Q8H PRN Nausea And Vomiting Oxycodone/Acetaminophen 1 tab 04/30/19 20:03 05/05/19 02:03 Percocet 5/325 PO 1 tab Q6H PRN Administration Pain, Moderate (4-6) Potassium Chloride 20 meq 05/03/19 15:00 05/04/19 13:15 K-Dur PO 20 meq QDAY MARIPOSA Administration Sodium Chloride 10 ml 04/30/19 22:00 05/04/19 23:00 Sodium Chloride Flush Syringe 10 Ml IV 10 ml BID MARIPOSA Administration Sodium Chloride 10 ml 04/30/19 20:03 Sodium Chloride Flush Syringe 10 Ml IV PRN PRN LINE FLUSH Trimethoprim/Sulfamethoxazole 2 each 05/04/19 09:00 05/05/19 06:37 Bactrim Ds PO 2 each Q8HR MARIPOSA Administration
--- NOTE | 2019-05-05 12:35 | Anesthesia Consultation ---
Anesthesia Consult and Med Hx Date of service: 05/05/19 - Airway Anesthetic Teeth Evaluation: Good ROM Head & Neck: Adequate Mental/Hyoid Distance: Adequate Mallampati Class: Class II Intubation Access Assessment: Good - Pulmonary Exam CTA: Yes - Cardiac Exam Cardiac Exam: RRR - Pre-Operative Health Status ASA Pre-Surgery Classification: ASA3 Proposed Anesthetic Plan: General - Pulmonary Hx Smoking: No - Additional Comments Anesthesia Medical History Comments: Recently diagnosed HIV positive - ID following , also hx of pneumonia with suspected pneumocystitis pneumonia, for partial foot amputation for gangrene
[2019-05-05] MEDS ORDERED: ZOFRAN IV PRN (12:36)
--- NOTE | 2019-05-05 12:36 | Anesthesia Day of Surgery ---
Anesthesia Day of Surgery - Day of Surgery Patient Examined: Yes Patient H&P Reviewed: Yes Patient is NPO: Yes
[2019-05-05] MEDS ORDERED: HEPARIN SUB-Q NR (12:45)
[2019-05-05] MEDS: LACTATED RINGERS 1,000 ML IV SCH ×2 (13:05→19:04)
[2019-05-05] MEDS ORDERED: SUBLIMAZE ONE (13:13)
[2019-05-05] MEDS ORDERED: DIPRIVAN 10 MG/ML IV ONE (13:13)
[2019-05-05] MEDS ORDERED: VERSED ONE (13:30)
[2019-05-05] MEDS ORDERED: ROBINUL ONE (13:35)
[2019-05-05] MEDS ORDERED: XYLOCAINE MPF 2% ONE (13:35)
[2019-05-05] MEDS ORDERED: NACL 0.9% IR ONE (14:07)
[2019-05-05] MEDS: MAXIPIME/NS 2 GM/100 ML 2 GM/100 ML BAG IV SCH ×2 (14:24→21:35)
[2019-05-05] MEDS: K-DUR PO SCH (14:24)
[2019-05-05] MEDS: SODIUM CHLORIDE FLUSH SYRINGE 10 ML IV SCH ×2 (14:25→21:33)
[2019-05-05] MEDS: PEPCID IV SCH ×2 (14:25→21:39)
[2019-05-05] MEDS: DILAUDID IV PRN ×3 (14:53→21:33)
--- NOTE | 2019-05-05 15:46 | Procedure Note ---
Date of procedure: 05/05/19 Pre-op diagnosis: Wet gangrene of right 5th and partial 4th toe Post-op diagnosis: same Procedure: TMA - right 5th toe Description of procedure: Pt was placed supine on the OR table. General anesthesia was administered. The right foot was prepped and draped. The 5th toe was amputated with curved Graves scissors at the MTP joint. Deep cultures were obtained. The metatarsal head was amputated with a bone saw. Additional necrotic skin and SQ tissue of the distal right foot and lateral 4th toe were excised with scissors. Hemostasis of a small amount of bleeding was obtained with the Bovie. The wound was irrigated. The wound was packed open with a dilute Betadine moistened Kerlix roll followed by a Kerlix wrap and Coban. Pt tolerated the procedure well and was taken to PACU in stable condition. Anesthesia: other (LMA) Surgeon: ONIEL SALAS Estimated blood loss: minimal Pathology: list (1) Right 5th toe and metatarsal head 2) C&S - deep) Specimen disposition: to lab Condition: stable Disposition: PACU
[2019-05-06] MEDS: VANCOMYCIN 1,250 MG in NACL 0.9% 250ML 250 ML IV SCH ×2 (00:20→08:36)
[2019-05-06] MEDS: PERCOCET 5/325 PO PRN ×4 (00:24→14:33)
[2019-05-06 00:58] LABS: Hematocrit 24.1 % (35.5-45.6); Hemoglobin 8.2 gm/dl (11.8-15.2); Mean Corpuscular HGB Conc 34 % (32-34); Mean Corpuscular Volume 83 fl (84-94); Platelet Count 483 K/mm3 (140-440)
[2019-05-06 04:26] LABS: Basophils % (Manual) 0 % (0.0-1.8); Total Cells Counted 100
[2019-05-06 04:28] LABS: Anisocytosis 1+; Dohle Bodies 1+; Large Platelets 1+; Ovalocytes 1+; Platelet Estimate Appears Increased
[2019-05-06] MEDS: FLAGYL 500 MG/100 ML 500 MG/100 ML BAG IV SCH ×3 (06:16→21:29)
[2019-05-06] MEDS: HEPARIN SUB-Q SCH ×3 (06:17→21:31)
[2019-05-06] MEDS: LASIX IV SCH ×2 (06:17→18:39)
[2019-05-06] MEDS: BACTRIM DS PO SCH ×3 (06:17→21:29)
[2019-05-06] MEDS: DILAUDID IV PRN ×4 (08:35→21:32)
--- NOTE | 2019-05-06 09:25 | Progress Note ---
Assessment and Plan Cultures: 04/30/2019 blood: no growth 05/01/2019 sputum : contaminated 05/05/2019 Right toe surgical: GNR A/P: 38-year-old male with no significant past medical history, admitted with: 1) Right foot cellulitis with gangrene of the 5th toe: ?traumatic in etiology. likely wet gangrene after trauma. Suspect polymicrobial infection including Pseudomonas and anaerobes. Wound culture in progress. Xray with evidence of gas. Surgery has been consulted for possible amputation. Patient not diabetic. Arterial duplex was negative for significant arterial insufficiency. Vascular on board. X-ray of the right foot showed subcutaneous gas throughout the right fifth toe. s/p tma right fifth toe and metatarsal head. Necrotic skin and SQ tissue of the distal right foot and lateral 4th toe were excised 05/06/19. Follow-up deep wound cultures. 2) Sepsis secondary to above. LDH 436. 3) CXR with b/l airspace disease: no respiratory symptoms. ?pneumonia. repeat CXR shows Minimal improvement in the bilateral infiltrates. 4) Elevated alk phos: ?bone related. Monitor for now. AST, ALT and bilirubin are normal. 5) Fever: Improving. no fever >24 hours etiology most likely 5th toe gangrene vs PJP. 6) ?HIV: preliminary screening for HIV reactive, patient refusing confirmatory test. Wants to get it done in [place] with family? Fully educated at bedside regarding confirmatory testing, practicing safe sex and ART therapy. 7)Leukopenia: worsening, etiology most likely HIV/AIDS. Continue Bactrim. Continue to monitor. Recs: Continue Cefepime 2 gm IV every 12 hours, D5 Continue Flagyl 500mg every 8 hours, D5 Discontinue Vancomycin Continue Bactrim DS 2 tabs PO TID -Preliminary screen for HIV reactive, patient refusing confirmatory test. follow-up PJP DFA, Crypto antigen follow-up deep wound cultures AFB blood cultures ordered [facility] M: [id number] O:[phone] Subjective Date of service: 05/06/19 Principal diagnosis: right fourth and fifth toe gangrene Interval history: Patient seen and examined. Sitting up in bed. No pain or generalized weakness reported. No fevers. Objective - Exam Narrative Exam: Constitutional: Alert, cooperative. No acute distress Head, Ears, Nose: Normocephalic, atraumatic. External ears, nose normal Eyes: Conjunctivae/corneas clear. No icterus. No ptosis. Neck: Supple, no meningeal signs Oral: dentition fair, no thrush Cardiovascular: S1, S2 normal. Respiratory: Good air entry, clear to auscultation bilaterally GI: Soft, non-tender; bowel sounds normal. No peritoneal signs Musculoskeletal: s/p tma right fifth toe and metatarsal head. + dressing C/D/I Skin: No rash or abscess Hem/Lymphatic: No palpable cervical or supraclavicular nodes. No lymphangitis Psych: Mood ok. Affect normal Neurological: Awake, alert, oriented. No gross abnormality - Constitutional Vitals: Vital Signs Temp Pulse Resp BP Pulse Ox 98.0 F 65 18 135/83 96 05/06/19 05:48 05/06/19 05:48 05/06/19 05:48 05/06/19 05:48 05/06/19 09:19 Temperature -Last 24 Hours Temperature 98.0 F Temperature 99.3 F Temperature 97.8 F Temperature 98.1 F Temperature 99.8 F - Labs CBC & Chem 7: 05/06/19 00:11 05/05/19 08:10 Labs: Abnormal lab results 05/05/19 05/06/19 Range/Units 08:10 00:11 WBC 1.9 L* (4.5-11.0) K/mm3 RBC 2.90 L (3.65-5.03) M/mm3 Hgb 8.2 L (11.8-15.2) gm/dl Hct 24.1 L (35.5-45.6) % MCV 83 L (84-94) fl Plt Count 483 H (140-440) K/mm3 Seg Neuts % (Manual) 87.0 H 74.0 H (40.0-70.0) % Lymphocytes % (Manual) 11.0 L 11.0 L (13.4-35.0) % Monocytes % (Manual) 11.0 H (0.0-7.3) % Seg Neutrophils # Man 1.7 L 1.4 L (1.8-7.7) K/mm3 Lymphocytes # (Manual) 0.2 L 0.2 L (1.2-5.4) K/mm3
[2019-05-06] MEDS: K-DUR PO SCH (10:03)
[2019-05-06] MEDS: PEPCID IV SCH ×2 (10:03→21:31)
[2019-05-06] MEDS: MAXIPIME/NS 2 GM/100 ML 2 GM/100 ML BAG IV SCH ×2 (10:03→21:30)
[2019-05-06] MEDS: SODIUM CHLORIDE FLUSH SYRINGE 10 ML IV SCH ×2 (10:11→21:31)
--- NOTE | 2019-05-06 10:49 | Progress Note ---
Assessment and Plan Currently stable cardiac status. S/p right foot surgery yesterday. Nothing further to add from cardiac perspective at this time. Will sign off. Recommend pt follow up in our office with Dr. Dick within 1-2 weeks of hospital discharge ([phone]). The patient has been seen in conjunction with Dr. Dick who agrees with the assessment and plan of care. - Patient Problems (1) Cellulitis and abscess of foot Current Visit: Yes Status: Acute (2) Gangrene of right foot Current Visit: Yes Status: Acute (3) Asymptomatic LV dysfunction Current Visit: Yes Status: Acute (4) Tricuspid regurgitation Current Visit: Yes Status: Chronic Subjective Date of service: 05/06/19 Principal diagnosis: right fourth and fifth toe gangrene Interval history: pt resting comfortably in bed, no current cardiac complaints. tele reviewed - in SR. s/p right foot surgery yesterday. Objective Last Vital Signs Temp 98.0 F 05/06/19 05:48 Pulse 65 05/06/19 05:48 Resp 18 05/06/19 05:48 BP 135/83 05/06/19 05:48 Pulse Ox 96 05/06/19 09:19 - Physical Examination General: No Apparent Distress HEENT: Positive: PERRL, Normocephaly, Mucus Membranes Moist Neck: Positive: neck supple, trachea midline Cardiac: Positive: Reg Rate and Rhythm, S1/S2 Lungs: Positive: clear to auscultation Neuro: Positive: Grossly Intact Abdomen: Positive: Soft. Negative: Tender Extremities: Present: Other (RLE in dressing) - Labs and Meds CBC 05/06/19 Range/Units 00:11 WBC 1.9 L* (4.5-11.0) K/mm3 RBC 2.90 L (3.65-5.03) M/mm3 Hgb 8.2 L (11.8-15.2) gm/dl Hct 24.1 L (35.5-45.6) % Plt Count 483 H (140-440) K/mm3 - Imaging and Cardiology EKG: report reviewed, image reviewed Echo: report reviewed - Telemetry EKG Rhythm: Sinus Rhythm - EKG Sinus rhythms and dysrhythmias: sinus rhythm
--- NOTE | 2019-05-06 11:03 | Progress Note ---
Assessment and Plan Assessment and plan: Sepsis due to right foot cellulitis, gangrene and bilateral pneumonia. present on admission. Patient continues to have fever and leukopenia. Continue antibiotics per ID Right foot cellulitis, gangrene X-ray of the right foot showed subcutaneous gas throughout the right fifth toe. 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 Dr. Sharma following. Surgery has been consulted for possible amputation. Wet gangrene of right 5th and partial 4th toe s/p TMA - right 5th toe necrotic skin and SQ tissue of the distal right foot and lateral 4th toe were excised Bilateral pneumonia Bilat infiltrates on CXR, ground glass appearance on CT Follow-up chest x-ray shows minimal improvement. ?PJP--follow up LDH and PJP DFA Continue Bactrim DS 2 tabs PO TID BNP normal Echo EF 45-50%. consulted Pulm ?HIV: preliminary screening for HIV reactive, patient currently refusing confirmatory test. Follow-up crypto antigen Hyponatremia Repeat in am marijuana use Full code status History Interval history: patient is 38-year-old male presents to the ED with complaint of right foot injury. Patient states he hit his right foot on the dresser 1 week ago with progression of discoloration presents to the ER with gangrene of the right fifth toe as well as the lateral aspect of the right fourth toe extending to the distal foot. Dry gangrene distally with wet gangrene proximally. The margins are well demarcated. His right foot is diffusely edematous and warm without exudates. The patient states that he has no history of IV drug abuse. No new issues overnight. Hospitalist Physical - Constitutional Vitals: Temp Pulse Resp BP Pulse Ox 98.0 F 65 18 135/83 96 05/06/19 05:48 05/06/19 05:48 05/06/19 05:48 05/06/19 05:48 05/06/19 09:19 General appearance: Present: no acute distress - EENT Eyes: Present: PERRL, EOM intact ENT: hearing intact, clear oral mucosa, dentition normal - Neck Neck: Present: supple, normal ROM - Respiratory Respiratory effort: normal Respiratory: bilateral: CTA - Cardiovascular Rhythm: regular Heart Sounds: Present: S1 & S2. Absent: gallop, rub - Extremities Extremities: Full ROM, abnormal (foot dressing clean dry and intact) - Abdominal General gastrointestinal: soft, non-tender, non-distended, normal bowel sounds - Integumentary Integumentary: Present: clear, warm, dry - Neurologic Neurologic: CNII-XII intact, moves all extremities Results - Labs CBC & Chem 7: 05/06/19 00:11 05/05/19 08:10 Labs: Laboratory Last Values WBC 1.9 K/mm3 (4.5-11.0) L* 05/06/19 00:11 RBC 2.90 M/mm3 (3.65-5.03) L 05/06/19 00:11 Hgb 8.2 gm/dl (11.8-15.2) L 05/06/19 00:11 Hct 24.1 % (35.5-45.6) L 05/06/19 00:11 MCV 83 fl (84-94) L 05/06/19 00:11 MCH 28 pg (28-32) 05/06/19 00:11 MCHC 34 % (32-34) 05/06/19 00:11 RDW 15.0 % (13.2-15.2) 05/06/19 00:11 Plt Count 483 K/mm3 (140-440) H 05/06/19 00:11 [place] % (Auto) [employer] 05/06/19 00:11 Eos % (Auto) 1.8 % (0.0-4.3) 05/01/19 07:15 [place] # 0.2 K/mm3 (0.0-0.8) 05/01/19 07:15 Eos # 0.1 K/mm3 (0.0-0.4) 05/01/19 07:15 Baso # 0.0 K/mm3 (0.0-0.1) 05/01/19 07:15 Add Manual Diff Complete 05/06/19 00:11 Total Counted 100 05/06/19 00:11 Seg Neutrophils % [employer] 05/06/19 00:11 Seg Neuts % (Manual) 74.0 % (40.0-70.0) H 05/06/19 00:11 2.0 % 05/06/19 00:11 11.0 % (13.4-35.0) L 05/06/19 00:11 Reactive Lymphs % (Man) 0 % 05/06/19 00:11 11.0 % (0.0-7.3) H 05/06/19 00:11 1.0 % (0.0-4.3) 05/06/19 00:11 0 % (0.0-1.8) 05/06/19 00:11 1.0 % 05/06/19 00:11 0 % 05/06/19 00:11 0 % 05/06/19 00:11 0 % 05/06/19 00:11 Nucleated RBC % Not Reportable 05/06/19 00:11 Seg Neutrophils # 2.5 K/mm3 (1.8-7.7) 05/01/19 07:15 Seg Neutrophils # Man 1.4 K/mm3 (1.8-7.7) L 05/06/19 00:11 Band Neutrophils # 0.0 K/mm3 05/06/19 00:11 0.2 K/mm3 (1.2-5.4) L 05/06/19 00:11 Abs React Lymphs (Man) 0.0 K/mm3 05/06/19 00:11 0.2 K/mm3 (0.0-0.8) 05/06/19 00:11 0.0 K/mm3 (0.0-0.4) 05/06/19 00:11 0.0 K/mm3 (0.0-0.1) 05/06/19 00:11 0.0 K/mm3 05/06/19 00:11 0.0 K/mm3 05/06/19 00:11 0.0 K/mm3 05/06/19 00:11 Blast Cells # 0.0 K/mm3 05/06/19 00:11 WBC Morphology Not Reportable 05/06/19 00:11 Hypersegmented Neuts Not Reportable 05/06/19 00:11 Hyposegmented Neuts Not Reportable 05/06/19 00:11 Hypogranular Neuts Not Reportable 05/06/19 00:11 Not Reportable 05/06/19 00:11 Not Reportable 05/06/19 00:11 Not Reportable 05/06/19 00:11 1+ 05/06/19 00:11 Not Reportable 05/06/19 00:11 Not Reportable 05/06/19 00:11 Appears increased 05/06/19 00:11 Not Reportable 05/06/19 00:11 Plt Clumps, EDTA Not Reportable 05/06/19 00:11 1+ 05/06/19 00:11 Not Reportable 05/06/19 00:11 Not Reportable 05/06/19 00:11 Plt Morphology Comment Not Reportable 05/06/19 00:11 RBC Morphology Not Reportable 05/06/19 00:11 Dimorphic RBCs Not Reportable 05/06/19 00:11 Not Reportable 05/06/19 00:11 Not Reportable 05/06/19 00:11 Not Reportable 05/06/19 00:11 1+ 05/06/19 00:11 Not Reportable 05/06/19 00:11 Not Reportable 05/06/19 00:11 Not Reportable 05/06/19 00:11 Not Reportable 05/06/19 00:11 Not Reportable 05/06/19 00:11 Not Reportable 05/06/19 00:11 Not Reportable 05/06/19 00:11 1+ 05/06/19 00:11 Not Reportable 05/06/19 00:11 Not Reportable 05/06/19 00:11 Not Reportable 05/06/19 00:11 Not Reportable 05/06/19 00:11 Not Reportable 05/06/19 00:11 Not Reportable 05/06/19 00:11 1+ 05/06/19 00:11 Acanthocytes (Spur) Not Reportable 05/06/19 00:11 Rouleaux Not Reportable 05/06/19 00:11 Not Reportable 05/06/19 00:11 Not Reportable 05/06/19 00:11 Not Reportable 05/06/19 00:11 Not Reportable 05/06/19 00:11 Hem Pathologist Commnt No 05/06/19 00:11 Sodium 137 mmol/L (137-145) 05/05/19 08:10 Potassium 4.2 mmol/L (3.6-5.0) 05/05/19 08:10 Chloride 98.3 mmol/L (98-107) 05/05/19 08:10 Carbon Dioxide 30 mmol/L (22-30) 05/05/19 08:10 13 mmol/L 05/05/19 08:10 BUN 12 mg/dL (9-20) 05/05/19 08:10 0.8 mg/dL (0.8-1.5) 05/05/19 08:10 Estimated GFR > 60 ml/min 05/05/19 08:10 15 % 05/05/19 08:10 Glucose 115 mg/dL (75-100) H 05/05/19 08:10 POC Glucose 92 (70-105) 05/03/19 07:52 5.8 % (4-6) 04/30/19 11:20 Lactic Acid 0.70 mmol/L (0.7-2.0) 04/30/19 16:19 Calcium 8.1 mg/dL (8.4-10.2) L 05/05/19 08:10 0.40 mg/dL (0.1-1.2) 05/01/19 07:15 AST 34 units/L (5-40) 05/01/19 07:15 ALT 22 units/L (7-56) 05/01/19 07:15 568 units/L (35-129) H 05/01/19 07:15 486 units/L (91-180) H 05/04/19 09:30 NT-Pro-B Natriuret Pep 297.9 pg/mL (0-450) 05/01/19 15:48 6.6 g/dL (6.3-8.2) 05/01/19 07:15 2.5 g/dL (3.9-5) L 05/01/19 07:15 0.6 % 05/01/19 07:15 Yellow (Yellow) 04/30/19 23:00 Clear (Clear) 04/30/19 23:00 6.0 (5.0-7.0) 04/30/19 23:00 Ur Specific [place] 1.032 (1.003-1.030) H 04/30/19 23:00 100 mg/dl mg/dL (Negative) 04/30/19 23:00 Neg mg/dL (Negative) 04/30/19 23:00 Neg mg/dL (Negative) 04/30/19 23:00 Sm (Negative) 04/30/19 23:00 Neg (Negative) 04/30/19 23:00 Neg (Negative) 04/30/19 23:00 4.0 mg/dL (<2.0) 04/30/19 23:00 Ur Leukocyte Esterase Neg (Negative) 04/30/19 23:00 4.0 /HPF (0.0-6.0) 04/30/19 23:00 10.0 /HPF (0.0-6.0) 04/30/19 23:00 Few /HPF 04/30/19 23:00 Vancomycin Trough 11.6 ug/mL (5.0-20.0) 05/06/19 00:11 Presumptive negative 04/30/19 23:00 Presumptive negative 04/30/19 23:00 Ur Barbiturates Screen Presumptive negative 04/30/19 23:00 Ur Phencyclidine Scrn Presumptive negative 04/30/19 23:00 Ur Amphetamines Screen Presumptive negative 04/30/19 23:00 U Benzodiazepines Scrn Presumptive negative 04/30/19 23:00 Presumptive negative 04/30/19 23:00 U Marijuana (THC) Screen Presumptive positive 04/30/19 23:00 Disclamer 04/30/19 23:00 HIV 1&2 Antibody Rapid Reactive (Non React) 05/04/19 09:30 Non react (Non React) 05/04/19 09:30 Active Medications - Current Medications Current Medications: Generic Name Dose Route Start Last Admin Trade Name Freq PRN Reason Stop Dose Admin Acetaminophen 650 mg 04/30/19 20:03 05/04/19 13:15 Tylenol PO 650 mg Q4H PRN Administration Pain MILD(1-3)/Fever >100.5/TERRY Famotidine 20 mg 04/30/19 22:00 05/06/19 10:03 Pepcid IV 20 mg BID MARIPOSA Administration Furosemide 20 mg 05/03/19 18:00 05/06/19 06:17 Lasix IV 20 mg 0600,1800 MARIPOSA Administration Guaifenesin 200 mg 05/02/19 09:15 05/04/19 20:27 Robitussin PO 200 mg Q4H PRN Administration Cough Heparin Sodium (Porcine) 5,000 unit 05/01/19 16:00 05/06/19 06:17 Heparin SUB-Q 5,000 unit Q8HR MARIPOSA Administration Hydromorphone HCl 0.5 mg 04/30/19 20:03 05/06/19 08:35 Dilaudid IV 0.5 mg Q3H PRN Administration Pain , Severe (7-10) Sodium Chloride 1,000 mls @ 75 mls/hr 04/30/19 21:00 05/01/19 21:58 Nacl 0.9% 1000 Ml IV 75 mls/hr DIRECT MARIPOSA Administration Cefepime HCl 2 gm in 100 mls @ 200 mls/hr 05/01/19 22:00 05/06/19 10:03 Maxipime/Ns 2 Gm/100 Ml IV 200 mls/hr Q12HR MARIPOSA Administration Protocol Metronidazole 500 mg in 100 mls @ 100 mls/hr 05/01/19 18:00 05/06/19 06:16 Flagyl 500 Mg/100 Ml IV 100 mls/hr Q8HR MARIPOSA Administration Protocol Vancomycin HCl 1,250 mg/ 275 mls @ 166.667 mls/hr 05/04/19 16:00 05/06/19 08:36 Sodium Chloride IV 166.667 mls/hr Q8HR@0000,0800,1600 MARIPOSA Administration Lactated Ringer's 1,000 mls @ 75 mls/hr 05/05/19 13:00 05/05/19 19:04 Lactated Ringers IV 75 mls/hr DIRECT MARIPOSA Administration Ibuprofen 600 mg 04/30/19 20:03 05/02/19 12:16 Ibuprofen PO 600 mg Q6H PRN Administration Pain, Mild (1-3) Metoclopramide HCl 10 mg 04/30/19 20:03 Reglan IV Q6H PRN Nausea And Vomiting Ondansetron HCl 4 mg 04/30/19 20:03 Zofran IV Q8H PRN Nausea And Vomiting Oxycodone/Acetaminophen 1 tab 05/06/19 08:39 05/06/19 10:18 Percocet 5/325 PO 1 tab Q4H PRN Administration Pain, Moderate (4-6) Potassium Chloride 20 meq 05/03/19 15:00 05/06/19 10:03 K-Dur PO 20 meq QDAY MARIPOSA Administration Sodium Chloride 10 ml 04/30/19 22:00 05/06/19 10:11 Sodium Chloride Flush Syringe 10 Ml IV 10 ml BID MARIPOSA Administration Sodium Chloride 10 ml 04/30/19 20:03 Sodium Chloride Flush Syringe 10 Ml IV PRN PRN LINE FLUSH Trimethoprim/Sulfamethoxazole 2 each 05/04/19 09:05/06/19 06:17 Bactrim Ds PO 2 each Q8HR MARIPOSA Administration
[2019-05-06] MEDS: LACTATED RINGERS 1,000 ML IV SCH (17:25)
[2019-05-06] MEDS: NACL 0.9% 1000 ML 1,000 ML IV SCH (17:27)
[2019-05-07] MEDS: LASIX IV SCH (05:01)
[2019-05-07] MEDS: FLAGYL 500 MG/100 ML 500 MG/100 ML BAG IV SCH (05:01)
[2019-05-07] MEDS: HEPARIN SUB-Q SCH ×3 (05:02→22:34)
[2019-05-07] MEDS: BACTRIM DS PO SCH ×3 (05:02→22:18)
[2019-05-07 08:00] LABS: Hematocrit 23.3 % (35.5-45.6); Hemoglobin 7.8 gm/dl (11.8-15.2); Mean Corpuscular HGB Conc 33 % (32-34); Mean Corpuscular Volume 82 fl (84-94); Platelet Count 567 K/mm3 (140-440); Red Blood Count 2.83 M/mm3 (3.65-5.03); Red Cell Distribution Width 15.2 % (13.2-15.2)
[2019-05-07 08:24] LABS: BUN/Creatinine Ratio 14; Blood Urea Nitrogen 11 mg/dL (9-20); Calcium 7.9 mg/dL (8.4-10.2); Hemolysis Index 2
[2019-05-07 09:09] LABS: Anisocytosis 1+; Band Neutrophils # (Manual) 0.1 K/mm3; Total Cells Counted 100
[2019-05-07 09:10] LABS: Ovalocytes Few; Platelet Estimate Consistent w Auto
--- NOTE | 2019-05-07 09:35 | Progress Note ---
Assessment and Plan Cultures: 04/30/2019 blood: no growth 05/01/2019 sputum : contaminated 05/05/2019 Right toe surgical: Proteus, GNR, susceptible to Cefepime/Bactrim A/P: 38-year-old male with no significant past medical history, admitted with: 1) Right foot cellulitis with gangrene of the 5th toe: ?traumatic in etiology. likely wet gangrene after trauma. Suspect polymicrobial infection including Pseudomonas and anaerobes. Wound culture grew Proteus, GNR, susceptible to Cefepime/Bactrim. Xray with evidence of gas. Patient not diabetic. Arterial duplex was negative for significant arterial insufficiency. Vascular on board. X-ray of the right foot showed subcutaneous gas throughout the right fifth toe. s/p tma right fifth toe and metatarsal head. Necrotic skin and SQ tissue of the distal right foot and lateral 4th toe were excised 05/06/19. Follow-up deep wound pathology cultures. 2) Sepsis secondary to above. resolved. LDH 436. 3) CXR with b/l airspace disease: no respiratory symptoms. ?pneumonia. repeat CXR shows Minimal improvement in the bilateral infiltrates. 4) Elevated alk phos: ?bone related. Monitor for now. AST, ALT and bilirubin are normal. 5) Fever: Improving. no fever >48 hours etiology most likely 5th toe gangrene vs PJP. 6) ?HIV: preliminary screening for HIV reactive, patient refusing confirmatory test. Agreed to further testing. Will order CD4, VL and genotype. 7)Leukopenia: worsening, etiology most likely HIV/AIDS or opportunistic infection affecting bone marrow? cryptococcossis, MAC., presumed PJP. IF neutropenia worsening will ask for HEM consult and bone marrow aspiration for fungal, AFB stain and biopsy. Recs: discontinue Cefepime 2 gm IV every 12 hours, D5 discontinue Flagyl 500mg every 8 hours, D5 Continue Bactrim DS 2 tabs PO TID -Preliminary screen for HIV reactive follow-up PJP DFA, Crypto antigen follow-up deep wound cultures follow-up AFB blood cultures , CD4, VL and genotype continue wound care, follow-up wound care clinic Anticipate discharge on Bactrim DS 2 tabs PO TID to cover PJP and toe infection for 21 days follow-up in ID clinic in 2-3 weeks , will review toe pathology and HIV testing Dr. Smith will be technical applications scientist this weekend [phone], please call for questions, Dr. Smith will be rounding on this patient on Friday. Stacia Conley NP [facility] M: [phone] O:[phone] Subjective Date of service: 05/07/19 Principal diagnosis: right fourth and fifth toe gangrene Interval history: Patient seen and examined. Sitting up in bed. No pain or generalized weakness reported. No fevers. Discussion regarding importance of follow with ID clinic to review test result, verbalized understanding. Objective - Exam Narrative Exam: Constitutional: Alert, cooperative. No acute distress Head, Ears, Nose: Normocephalic, atraumatic. External ears, nose normal Eyes: Conjunctivae/corneas clear. No icterus. No ptosis. Neck: Supple, no meningeal signs Oral: dentition fair, no thrush Cardiovascular: S1, S2 normal. Respiratory: Good air entry, clear to auscultation bilaterally GI: Soft, non-tender; bowel sounds normal. No peritoneal signs Musculoskeletal: s/p tma right fifth toe and metatarsal head. + dressing C/D/I Skin: No rash or abscess Hem/Lymphatic: No palpable cervical or supraclavicular nodes. No lymphangitis Psych: Mood ok. Affect normal Neurological: Awake, alert, oriented. No gross abnormality - Constitutional Vitals: Vital Signs Temp Pulse Resp BP Pulse Ox 98.0 F 68 16 106/69 96 05/07/19 06:33 05/07/19 06:33 05/07/19 06:33 05/07/19 06:33 05/07/19 06:33 Temperature -Last 24 Hours Temperature 98.0 F Temperature 98.0 F Temperature 98.1 F Temperature 98.0 F - Labs CBC & Chem 7: 05/07/19 07:43 05/07/19 07:43 Labs: Abnormal lab results 05/07/19 05/07/19 Range/Units 07:43 07:43 WBC 1.8 L* (4.5-11.0) K/mm3 RBC 2.83 L (3.65-5.03) M/mm3 Hgb 7.8 L (11.8-15.2) gm/dl Hct 23.3 L (35.5-45.6) % MCV 82 L (84-94) fl MCH 27 L (28-32) pg Plt Count 567 H (140-440) K/mm3 Seg Neuts % (Manual) 72.0 H (40.0-70.0) % Lymphocytes % (Manual) 9.0 L (13.4-35.0) % Monocytes % (Manual) 9.0 H (0.0-7.3) % Seg Neutrophils # Man 1.3 L (1.8-7.7) K/mm3 Lymphocytes # (Manual) 0.2 L (1.2-5.4) K/mm3 Sodium 134 L (137-145) mmol/L Chloride 97.6 L (98-107) mmol/L Calcium 7.9 L (8.4-10.2) mg/dL
[2019-05-07] MEDS: K-DUR PO SCH (11:30)
[2019-05-07] MEDS: MAXIPIME/NS 2 GM/100 ML 2 GM/100 ML BAG IV SCH (11:30)
[2019-05-07] MEDS: PEPCID IV SCH ×2 (11:30→22:34)
[2019-05-07] MEDS: SODIUM CHLORIDE FLUSH SYRINGE 10 ML IV SCH ×2 (11:31→22:34)
--- NOTE | 2019-05-07 16:20 | Progress Note ---
Assessment and Plan Assessment and plan: Sepsis due to right foot cellulitis, gangrene and bilateral pneumonia. present on admission. Patient continues to have fever and leukopenia. Continue antibiotics per ID Right foot cellulitis, gangrene X-ray of the right foot showed subcutaneous gas throughout the right fifth toe. 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 Dr. Sharma following. Surgery has been consulted for possible amputation. Wet gangrene of right 5th and partial 4th toe s/p TMA - right 5th toe necrotic skin and SQ tissue of the distal right foot and lateral 4th toe were excised Bilateral pneumonia Bilat infiltrates on CXR, ground glass appearance on CT Follow-up chest x-ray shows minimal improvement. ?PJP--follow up LDH and PJP DFA Continue Bactrim DS 2 tabs PO TID BNP normal Echo EF 45-50%. consulted Pulm ?HIV: HIV labs- CD4, VL, genotype, Crypotcoccus antigen and AFB-blood cultures obtained. Hyponatremia Repeat in am marijuana use Disposition. Likely discharge in a.m. Full code status History Interval history: patient is 38-year-old male presents to the ED with complaint of right foot injury. Patient states he hit his right foot on the dresser 1 week ago with progression of discoloration presents to the ER with gangrene of the right fifth toe as well as the lateral aspect of the right fourth toe extending to the distal foot. Dry gangrene distally with wet gangrene proximally. The margins are well demarcated. His right foot is diffusely edematous and warm without exudates. The patient states that he has no history of IV drug abuse. No new issues overnight. Hospitalist Physical - Constitutional Vitals: Temp Pulse Resp BP Pulse Ox 98.4 F 65 20 106/69 99 05/07/19 12:19 05/07/19 12:19 05/07/19 12:19 05/07/19 12:19 05/07/19 12:19 General appearance: Present: no acute distress - EENT Eyes: Present: PERRL, EOM intact ENT: hearing intact, clear oral mucosa, dentition normal - Neck Neck: Present: supple, normal ROM - Respiratory Respiratory effort: normal Respiratory: bilateral: CTA - Cardiovascular Rhythm: regular Heart Sounds: Present: S1 & S2. Absent: gallop, rub - Extremities Extremities: no ischemia, No edema, Full ROM - Abdominal General gastrointestinal: soft, non-tender, non-distended, normal bowel sounds - Integumentary Integumentary: Present: clear, warm, dry - Neurologic Neurologic: CNII-XII intact, moves all extremities Results - Labs CBC & Chem 7: 05/07/19 07:43 05/07/19 07:43 Labs: Laboratory Last Values WBC 1.8 K/mm3 (4.5-11.0) L* 05/07/19 07:43 RBC 2.83 M/mm3 (3.65-5.03) L 05/07/19 07:43 Hgb 7.8 gm/dl (11.8-15.2) L 05/07/19 07:43 Hct 23.3 % (35.5-45.6) L 05/07/19 07:43 MCV 82 fl (84-94) L 05/07/19 07:43 MCH 27 pg (28-32) L 05/07/19 07:43 MCHC 33 % (32-34) 05/07/19 07:43 RDW 15.2 % (13.2-15.2) 05/07/19 07:43 Plt Count 567 K/mm3 (140-440) H 05/07/19 07:43 [place] % (Auto) House Moving Supervisor 05/06/19 00:11 Eos % (Auto) 1.8 % (0.0-4.3) 05/01/19 07:15 [place] # 0.2 K/mm3 (0.0-0.8) 05/01/19 07:15 Eos # 0.1 K/mm3 (0.0-0.4) 05/01/19 07:15 Baso # 0.0 K/mm3 (0.0-0.1) 05/01/19 07:15 Add Manual Diff Complete 05/07/19 07:43 Total Counted 100 05/07/19 07:43 Seg Neutrophils % House Moving Supervisor 05/06/19 00:11 Seg Neuts % (Manual) 72.0 % (40.0-70.0) H 05/07/19 07:43 6.0 % 05/07/19 07:43 9.0 % (13.4-35.0) L 05/07/19 07:43 Reactive Lymphs % (Man) 1.0 % 05/07/19 07:43 9.0 % (0.0-7.3) H 05/07/19 07:43 2.0 % (0.0-4.3) 05/07/19 07:43 1.0 % (0.0-1.8) 05/07/19 07:43 0 % 05/07/19 07:43 0 % 05/07/19 07:43 0 % 05/07/19 07:43 0 % 05/07/19 07:43 Nucleated RBC % Not Reportable 05/07/19 07:43 Seg Neutrophils # 2.5 K/mm3 (1.8-7.7) 05/01/19 07:15 Seg Neutrophils # Man 1.3 K/mm3 (1.8-7.7) L 05/07/19 07:43 Band Neutrophils # 0.1 K/mm3 05/07/19 07:43 0.2 K/mm3 (1.2-5.4) L 05/07/19 07:43 Abs React Lymphs (Man) 0.0 K/mm3 05/07/19 07:43 0.2 K/mm3 (0.0-0.8) 05/07/19 07:43 0.0 K/mm3 (0.0-0.4) 05/07/19 07:43 0.0 K/mm3 (0.0-0.1) 05/07/19 07:43 0.0 K/mm3 05/07/19 07:43 0.0 K/mm3 05/07/19 07:43 0.0 K/mm3 05/07/19 07:43 Blast Cells # 0.0 K/mm3 05/07/19 07:43 WBC Morphology Not Reportable 05/07/19 07:43 Hypersegmented Neuts Not Reportable 05/07/19 07:43 Hyposegmented Neuts Not Reportable 05/07/19 07:43 Hypogranular Neuts Not Reportable 05/07/19 07:43 Not Reportable 05/07/19 07:43 Not Reportable 05/07/19 07:43 Not Reportable 05/07/19 07:43 Not Reportable 05/07/19 07:43 Not Reportable 05/07/19 07:43 Not Reportable 05/07/19 07:43 Consistent w auto 05/07/19 07:43 Not Reportable 05/07/19 07:43 Plt Clumps, EDTA Not Reportable 05/07/19 07:43 Not Reportable 05/07/19 07:43 Not Reportable 05/07/19 07:43 Not Reportable 05/07/19 07:43 Plt Morphology Comment Not Reportable 05/07/19 07:43 RBC Morphology Not Reportable 05/07/19 07:43 Dimorphic RBCs Not Reportable 05/07/19 07:43 Not Reportable 05/07/19 07:43 Not Reportable 05/07/19 07:43 Not Reportable 05/07/19 07:43 1+ 05/07/19 07:43 Not Reportable 05/07/19 07:43 Not Reportable 05/07/19 07:43 Not Reportable 05/07/19 07:43 Not Reportable 05/07/19 07:43 Not Reportable 05/07/19 07:43 Not Reportable 05/07/19 07:43 Not Reportable 05/07/19 07:43 Few 05/07/19 07:43 Not Reportable 05/07/19 07:43 Not Reportable 05/07/19 07:43 Not Reportable 05/07/19 07:43 Not Reportable 05/07/19 07:43 Not Reportable 05/07/19 07:43 Not Reportable 05/07/19 07:43 Few 05/07/19 07:43 Acanthocytes (Spur) Not Reportable 05/07/19 07:43 Rouleaux Not Reportable 05/07/19 07:43 Not Reportable 05/07/19 07:43 Not Reportable 05/07/19 07:43 Not Reportable 05/07/19 07:43 Not Reportable 05/07/19 07:43 Hem Pathologist Commnt No 05/07/19 07:43 Sodium 134 mmol/L (137-145) L 05/07/19 07:43 Potassium 4.0 mmol/L (3.6-5.0) 05/07/19 07:43 Chloride 97.6 mmol/L (98-107) L 05/07/19 07:43 Carbon Dioxide 26 mmol/L (22-30) 05/07/19 07:43 14 mmol/L 05/07/19 07:43 BUN 11 mg/dL (9-20) 05/07/19 07:43 0.8 mg/dL (0.8-1.5) 05/07/19 07:43 Estimated GFR > 60 ml/min 05/07/19 07:43 14 % 05/07/19 07:43 Glucose 88 mg/dL (75-100) 05/07/19 07:43 POC Glucose 92 (70-105) 05/03/19 07:52 5.8 % (4-6) 04/30/19 11:20 Lactic Acid 0.70 mmol/L (0.7-2.0) 04/30/19 16:19 Calcium 7.9 mg/dL (8.4-10.2) L 05/07/19 07:43 0.40 mg/dL (0.1-1.2) 05/01/19 07:15 AST 34 units/L (5-40) 05/01/19 07:15 ALT 22 units/L (7-56) 05/01/19 07:15 568 units/L (35-129) H 05/01/19 07:15 486 units/L (91-180) H 05/04/19 09:30 NT-Pro-B Natriuret Pep 297.9 pg/mL (0-450) 05/01/19 15:48 6.6 g/dL (6.3-8.2) 05/01/19 07:15 2.5 g/dL (3.9-5) L 05/01/19 07:15 0.6 % 05/01/19 07:15 Yellow (Yellow) 04/30/19 23:00 Clear (Clear) 04/30/19 23:00 6.0 (5.0-7.0) 04/30/19 23:00 Ur Specific [place] 1.032 (1.003-1.030) H 04/30/19 23:00 100 mg/dl mg/dL (Negative) 04/30/19 23:00 Neg mg/dL (Negative) 04/30/19 23:00 Neg mg/dL (Negative) 04/30/19 23:00 Sm (Negative) 04/30/19 23:00 Neg (Negative) 04/30/19 23:00 Neg (Negative) 04/30/19 23:00 4.0 mg/dL (<2.0) 04/30/19 23:00 Ur Leukocyte Esterase Neg (Negative) 04/30/19 23:00 4.0 /HPF (0.0-6.0) 04/30/19 23:00 10.0 /HPF (0.0-6.0) 04/30/19 23:00 Few /HPF 04/30/19 23:00 Vancomycin Trough 11.6 ug/mL (5.0-20.0) 05/06/19 00:11 Presumptive negative 04/30/19 23:00 Presumptive negative 04/30/19 23:00 Ur Barbiturates Screen Presumptive negative 04/30/19 23:00 Ur Phencyclidine Scrn Presumptive negative 04/30/19 23:00 Ur Amphetamines Screen Presumptive negative 04/30/19 23:00 U Benzodiazepines Scrn Presumptive negative 04/30/19 23:00 Presumptive negative 04/30/19 23:00 U Marijuana (THC) Screen Presumptive positive 04/30/19 23:00 Disclamer 04/30/19 23:00 HIV 1&2 Antibody Rapid Reactive (Non React) 05/04/19 09:30 Non react (Non React) 05/04/19 09:30 Active Medications - Current Medications Current Medications: Generic Name Dose Route Start Last Admin Trade Name Freq PRN Reason Stop Dose Admin Acetaminophen 650 mg 04/30/19 20:03 05/04/19 13:15 Tylenol PO 650 mg Q4H PRN Administration Pain MILD(1-3)/Fever >100.5/TERRY Famotidine 20 mg 04/30/19 22:00 05/07/19 11:30 Pepcid IV 20 mg BID MARIPOSA Administration Furosemide 20 mg 05/03/19 18:00 05/07/19 05:01 Lasix IV 20 mg 0600,1800 MARIPOSA Administration Guaifenesin 200 mg 05/02/19 09:15 05/04/19 20:27 Robitussin PO 200 mg Q4H PRN Administration Cough Heparin Sodium (Porcine) 5,000 unit 05/01/19 16:00 05/07/19 16:06 Heparin SUB-Q 5,000 unit Q8HR MARIPOSA Administration Hydromorphone HCl 0.5 mg 04/30/19 20:03 05/06/19 21:32 Dilaudid IV 0.5 mg Q3H PRN Administration Pain , Severe (7-10) Sodium Chloride 1,000 mls @ 75 mls/hr 04/30/19 21:00 05/06/19 17:27 Nacl 0.9% 1000 Ml IV 75 mls/hr DIRECT MARIPOSA Administration Lactated Ringer's 1,000 mls @ 75 mls/hr 05/05/19 13:00 05/06/19 17:25 Lactated Ringers IV 75 mls/hr DIRECT MARIPOSA Administration Ibuprofen 600 mg 04/30/19 20:03 05/02/19 12:16 Ibuprofen PO 600 mg Q6H PRN Administration Pain, Mild (1-3) Metoclopramide HCl 10 mg 04/30/19 20:03 Reglan IV Q6H PRN Nausea And Vomiting Ondansetron HCl 4 mg 04/30/19 20:03 Zofran IV Q8H PRN Nausea And Vomiting Oxycodone/Acetaminophen 1 tab 05/06/19 08:39 05/06/19 14:33 Percocet 5/325 PO 1 tab Q4H PRN Administration Pain, Moderate (4-6) Potassium Chloride 20 meq 05/03/19 15:00 05/07/19 11:30 K-Dur PO 20 meq QDAY MARIPOSA Administration Sodium Chloride 10 ml 04/30/19 22:00 05/07/19 11:31 Sodium Chloride Flush Syringe 10 Ml IV 10 ml BID MARIPOSA Administration Sodium Chloride 10 ml 04/30/19 20:03 Sodium Chloride Flush Syringe 10 Ml IV PRN PRN LINE FLUSH Trimethoprim/Sulfamethoxazole 2 each 05/04/19 09:00 05/07/19 16:15 Bactrim Ds PO 2 each Q8HR MARIPOSA Administration
[2019-05-08] MEDS: HEPARIN SUB-Q SCH ×3 (06:26→21:48)
[2019-05-08] MEDS: LASIX IV SCH (06:27)
[2019-05-08] MEDS: BACTRIM DS PO SCH ×3 (06:27→21:47)
[2019-05-08] MEDS: SODIUM CHLORIDE FLUSH SYRINGE 10 ML IV SCH ×2 (09:51→21:48)
[2019-05-08] MEDS: K-DUR PO SCH (09:51)
[2019-05-08] MEDS: PEPCID IV SCH ×2 (09:51→21:47)
--- NOTE | 2019-05-08 12:44 | Progress Note ---
Assessment and Plan Assessment and plan: Sepsis due to right foot cellulitis, gangrene and bilateral pneumonia. Patient continues to have fever and leukopenia. Continue antibiotics per ID Right foot cellulitis, gangrene X-ray of the right foot showed subcutaneous gas throughout the right fifth toe. 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 Dr. Sharma following. Surgery has been consulted for possible amputation. Wet gangrene of right 5th and partial 4th toe s/p TMA - right 5th toe necrotic skin and SQ tissue of the distal right foot and lateral 4th toe were excised Bilateral pneumonia Bilat infiltrates on CXR, ground glass appearance on CT Follow-up chest x-ray shows minimal improvement. ?PJP--follow up LDH and PJP DFA Continue Bactrim DS 2 tabs PO TID BNP normal Echo EF 45-50%. consulted Pulm ?HIV: HIV labs- CD4, VL, genotype, Crypotcoccus antigen and AFB-blood cultures obtained. Hyponatremia Repeat in am marijuana use Disposition. Likely discharge in a.m. Full code status History Interval history: patient is 38-year-old male presents to the ED with complaint of right foot injury. Patient states he hit his right foot on the dresser 1 week ago with progression of discoloration presents to the ER with gangrene of the right fifth toe as well as the lateral aspect of the right fourth toe extending to the distal foot. Dry gangrene distally with wet gangrene proximally. The margins are well demarcated. His right foot is diffusely edematous and warm without exudates. The patient states that he has no history of IV drug abuse. No new issues overnight. Hospitalist Physical - Constitutional Vitals: Temp Pulse Resp BP Pulse Ox 98.8 F 71 20 125/75 98 05/08/19 05:42 05/08/19 05:42 05/07/19 22:42 05/08/19 05:42 05/08/19 05:42 General appearance: Present: no acute distress - EENT Eyes: Present: PERRL, EOM intact ENT: hearing intact, clear oral mucosa, dentition normal - Neck Neck: Present: supple, normal ROM - Respiratory Respiratory effort: normal Respiratory: bilateral: CTA - Cardiovascular Rhythm: regular Heart Sounds: Present: S1 & S2. Absent: gallop, rub - Extremities Extremities: no ischemia, No edema, Full ROM - Abdominal General gastrointestinal: soft, non-tender, non-distended, normal bowel sounds - Integumentary Integumentary: Present: clear, warm, dry - Neurologic Neurologic: CNII-XII intact, moves all extremities Results - Labs CBC & Chem 7: 05/07/19 07:43 05/07/19 07:43 Labs: Laboratory Last Values WBC 1.8 K/mm3 (4.5-11.0) L* 05/07/19 07:43 RBC 2.83 M/mm3 (3.65-5.03) L 05/07/19 07:43 Hgb 7.8 gm/dl (11.8-15.2) L 05/07/19 07:43 Hct 23.3 % (35.5-45.6) L 05/07/19 07:43 MCV 82 fl (84-94) L 05/07/19 07:43 MCH 27 pg (28-32) L 05/07/19 07:43 MCHC 33 % (32-34) 05/07/19 07:43 RDW 15.2 % (13.2-15.2) 05/07/19 07:43 Plt Count 567 K/mm3 (140-440) H 05/07/19 07:43 [place] % (Auto) Profile Saw Setup Operator 05/06/19 00:11 Eos % (Auto) 1.8 % (0.0-4.3) 05/01/19 07:15 [place] # 0.2 K/mm3 (0.0-0.8) 05/01/19 07:15 Eos # 0.1 K/mm3 (0.0-0.4) 05/01/19 07:15 Baso # 0.0 K/mm3 (0.0-0.1) 05/01/19 07:15 Add Manual Diff Complete 05/07/19 07:43 Total Counted 100 05/07/19 07:43 Seg Neutrophils % Profile Saw Setup Operator 05/06/19 00:11 Seg Neuts % (Manual) 72.0 % (40.0-70.0) H 05/07/19 07:43 6.0 % 05/07/19 07:43 9.0 % (13.4-35.0) L 05/07/19 07:43 Reactive Lymphs % (Man) 1.0 % 05/07/19 07:43 9.0 % (0.0-7.3) H 05/07/19 07:43 2.0 % (0.0-4.3) 05/07/19 07:43 1.0 % (0.0-1.8) 05/07/19 07:43 0 % 05/07/19 07:43 0 % 05/07/19 07:43 0 % 05/07/19 07:43 0 % 05/07/19 07:43 Nucleated RBC % Not Reportable 05/07/19 07:43 Seg Neutrophils # 2.5 K/mm3 (1.8-7.7) 05/01/19 07:15 Seg Neutrophils # Man 1.3 K/mm3 (1.8-7.7) L 05/07/19 07:43 Band Neutrophils # 0.1 K/mm3 05/07/19 07:43 0.2 K/mm3 (1.2-5.4) L 05/07/19 07:43 Abs React Lymphs (Man) 0.0 K/mm3 05/07/19 07:43 0.2 K/mm3 (0.0-0.8) 05/07/19 07:43 0.0 K/mm3 (0.0-0.4) 05/07/19 07:43 0.0 K/mm3 (0.0-0.1) 05/07/19 07:43 0.0 K/mm3 05/07/19 07:43 0.0 K/mm3 05/07/19 07:43 0.0 K/mm3 05/07/19 07:43 Blast Cells # 0.0 K/mm3 05/07/19 07:43 WBC Morphology Not Reportable 05/07/19 07:43 Hypersegmented Neuts Not Reportable 05/07/19 07:43 Hyposegmented Neuts Not Reportable 05/07/19 07:43 Hypogranular Neuts Not Reportable 05/07/19 07:43 Not Reportable 05/07/19 07:43 Not Reportable 05/07/19 07:43 Not Reportable 05/07/19 07:43 Not Reportable 05/07/19 07:43 Not Reportable 05/07/19 07:43 Not Reportable 05/07/19 07:43 Consistent w auto 05/07/19 07:43 Not Reportable 05/07/19 07:43 Plt Clumps, EDTA Not Reportable 05/07/19 07:43 Not Reportable 05/07/19 07:43 Not Reportable 05/07/19 07:43 Not Reportable 05/07/19 07:43 Plt Morphology Comment Not Reportable 05/07/19 07:43 RBC Morphology Not Reportable 05/07/19 07:43 Dimorphic RBCs Not Reportable 05/07/19 07:43 Not Reportable 05/07/19 07:43 Not Reportable 05/07/19 07:43 Not Reportable 05/07/19 07:43 1+ 05/07/19 07:43 Not Reportable 05/07/19 07:43 Not Reportable 05/07/19 07:43 Not Reportable 05/07/19 07:43 Not Reportable 05/07/19 07:43 Not Reportable 05/07/19 07:43 Not Reportable 05/07/19 07:43 Not Reportable 05/07/19 07:43 Few 05/07/19 07:43 Not Reportable 05/07/19 07:43 Not Reportable 05/07/19 07:43 Not Reportable 05/07/19 07:43 Not Reportable 05/07/19 07:43 Not Reportable 05/07/19 07:43 Not Reportable 05/07/19 07:43 Few 05/07/19 07:43 Acanthocytes (Spur) Not Reportable 05/07/19 07:43 Rouleaux Not Reportable 05/07/19 07:43 Not Reportable 05/07/19 07:43 Not Reportable 05/07/19 07:43 Not Reportable 05/07/19 07:43 Not Reportable 05/07/19 07:43 Hem Pathologist Commnt No 05/07/19 07:43 Sodium 134 mmol/L (137-145) L 05/07/19 07:43 Potassium 4.0 mmol/L (3.6-5.0) 05/07/19 07:43 Chloride 97.6 mmol/L (98-107) L 05/07/19 07:43 Carbon Dioxide 26 mmol/L (22-30) 05/07/19 07:43 14 mmol/L 05/07/19 07:43 BUN 11 mg/dL (9-20) 05/07/19 07:43 0.8 mg/dL (0.8-1.5) 05/07/19 07:43 Estimated GFR > 60 ml/min 05/07/19 07:43 14 % 05/07/19 07:43 Glucose 88 mg/dL (75-100) 05/07/19 07:43 POC Glucose 92 (70-105) 05/03/19 07:52 5.8 % (4-6) 04/30/19 11:20 Lactic Acid 0.70 mmol/L (0.7-2.0) 04/30/19 16:19 Calcium 7.9 mg/dL (8.4-10.2) L 05/07/19 07:43 0.40 mg/dL (0.1-1.2) 05/01/19 07:15 AST 34 units/L (5-40) 05/01/19 07:15 ALT 22 units/L (7-56) 05/01/19 07:15 568 units/L (35-129) H 05/01/19 07:15 486 units/L (91-180) H 05/04/19 09:30 NT-Pro-B Natriuret Pep 297.9 pg/mL (0-450) 05/01/19 15:48 6.6 g/dL (6.3-8.2) 05/01/19 07:15 2.5 g/dL (3.9-5) L 05/01/19 07:15 0.6 % 05/01/19 07:15 Yellow (Yellow) 04/30/19 23:00 Clear (Clear) 04/30/19 23:00 6.0 (5.0-7.0) 04/30/19 23:00 Ur Specific [place] 1.032 (1.003-1.030) H 04/30/19 23:00 100 mg/dl mg/dL (Negative) 04/30/19 23:00 Neg mg/dL (Negative) 04/30/19 23:00 Neg mg/dL (Negative) 04/30/19 23:00 Sm (Negative) 04/30/19 23:00 Neg (Negative) 04/30/19 23:00 Neg (Negative) 04/30/19 23:00 4.0 mg/dL (<2.0) 04/30/19 23:00 Ur Leukocyte Esterase Neg (Negative) 04/30/19 23:00 4.0 /HPF (0.0-6.0) 04/30/19 23:00 10.0 /HPF (0.0-6.0) 04/30/19 23:00 Few /HPF 04/30/19 23:00 Vancomycin Trough 11.6 ug/mL (5.0-20.0) 05/06/19 00:11 Presumptive negative 04/30/19 23:00 Presumptive negative 04/30/19 23:00 Ur Barbiturates Screen Presumptive negative 04/30/19 23:00 Ur Phencyclidine Scrn Presumptive negative 04/30/19 23:00 Ur Amphetamines Screen Presumptive negative 04/30/19 23:00 U Benzodiazepines Scrn Presumptive negative 04/30/19 23:00 Presumptive negative 04/30/19 23:00 U Marijuana (THC) Screen Presumptive positive 04/30/19 23:00 Disclamer 04/30/19 23:00 HIV 1&2 Antibody Rapid Reactive (Non React) 05/04/19 09:30 Non react (Non React) 05/04/19 09:30 Active Medications - Current Medications Current Medications: Generic Name Dose Route Start Last Admin Trade Name Freq PRN Reason Stop Dose Admin Acetaminophen 650 mg 04/30/19 20:03 05/04/19 13:15 Tylenol PO 650 mg Q4H PRN Administration Pain MILD(1-3)/Fever >100.5/TERRY Famotidine 20 mg 04/30/19 22:00 05/08/19 09:51 Pepcid IV 20 mg BID MARIPOSA Administration Furosemide 20 mg 05/03/19 18:00 05/08/19 06:27 Lasix IV 20 mg 0600,1800 MARIPOSA Administration Guaifenesin 200 mg 05/02/19 09:15 05/04/19 20:27 Robitussin PO 200 mg Q4H PRN Administration Cough Heparin Sodium (Porcine) 5,000 unit 05/01/19 16:00 05/08/19 06:26 Heparin SUB-Q 5,000 unit Q8HR MARIPOSA Administration Hydromorphone HCl 0.5 mg 04/30/19 20:03 05/06/19 21:32 Dilaudid IV 0.5 mg Q3H PRN Administration Pain , Severe (7-10) Sodium Chloride 1,000 mls @ 75 mls/hr 04/30/19 21:00 05/06/19 17:27 Nacl 0.9% 1000 Ml IV 75 mls/hr DIRECT MARIPOSA Administration Lactated Ringer's 1,000 mls @ 75 mls/hr 05/05/19 13:00 05/06/19 17:25 Lactated Ringers IV 75 mls/hr DIRECT MARIPOSA Administration Ibuprofen 600 mg 04/30/19 20:03 05/02/19 12:16 Ibuprofen PO 600 mg Q6H PRN Administration Pain, Mild (1-3) Metoclopramide HCl 10 mg 04/30/19 20:03 Reglan IV Q6H PRN Nausea And Vomiting Ondansetron HCl 4 mg 04/30/19 20:03 Zofran IV Q8H PRN Nausea And Vomiting Oxycodone/Acetaminophen 1 tab 05/06/19 08:39 05/06/19 14:33 Percocet 5/325 PO 1 tab Q4H PRN Administration Pain, Moderate (4-6) Potassium Chloride 20 meq 05/03/19 15:00 05/08/19 09:51 K-Dur PO 20 meq QDAY MARIPOSA Administration Sodium Chloride 10 ml 04/30/19 22:00 05/08/19 09:51 Sodium Chloride Flush Syringe 10 Ml IV 10 ml BID MARIPOSA Administration Sodium Chloride 10 ml 04/30/19 20:03 Sodium Chloride Flush Syringe 10 Ml IV PRN PRN LINE FLUSH Trimethoprim/Sulfamethoxazole 2 each 05/04/19 09:00 05/08/19 06:27 Bactrim Ds PO 2 each Q8HR MARIPOSA Administration
--- NOTE | 2019-05-08 17:04 | XRay Report ---
PROCEDURE: XR CHEST ROUTINE 2V TECHNIQUE: PA and lateral chest radiographs were obtained. HISTORY: pneumonia COMPARISONS: Prior chest x-ray 05/04/2019. FINDINGS: Heart: Heart size upper normal.. Mediastinum/Vessels: Normal. Lungs/Pleural space: Diffuse interstitial prominence bilaterally and scattered patchy alveolar densi ties again visualized. Accounting for slight difference in technique this is probably unchanged. No e ffusions are developed.. Bony thorax: No acute osseous abnormality. IMPRESSION: Stable exam. Persistent marked prominence of interstitial markings and mild patchy alveo lar densities suggesting pneumonia versus pneumonitis. No effusions have developed. Heart size upper normal.. This document is electronically signed by Gideon Hyatt MD., May 08 2019 05:03:12 PM ET
--- NOTE | 2019-05-08 18:35 | Discharge Summary ---
Providers - Providers Date of Admission: 04/30/19 13:11 Date of discharge: 05/09/19 Attending physician: YIN PEDRO 04/30/19 Consult to Case Management [CONS] Routine Services Needed at Discharge: Home Health Services Notified:: cm 04/30/19 13:08 Consult to Physician [CONS] Stat Comment: Dr. Dewitt spoke with Dr. Bingham @ [phone] Consulting Provider: JOSEFA BINGHAM Physician Instructions: Reason For Exam: gangrenous foot Consult to Physician [CONS] Stat Comment: Dr. Dewitt spoke with Dr. Moreira @ [phone] Consulting Provider: MILAN MOREIRA Physician Instructions: Reason For Exam: gangrenous foot 05/01/19 07:07 Consult to Wound/ET Nurse [CONS] Urgent Reason For Exam: wound eval 05/01/19 07:44 Consult to Physician [CONS] Routine Comment: Consulting Provider: BETHANIE BRANCH Physician Instructions: Reason For Exam: Rt foot cellulitis/Gangrene 05/02/19 16:14 Consult to Physician [CONS] Routine Comment: Consulting Provider: JUANJO GAINES Physician Instructions: Reason For Exam: Cardiomyopathy 05/03/19 14:06 Consult to Physician [CONS] Routine Comment: Consulting Provider: ONIEL SALAS Physician Instructions: Reason For Exam: ischemic foot 05/06/19 08:30 Consult to Wound/ET Nurse [CONS] Routine Reason For Exam: wound eval 05/08/19 12:51 Physical Therapy Evaluation and Treat [CONS] Routine Comment: Reason For Exam: Eval for ?offloading boot [facility] Reason for admission: Right foot cellulitis Condition: Stable Hospital course: The pt is a 38-year-old male with no significant past medical history who presented on 04/30 with c/o right 5th toe pain after stumping his toe on a night stand. He was subsequently found to have right foot cellulitis with gangrene of the 5th toe and sepsis. X-ray of the right foot showed subcutaneous gas throughout the right fifth toe. ID was consulted and treated with appropriate abx. Surgery also consulted for debridement. Wound culture grew Proteus, GNR, susceptible to Cefepime/Bactrim. Surgery performed Transmetatarsal amputation of right 5th and possibly right 4th toes. He underwent tte which showed EF 45- 50%, mild LVH, LA mildly dilated, RV mild to mod dilated, RA mod to severely dilated, mild MR, mild to mod TR. Cardiology was consulted for further evaluation of mild LV dysfunction. PT with CXR that rrevealed patchy infiltrate initially thought to be CHF. However, later CXR was felt to represent Bilat eral PNA, presumed PJP. ?HIV: preliminary screening for HIV reactive, patient refusing confirmatory test. Agreed to further testing and f/u as OP with ID. Plan at discharge Continue Bactrim DS 2 tabs PO TIDfollow-up PJP DFA, Crypto antigen follow-up deep wound cultures follow-up AFB blood cultures , CD4, VL and genotype continue wound care, follow-up wound care clinic Anticipate discharge on Bactrim DS 2 tabs PO TID to cover PJP and toe infection for 21 days follow-up in ID clinic in 2-3 weeks , will review toe pathology and HIV testing Disposition: DC- TO HOME OR SELFCARE Time spent for discharge: 35 - Discharge Diagnoses (1) Pneumonia Status: Acute (2) Acute respiratory failure Status: Acute (3) Asymptomatic LV dysfunction Status: Acute (4) Cellulitis and abscess of foot Status: Acute (5) Gangrene of right foot Status: Acute (6) Sepsis Status: Acute Core Measure Documentation - Palliative Care Palliative Care/ Comfort Measures: Not Applicable - Core Measures Any of the following diagnoses?: none Exam - Constitutional Vitals: Temp Pulse Resp BP Pulse Ox 97.9 F 68 19 115/65 100 05/08/19 12:16 05/08/19 12:16 05/08/19 12:16 05/08/19 12:16 05/08/19 12:16 General appearance: Present: no acute distress, well-nourished - EENT Eyes: Present: PERRL ENT: hearing intact, clear oral mucosa - Neck Neck: Present: supple, normal ROM - Respiratory Respiratory effort: normal Respiratory: bilateral: CTA - Cardiovascular Heart Sounds: Present: S1 & S2. Absent: rub, click - Extremities Extremities: pulses symmetrical, No edema Peripheral Pulses: within normal limits - Abdominal General gastrointestinal: Present: soft, non-tender, non-distended, normal bowel sounds Male genitourinary: Present: normal - Integumentary Integumentary: Present: clear, warm, dry - Musculoskeletal Musculoskeletal: gait normal, strength equal bilaterally - Psychiatric Psychiatric: appropriate mood/affect, intact judgment & insight - Neurologic Neurologic: CNII-XII intact, moves all extremities Plan Activity: advance as tolerated Weight Bearing Status: Weight Bear as Tolerated Diet: regular Additional Instructions: Continue Bactrim DS 2 tabs PO TID -Preliminary screen for HIV reactive. follow-up PJP DFA, Crypto antigen. follow-up deep wound cultures. follow-up AFB blood cultures , CD4, VL and genotype. continue wound care, follow-up wound care clinic. Anticipate discharge on Bactrim DS 2 tabs PO TID to cover PJP and toe infection for 21 days. follow-up in ID clinic in 2- 3 weeks , will review toe pathology and HIV testing [facility] [place] [facility] [Primary Care Provider] - 3-5 Days Prescriptions: Sulfamethoxazole/Trimethoprim [Bactrim DS TAB] 2 each PO Q8HR 21 Days #126 tablet
[2019-05-09] MEDS: HEPARIN SUB-Q SCH (06:29)
[2019-05-09] MEDS: BACTRIM DS PO SCH (06:29)
[2019-05-09] MEDS: PEPCID IV SCH (10:20)
[2019-05-09] MEDS: SODIUM CHLORIDE FLUSH SYRINGE 10 ML IV SCH (10:20)
[2019-05-09] MEDS: K-DUR PO SCH (10:20)
[2019-05-09 12:24] VITALS: BP 94/56
[2019-05-11 18:16] LABS: HIV-1 RNA QN PCR 4.26 Log cps/mL
[2019-05-18 16:08] LABS: CD19, Absolute SEE SCANNED RESULT; CD3, Absolute SEE SCANNED RESULT; CD3, Percentage SEE SCANNED RESULT; CD4, Absolute SEE SCANNED RESULT; CD4, Percentage SEE SCANNED RESULT; CD4/CD8 Ratio SEE SCANNED RESULT; CD8, Absolute SEE SCANNED RESULT; CD8, Percentage SEE SCANNED RESULT; Lymphocytes, Absolute SEE SCANNED RESULT
[2019-05-18 16:09] LABS: HIV-1 Antibody Differentiation SEE SCANNED RESULT; HIV-2 Antibody Differentiation SEE SCANNED RESULT
== END 2019-05-09 15:00 | disposition home or self-care (01) | DRG 853 ==
LOC: ED 10:46 → 3A 13:11
PROVIDERS: ADMIT Internal Medicine; ATTEND Hospitalist
PROC: 3E0234Z Introduction of Serum, Toxoid and Vaccine into Muscle, Percutaneous Approach (ICD-10-PCS; 2019-04-30)
PROC: 0Y6X0Z0 Detachment at Right 5th Toe, Complete, Open Approach (ICD-10-PCS; principal; 2019-05-05)
PROC: 0JBQ0ZZ Excision of Right Foot Subcutaneous Tissue and Fascia, Open Approach (ICD-10-PCS; 2019-05-05)
DX: A41.59 Other Gram-negative sepsis (principal); J96.00 Acute respiratory failure, unspecified whether with hypoxia or hypercapnia; J18.9 Pneumonia, unspecified organism; I96 Gangrene, not elsewhere classified; L03.115 Cellulitis of right lower limb; L02.611 Cutaneous abscess of right foot; T79.7XXA Traumatic subcutaneous emphysema, initial encounter; E87.1 Hypo-osmolality and hyponatremia; B96.4 Proteus (mirabilis) (morganii) as the cause of diseases classified elsewhere; X58.XXXA Exposure to other specified factors, initial encounter; I08.1 Rheumatic disorders of both mitral and tricuspid valves; Z21 Asymptomatic human immunodeficiency virus [HIV] infection status; D64.9 Anemia, unspecified; F12.10 Cannabis abuse, uncomplicated; Z71.51 Drug abuse counseling and surveillance of drug abuser; Z23 Encounter for immunization
CPT/HCPCS: 36415; 71045; 71046; 71275; 75635; 80048; 80053; 80202; 80307; 81001; 82024; 82140; 82962; 83036; 83615; 83880; 85007; 85025; 85027; 86403; 86689; 87040; 87075; 87076; 87116; 87186; 87205; 87536; 87806; 88305; 88311; 90471; 90715; 93005; 93010; 93306; 93925; 96361; 96365; 96367; G0378; J0692; J1170; J1644; J1940; J2250; J2704; J3010; J3370; J7030; J7040; J7050; J7120; Q9967